=== PATIENT | male | born 1955 | race American Indian/Alaskan Native ===

== ENCOUNTER 2018-03-17 13:58 | Emergency (ER) | payer MEDICARE, MEDICAID, OTHER ==
[2018-03-17 14:15] VITALS: BP 90/52
--- NOTE | 2018-03-17 14:29 | EDM.PDOC ---
ED HPI GENERAL MEDICAL PROBLEM - General Chief Complaint: Genitourinary Problem Stated Complaint: UNK ISSUES Time Seen by Provider: 03/17/18 14:03 - History of Present Illness INITIAL COMMENTS - FREE TEXT/NARRATIVE: HISTORY AND PHYSICAL: History of present illness: The patient is a 62-year-old male with a history of prostate cancer who is followed in the oncology clinic and is scheduled to have a bone scan done at 2: 30 PM today and who checked into the ED after being dropped off at the radiology department by oncology staff and came down and checked into the ED for evaluation of scrotal swelling. The patient knew that he had a bone scan to be done and he has been injected with the radioactive diet but he still came down to the ER and registered. He says his scrotal swelling has been going on for 3 weeks and he is concerned because he feels like it's "going to pop". He's been passing his urine without difficulty and has no fever chills abdominal pain hematuria or flank pain. He has a history of a fracture of his left leg which was thinned at [place] and he has had persistent swelling of the left lower extremity since that time which is not new or different. The patient is having the bone scan because they saw a spot on his spine and was concerned that this is either a new cancer or recurrence of his prostate cancer. The patient tells me he has discomfort at his scrotum and it is not right or left but the whole area. He said that this happened in the past and he was given a medicine "to get the fluid out" and that is what he is seeking. He says that there is tension of the scrotum and discomfort but does not specifically one area of pain. Review of systems: As per history of present illness and below otherwise all systems reviewed and negative. Past medical history: As per history of present illness and as reviewed below otherwise noncontributory. Surgical history: As per history of present illness and as reviewed below otherwise noncontributory. Social history: No reported history of drug or alcohol abuse. Family history: As per history of present illness and as reviewed below otherwise noncontributory. Physical exam: General: Well-developed well-nourished man who is nontoxic and has difficulty moving secondary to his left leg chronic injury. He speaking clearly and easily without distress. HEENT: Atraumatic, normocephalic,, negative for conjunctival pallor or scleral icterus, mucous membranes moist, throat clear, neck supple, nontender, trachea midline. Lungs: Clear to auscultation, breath sounds equal bilaterally, chest nontender. No worker breathing wheezing or stridor Heart: S1S2, regula rate and rhythm no overt murmurs Abdomen: Soft nondistended old well-healed scars are seen and there is no tenderness on palpation no rebound and no guarding. Bowel sounds are hypoactive Pelvis: Stable nontender. Genitourinary: Penis is involuted inside the foreskin and there is no inguinal adenopathy and no suprapubic tenderness. The scrotum is grossly swollen and edematous but is soft and it is symmetrical in appearance. The testicles are difficult to palpate within this edematous scrotum. There are no skin changes erythema or rashes appreciated. Rectal: Deferred. Extremities: Atraumatic with the entire left lower extremity from hip to foot is edematous with firm edema which the patient states is not new or different and he has decreased range of motion at the hip and knee secondary to his subacute trauma. All other extremities have full range of motion without defects or deficits Neurovascular unremarkable. Neuro: Awake, alert, oriented. Cranial nerves II through XII unremarkable. Cerebellum unremarkable. Motor and sensory unremarkable throughout. Exam nonfocal. Diagnostics: [] Therapeutics: [] As the patient needs to be in bone scan momentarily for a scheduled test to evaluate these areas on his spine and he has been injected with radioactive dye for this test, I will discuss the situation with a provider in oncology clinic, Sadaf Foster. At this point I would recommend a scrotal ultrasound and follow- up with Dr. Simeon as the patient has seen him in the distant past. I will discuss with the provider Sadaf ordering that scrotal ultrasound and then following up as an outpatient Impression: Scrotal swelling subacute stable Definitive disposition and diagnosis as appropriate pending reevaluation and review of above. Right Groin Pain Score (Numeric/FACES): 5 - Related Data Allergies Allergy/AdvReac Type Severity Reaction Status Date / Time lisinopril Allergy Cough Verified 06/10/17 10:05 methocarbamol Allergy Muscle Verified 06/10/17 10:05 Weakness Home Meds: Home Meds Albuterol Sulfate 1 unit NEB ASDIRECTED PRN 06/08/17 [History] Ascorbic Acid [Vitamin C] 2 tab PO DAILY 06/08/17 [History] Atenolol 25 mg PO DAILY 06/08/17 [History] Calcium Carbonate [Calcium] 2 tab PO DAILY 06/08/17 [History] Cholecalciferol (Vitamin D3) [Vitamin D3] 5,000 units PO DAILY 06/08/17 [History ] Cyanocobalamin (Vitamin B12) [Vitamin B12] 500 mcg PO BEDTIME 06/08/17 [History] Leuprolide [Lupron Depot 4-Month] 1 injection IM ASDIRECTED 06/08/17 [History] Losartan Potassium 100 mg PO DAILY 06/08/17 [History] Mometasone/Formoterol [Dulera 100-5 MCG] 1 puff INH BID 06/08/17 [History] Naproxen 500 mg PO BID PRN 06/08/17 [History] Omeprazole 20 mg PO DAILY 06/08/17 [History] Potassium Chloride [Klor-Con 8] 8 meq PO DAILY 06/08/17 [History] Venlafaxine [Effexor] 75 mg PO DAILY 06/08/17 [History] amLODIPine [Norvasc] 5 mg PO DAILY 06/08/17 [History] predniSONE [Prednisone] 10 mg PO DAILY 06/08/17 [History] Past Medical History Cardiovascular History: Reports: Hypertension Respiratory History: Reports: Asthma Gastrointestinal History: Reports: GERD Genitourinary History: Reports: Prostate Disorder Other Genitourinary History: prostate cancer Musculoskeletal History: Reports: Arthritis, RA Psychiatric History: Reports: Depression Endocrine/Metabolic History: Reports: None Oncologic (Cancer) History: Reports: Prostate - Past Surgical History Head Surgeries/Procedures: Reports: None Male Surgical History: Reports: Prostatectomy Musculoskeletal Surgical History: Reports: Hip Replacement Social & Family History - Caffeine Use Caffeine Use: Reports: Coffee, Tea ED ROS GENERAL - Review of Systems Review Of Systems: ROS reveals no pertinent complaints other than HPI. ED EXAM, GENERAL - Physical Exam Exam: See Below (See dictation) Course - Vital Signs Last Recorded V/S: Last Vital Signs Temp 36.7 C 03/17/18 14:10 Pulse 101 H 03/17/18 14:10 Resp 18 03/17/18 14:10 BP 90/52 L 03/17/18 14:10 Pulse Ox 96 03/17/18 14:10 Departure - Departure Time of Disposition: 14:38 Disposition: Home, Self-Care 01 Condition: Good Clinical Impression: Scrotal swelling - Discharge Information Referrals: Ricardo Rod MD [Primary Care Provider] - Forms: ED Department Discharge Additional Instructions: The following information is given to patients seen in the emergency department who are being discharged to home. This information is to outline your options for follow-up care. We provide all patients seen in our emergency department with a follow-up referral. The need for follow-up, as well as the timing and circumstances, are variable depending upon the specifics of your emergency department visit. If you don't have a primary care physician on staff, we will provide you with a referral. We always advise you to contact your personal physician following an emergency department visit to inform them of the circumstance of the visit and for follow-up with them and/or the need for any referrals to a consulting specialist. The emergency department will also refer you to a specialist when appropriate. This referral assures that you have the opportunity for followup care with a specialist. All of these measure are taken in an effort to provide you with optimal care, which includes your followup. Under all circumstances we always encourage you to contact your private physician who remains a resource for coordinating your care. When calling for followup care, please make the office aware that this follow-up is from your recent emergency room visit. If for any reason you are refused follow-up, please contact the [facility] emergency department at and ask to speak to the emergency department charge nurse. [facility] [address] [place] [id number] Please go to bone scan immediately to have your tests done. The oncology clinic will organize getting a scrotal ultrasound and follow-up for these tests. Return to ER as needed and as discussed
== END 2018-03-17 14:47 | disposition home or self-care (01) ==
LOC: MW.ED 13:58
DX: N50.89 Other specified disorders of the male genital organs (principal); I10 Essential (primary) hypertension; J45.909 Unspecified asthma, uncomplicated; K21.9 Gastro-esophageal reflux disease without esophagitis; F32.9 Major depressive disorder, single episode, unspecified; Z79.899 Other long term (current) drug therapy; Z88.8 Allergy status to other drugs, medicaments and biological substances
CPT/HCPCS: 99283

== ENCOUNTER 2018-04-28 14:00 | Inpatient (IN) | payer MEDICARE, MEDICAID ==
[2018-04-28] MEDS ORDERED: Ondansetron 4 MG/2 ML SDV IVPUSH PRN (16:10)
[2018-04-28] MEDS ORDERED: Prochlorperazine 10 MG Tab PO PRN (16:23)
--- NOTE | 2018-04-28 16:30 | PCM.HP ---
H&P History of Present Illness - General Date of Service: 04/28/18 Source of Information: Patient, Family History Limitations: Reports: No Limitations - History of Present Illness Initial Comments - Free Text/Narative: Patient is a 62-year-old male with history of prostate cancer that has metastasized to his bones. The patient was discharged from [facility] in [place] yesterday. He had been admitted for pain control. His sister took him home to [place] and was unable to get him out of the car. He slept in the car. She spoke to oncology here in [place] who direct admitted him for pain control, hospice consult, and [facility] placement. He is reporting severe pain in the left hip. He reports previous pin placement/surgery in left femur. He was told that a screw broke off in the distal femur. He has an open wound on the left trochanter that is painful as well. He is unsure how long it has been there. He denies fever or chills. The patient has not been mobile since December. He uses fentanyl patch, oxycodone and Dilaudid by mouth without relief. He reports he is no longer getting treatment for his cancer. - Related Data Allergies/Adverse Reactions: Allergies Allergy/AdvReac Type Severity Reaction Status Date / Time lisinopril Allergy Cough Verified 04/22/18 13:20 methocarbamol Allergy Muscle Verified 04/22/18 13:20 Weakness Home Medications: Home Meds Calcium Carbonate [Oyster Shell Calcium] 1 tab PO DAILY 04/22/18 [History] Docusate Sodium 1 tab PO DAILY 04/22/18 [History] Gabapentin [Neurontin] 1 tab PO TID 04/22/18 [History] HYDROmorphone [Dilaudid] 1 tab PO Q4H PRN 04/22/18 [History] Losartan [Cozaar] 1 tab PO DAILY 04/22/18 [History] Naproxen [Naprosyn] 1 tab PO BID PRN 04/22/18 [History] Omeprazole 1 tab PO DAILY 04/22/18 [History] Ondansetron [Zofran] 1 tab PO ASDIRECTED PRN 04/22/18 [History] IBV740/Iron Fumarate/FA/DSS [ 19 Tablet] 1 tab PO DAILY 04/22/18 [ History] Polyethylene Glycol [Polyox Wsr-301] 1 gm PO DAILY 04/22/18 [History] Potassium Chloride [Klor-Con 8] 1 tab PO BID 04/22/18 [History] Prochlorperazine [Compazine] 1 tab PO Q6H PRN 04/22/18 [History] fentaNYL [Fentanyl] 25 mcg TOP ASDIRECTED 04/22/18 [History] predniSONE [Prednisone] 1 tab PO BID 04/22/18 [History] Albuterol Sulfate [Proair Hfa] 8.5 gm IH QID PRN 04/28/18 [History] Cholecalciferol (Vitamin D3) [Vitamin D3] 3 tab PO DAILY 04/28/18 [History] oxyCODONE 5 mg PO Q4HR PRN 04/28/18 [History] Past Medical History HEENT History: Reports: None Cardiovascular History: Reports: Heart Murmur, Hypertension Respiratory History: Reports: Asthma Gastrointestinal History: Reports: GERD, PUD Genitourinary History: Reports: Prostate Disorder Other Genitourinary History: prostate cancer Musculoskeletal History: Reports: Arthritis, RA Neurological History: Reports: None Psychiatric History: Reports: Depression Endocrine/Metabolic History: Reports: None Hematologic History: Reports: Anemia Immunologic History: Reports: None Oncologic (Cancer) History: Reports: Bone, Prostate Dermatologic History: Reports: Decubitus Ulcer - Infectious Disease History Infectious Disease History: Reports: Mumps - Past Surgical History Head Surgeries/Procedures: Reports: None HEENT Surgical History: Reports: None Cardiovascular Surgical History: Reports: None Respiratory Surgical History: Reports: None GI Surgical History: Reports: None Male Surgical History: Reports: Prostatectomy Endocrine Surgical History: Reports: None Neurological Surgical History: Reports: None Musculoskeletal Surgical History: Reports: Hip Replacement Oncologic Surgical History: Reports: None Dermatological Surgical History: Reports: None Social & Family History - Family History Family Medical History: Noncontributory - Tobacco Use Smoking Status *Q: Former Smoker Years of Tobacco use: 40 Used Tobacco, but Quit: Yes Month/Year Tobacco Last Used: over 1 yr ago Second Hand Smoke Exposure: No - Caffeine Use Caffeine Use: Reports: None H&P Review of Systems - Review of Systems: Review Of Systems: See Below General: Reports: No Symptoms. Denies: Fever, Chills HEENT: Reports: No Symptoms Pulmonary: Reports: Shortness of Breath, Wheezing. Denies: Cough Cardiovascular: Reports: No Symptoms Gastrointestinal: Reports: No Symptoms Genitourinary: Reports: No Symptoms Musculoskeletal: Reports: Other (left hip and leg pain) Skin: Reports: Wound (left greater trochanter open wound with discharge, no sign of necrosis) Psychiatric: Reports: No Symptoms Neurological: Reports: No Symptoms Hematologic/Lymphatic: Reports: No Symptoms Immunologic: Reports: No Symptoms Exam - Exam Exam: See Below - Vital Signs Vital Signs: Last Vital Signs Temp 99.1 F 04/28/18 15:52 Pulse 108 H 04/28/18 15:52 Resp 20 04/28/18 15:52 BP 118/66 04/28/18 15:52 Pulse Ox 96 04/28/18 15:52 Weight: 111.5 kg - Exam General: Alert, Oriented, Cooperative HEENT: Conjunctiva Clear, EOMI, Mucosa Moist & [place], Posterior Pharynx Clear, Pupils Equal, Pupils Reactive Neck: Supple Lungs: Clear to Auscultation, Other (increased work of breathing with movement) Cardiovascular: Regular Rhythm, Tachycardia GI/Abdominal Exam: Normal Bowel Sounds, Soft, Non-Tender, No Organomegaly Extremities: Pedal Edema Skin: Warm, Dry, Wound (open left greater trochanter wound with draginage, no sign of necrosis), Decubitis (stage 1 on sacrum, stage 2 on left buttock) Neuro Extensive - Mental Status: Alert, Oriented x3, Normal Mood/Affect, Normal Cognition Psychiatric: Alert, Normal Affect, Normal Mood Problem List Initiated/Reviewed/Updated: Yes Orders Last 24hrs: Active Orders 24 hr Category Date Time Status Intake and Output [RC] ASDIRECTED Care 04/28/18 16:12 Active Vital Signs [RC] PER UNIT ROUTINE Care 04/28/18 16:12 Active Consult to Hospice [CONS] Routine Cons 04/28/18 16:10 Active Regular Diet [DIET] Diet 04/28/18 Dinner Active CBC WITH AUTO DIFF [HEME] Routine Lab 04/28/18 16:06 Ordered COMPREHENSIVE METABOLIC PN,CMP [CHEM] Routine Lab 04/28/18 16:06 Ordered CREATINE KINASE,CK [CHEM] Routine Lab 04/28/18 16:06 Ordered CULTURE BLOOD [BC] Routine Lab 04/28/18 16:06 Ordered CULTURE URINE [RM] Routine Lab 04/28/18 16:06 Ordered CULTURE WOUND [RM] Routine Lab 04/28/18 16:06 Ordered INR,PT,PROTHROMBIN TIME [COAG] Routine Lab 04/28/18 16:06 Ordered LACTATE WITH REFLEX [BG] Routine Lab 04/28/18 16:06 Ordered SEDIMENTATION RATE AUTO [HEME] Routine Lab 04/28/18 16:06 Ordered UA W/MICROSCOPIC [URIN] Routine Lab 04/28/18 16:06 Ordered VANCOMYCIN TROUGH [CHEM] Routine Lab 04/29/18 15:45 Ordered Albuterol [Proventil HFA] Med 04/28/18 16:23 Ordered 8.5 gm INH QID PRN Calcium Carbonate Med 04/29/18 09:00 Ordered 1 tab PO DAILY Cholecalciferol (Vitamin D3) [Vitamin D3] Med 04/29/18 09:00 Ordered 3 tab PO DAILY Docusate Sodium [Colace] Med 04/29/18 09:00 Ordered 1 tab PO DAILY Enoxaparin [Lovenox] Med 04/28/18 16:30 Active 40 mg SUBCUT Q24H Gabapentin [Neurontin] Med 04/28/18 22:00 Ordered 1 tab PO TID HYDROmorphone [Dilaudid] Med 04/28/18 16:22 Ordered 2 mg IVPUSH Q4H PRN Losartan Med 04/29/18 09:00 Ordered 1 tab PO DAILY Omeprazole Med 04/29/18 09:00 Ordered 1 tab PO DAILY Ondansetron [Zofran] Med 04/28/18 16:10 Active 4 mg IVPUSH Q4H PRN BAL298/Iron Fumarate/FA/DSS [ 19 Tablet] Med 04/29/18 09:00 Ordered 1 tab PO DAILY Polyethylene Glycol [Polyox Wsr-301] Med 04/29/18 09:00 Ordered 1 gm PO DAILY Potassium Chloride [Klor-Con 8] Med 04/28/18 21:00 Ordered 1 tab PO BID Prochlorperazine [Compazine] Med 04/28/18 16:23 Ordered 1 tab PO Q6H PRN Vancomycin 1,250 mg Med 04/28/18 16:45 Active Sodium Chloride 0.9% [Normal Saline] 250 ml IV Q8H Vancomycin Pharmacy to Dose [Pharmacy to Dose - Med 04/28/18 16:15 Active Vancomycin] 1 dose .XX ASDIRECTED fentaNYL [Fentanyl] Med 08/02/18 16:30 Ordered 25 mcg TOP ASDIRECTED predniSONE Med 04/28/18 21:00 Ordered 1 tab PO BID Medication Orders Albuterol (Proventil Hfa) 8.5 gm INH QID PRN PRN Reason: Wheezing Docusate Sodium (Colace) mg PO DAILY SANA Enoxaparin Sodium (Lovenox) 40 mg SUBCUT Q24H SANA Gabapentin (Neurontin) mg PO TID SANA Hydromorphone HCl (Dilaudid) 2 mg IVPUSH Q4H PRN PRN Reason: Pain Vancomycin HCl 1,250 mg/ (Sodium Chloride) 250 mls @ 166.667 mls/hr IV Q8H [facility]NA Non-Formulary Medication (Calcium Carbonate) 1 tab PO DAILY [facility]NA Non-Formulary Medication (Cholecalciferol (Vitamin D3) [Vitamin D3]) 3 tab PO DAILY [facility]NA Non-Formulary Medication (Fentanyl [Fentanyl]) 25 mcg TOP ASDIRECTED [facility] Non-Formulary Medication (Losartan) 1 tab PO DAILY [facility] Non-Formulary Medication (Kun195/Iron Fumarate/Fa/Dss [ 19 Tablet]) 1 tab PO DAILY [facility] Non-Formulary Medication (Polyethylene Glycol [Polyox Wsr-301]) 1 gm PO DAILY [facility]NA Omeprazole (Omeprazole) mg PO DAILY [facility]NA Ondansetron HCl (Zofran) 4 mg IVPUSH Q4H PRN PRN Reason: Nausea/Vomiting Potassium Chloride (Klor-Con 8) meq PO BID SANA Prednisone (Prednisone) mg PO BID [facility]NA Prochlorperazine Maleate (Compazine) mg PO Q6H PRN PRN Reason: Nausea Vancomycin HCl (Pharmacy To Dose - Vancomycin) 1 dose .XX ASDIRECTED [facility] ASSESSMENT/PLAN 1. admit observation 2. Full code 3.Vitals per routine 4. I/Os per routine 5. activity- with assist 6. diet- regular diet 7. DVT prophylaxis- lovenox 40 q 24 hrs 8. Intractable Pain secondary to bone mets Plan- Per patient and family request hospice consult for goals of care and pain control. Case management to help with NH placement. Family does not think they can take care of him anymore at home. Pain control with home fentanyl patch and Dilaudid 2 mg IV q 4 hours 9. Left greater trochanter wound Plan- Intial labs- CBC, CMP, lactate, INR, sed rate, Blood culture, wound culture, UA, UC, and CK. Vancomycin IV dose per pharmacy. No imagaing at this time due to patient's hospice request. May need to adjust plan base on lab results.
[2018-04-28] MEDS: predniSONE 5 MG Tab PO SCH (16:56)
[2018-04-28] MEDS: Enoxaparin 40 MG/0.4 ML Syringe SUBCUT SCH (16:57)
[2018-04-28 17:30] LABS: CHLORIDE,CL 101 mmol/L (98-107); SODIUM,NA 134 mmol/L (136-148)
[2018-04-28] MEDS: Potassium Chloride 8 MEQ Tab.ER PO SCH (21:51)
[2018-04-28] MEDS: HYDROmorphone 2 MG/ML SDV IVPUSH PRN (21:51)
[2018-04-28] MEDS: Gabapentin 300 MG Cap PO SCH (21:51)
[2018-04-29] MEDS: HYDROmorphone 2 MG/ML SDV IVPUSH PRN ×5 (03:26→21:06)
[2018-04-29] MEDS: Gabapentin 300 MG Cap PO SCH ×3 (06:33→21:03)
[2018-04-29] MEDS: Omeprazole 20 MG Cap.CR PO SCH (06:33)
[2018-04-29 07:27] LABS: CHLORIDE,CL 103 mmol/L (98-107); SODIUM,NA 137 mmol/L (136-148)
--- NOTE | 2018-04-29 07:37 | PCM.PN ---
- General Info Date of Service: 04/29/18 Admission Dx/Problem (Free Text): Patient is 62 year old male originally admitted for intractable pain secondary to prostate cancer and metastases to the bone wanting hospice and group home placement. The patient reports his night was ok. His pain, mostly in the left hip and leg, is 4/10 when not moving, but increases to a 8/10 when he has to move. He denies issues with eating, drinking, or going to the bathroom. He denies chest pain, shortness of breath, or abdominal pain. - Review of Systems General: Reports: No Symptoms HEENT: Reports: No Symptoms Pulmonary: Reports: No Symptoms Cardiovascular: Reports: No Symptoms Gastrointestinal: Reports: No Symptoms Genitourinary: Reports: No Symptoms Musculoskeletal: Reports: Leg Pain (left) Skin: Reports: Other Neurological: Reports: No Symptoms Psychiatric: Reports: No Symptoms - Patient Data Vitals - Most Recent: Last Vital Signs Temp 98.8 F 04/29/18 05:00 Pulse 89 04/29/18 05:00 Resp 20 04/29/18 05:00 BP 109/67 04/29/18 05:00 Pulse Ox 92 L 04/29/18 05:00 Weight - Most Recent: 111.5 kg I&O - Last 24 Hours: Intake & Output 04/28/18 04/29/18 04/29/18 22:59 06:59 14:59 Intake Total 250 840 Output Total 250 Balance 250 590 Lab Results Last 24 Hours: Laboratory Results - last 24 hr 04/28/18 04/28/18 04/28/18 Range/Units 16:30 16:30 16:30 WBC 7.46 (4.0-11.0) K/uL RBC 2.77 L (4.50-5.90) M/uL Hgb 7.4 L (13.0-17.0) g/dL Hct 24.0 L (38.0-50.0) % MCV 86.6 (80.0-98.0) fL MCH 26.7 L (27.0-32.0) pg MCHC 30.8 L (31.0-37.0) g/dL RDW Std Deviation 60.1 (28.0-62.0) fl RDW Coeff of [place] 19 H (11.0-15.0) % Plt Count 293 (150-400) K/uL MPV 7.80 (7.40-12.00) fL Neut % (Auto) 74.6 (48.0-80.0) % Lymph % (Auto) 10.3 L (16.0-40.0) % [place] % (Auto) 10.2 (0.0-15.0) % Eos % (Auto) 4.6 (0.0-7.0) % Baso % (Auto) 0.3 (0.0-1.5) % Neut # (Auto) 5.6 (1.4-5.7) K/uL Lymph # (Auto) 0.8 (0.6-2.4) K/uL [place] # (Auto) 0.8 (0.0-0.8) K/uL Eos # (Auto) 0.3 (0.0-0.7) K/uL Baso # (Auto) 0.0 (0.0-0.1) K/uL Add Manual Diff Neutrophils % (Manual) (48.0-80.0) % Band Neutrophils % % Lymphocytes % (Manual) (16.0-40.0) % Monocytes % (Manual) (0.0-15.0) % Eosinophils % (Manual) (0.0-7.0) % Myelocytes % % Nucleated RBC % 0.4 /100WBC Absolute Seg Neuts (1.4-5.7) Band Neutrophils # Lymphocytes # (Manual) (0.6-2.4) Monocytes # (Manual) (0.0-0.8) Eosinophils # (Manual) (0.0-0.7) Absolute Myelocytes Nucleated RBCs # 0 K/uL ESR 82 H (0-19) mm/hr INR 1.17 Lactate 3.3 H (0.20-2.00) mmol/L Sodium (136-148) mmol/L Potassium (3.5-5.1) mmol/L Chloride (98-107) mmol/L Carbon Dioxide (21.0-32.0) mmol/L BUN (7.0-18.0) mg/dL Creatinine (0.8-1.3) mg/dL Est Cr Clr Drug Dosing mL/min Estimated GFR (MDRD) ml/min Glucose (74-106) mg/dL Calcium (8.5-10.1) mg/dL Total Bilirubin (0.2-1.0) mg/dL AST (15-37) IU/L ALT (14-63) IU/L Alkaline Phosphatase (46-116) U/L Creatine Kinase (26-308) U/L Total Protein (6.4-8.2) g/dL Albumin (3.4-5.0) g/dL Globulin (2.0-3.5) g/dL Albumin/Globulin Ratio (1.3-2.8) Urine Color Urine Appearance Urine pH (5.0-8.0) Ur Specific [place] (1.001-1.035) Urine Protein (NEGATIVE) mg/dL Urine Glucose (UA) (NEGATIVE) mg/dL Urine Ketones (NEGATIVE) mg/dL Urine Occult Blood (NEGATIVE) Urine Nitrite (NEGATIVE) Urine Bilirubin (NEGATIVE) Urine Urobilinogen (<2.0) EU/dL Ur Leukocyte Esterase (NEGATIVE) Urine RBC (0-2/HPF) Urine WBC (0-5/HPF) Ur Epithelial Cells (NONE-FEW) Urine Bacteria (NEGATIVE) 04/28/18 04/28/18 04/29/18 Range/Units 16:30 21:01 00:30 WBC (4.0-11.0) K/uL RBC (4.50-5.90) M/uL Hgb (13.0-17.0) g/dL Hct (38.0-50.0) % MCV (80.0-98.0) fL MCH (27.0-32.0) pg MCHC (31.0-37.0) g/dL RDW Std Deviation (28.0-62.0) fl RDW Coeff of [place] (11.0-15.0) % Plt Count (150-400) K/uL MPV (7.40-12.00) fL Neut % (Auto) (48.0-80.0) % Lymph % (Auto) (16.0-40.0) % [place] % (Auto) (0.0-15.0) % Eos % (Auto) (0.0-7.0) % Baso % (Auto) (0.0-1.5) % Neut # (Auto) (1.4-5.7) K/uL Lymph # (Auto) (0.6-2.4) K/uL [place] # (Auto) (0.0-0.8) K/uL Eos # (Auto) (0.0-0.7) K/uL Baso # (Auto) (0.0-0.1) K/uL Add Manual Diff Neutrophils % (Manual) (48.0-80.0) % Band Neutrophils % % Lymphocytes % (Manual) (16.0-40.0) % Monocytes % (Manual) (0.0-15.0) % Eosinophils % (Manual) (0.0-7.0) % Myelocytes % % Nucleated RBC % /100WBC Absolute Seg Neuts (1.4-5.7) Band Neutrophils # Lymphocytes # (Manual) (0.6-2.4) Monocytes # (Manual) (0.0-0.8) Eosinophils # (Manual) (0.0-0.7) Absolute Myelocytes Nucleated RBCs # K/uL ESR (0-19) mm/hr INR Lactate 3.0 H (0.20-2.00) mmol/L Sodium 134 L (136-148) mmol/L Potassium 4.3 (3.5-5.1) mmol/L Chloride 101 (98-107) mmol/L Carbon Dioxide 24.9 (21.0-32.0) mmol/L BUN 18 (7.0-18.0) mg/dL Creatinine 0.8 (0.8-1.3) mg/dL Est Cr Clr Drug Dosing 95.74 mL/min Estimated GFR (MDRD) > 60.0 ml/min Glucose 125 H (74-106) mg/dL Calcium 9.1 (8.5-10.1) mg/dL Total Bilirubin 0.2 (0.2-1.0) mg/dL AST 154 H (15-37) IU/L ALT 11 L (14-63) IU/L Alkaline Phosphatase 457 H (46-116) U/L Creatine Kinase 369 H (26-308) U/L Total Protein 5.8 L (6.4-8.2) g/dL Albumin 2.4 L (3.4-5.0) g/dL Globulin 3.4 (2.0-3.5) g/dL Albumin/Globulin Ratio 0.7 L (1.3-2.8) Urine Color DARK YELLOW Urine Appearance CLEAR Urine pH 5.5 (5.0-8.0) Ur Specific [place] 1.025 (1.001-1.035) Urine Protein 30 (NEGATIVE) mg/dL Urine Glucose (UA) NEGATIVE (NEGATIVE) mg/dL Urine Ketones NEGATIVE (NEGATIVE) mg/dL Urine Occult Blood NEGATIVE (NEGATIVE) Urine Nitrite NEGATIVE (NEGATIVE) Urine Bilirubin NEGATIVE (NEGATIVE) Urine Urobilinogen 1.0 (<2.0) EU/dL Ur Leukocyte Esterase NEGATIVE (NEGATIVE) Urine RBC NONE SEEN (0-2/HPF) Urine WBC 1-3 (0-5/HPF) Ur Epithelial Cells NOT SEEN (NONE-FEW) Urine Bacteria RARE (NEGATIVE) 04/29/18 Range/Units 05:30 WBC 8.04 (4.0-11.0) K/uL RBC 2.68 L (4.50-5.90) M/uL Hgb 7.2 L (13.0-17.0) g/dL Hct 23.3 L (38.0-50.0) % MCV 86.9 (80.0-98.0) fL MCH 26.9 L (27.0-32.0) pg MCHC 30.9 L (31.0-37.0) g/dL RDW Std Deviation 61.2 (28.0-62.0) fl RDW Coeff of [place] 19 H (11.0-15.0) % Plt Count 290 (150-400) K/uL MPV 7.80 (7.40-12.00) fL Neut % (Auto) (48.0-80.0) % Lymph % (Auto) (16.0-40.0) % [place] % (Auto) (0.0-15.0) % Eos % (Auto) (0.0-7.0) % Baso % (Auto) (0.0-1.5) % Neut # (Auto) (1.4-5.7) K/uL Lymph # (Auto) (0.6-2.4) K/uL [place] # (Auto) (0.0-0.8) K/uL Eos # (Auto) (0.0-0.7) K/uL Baso # (Auto) (0.0-0.1) K/uL Add Manual Diff YES Neutrophils % (Manual) 70 (48.0-80.0) % Band Neutrophils % 4 % Lymphocytes % (Manual) 8 L (16.0-40.0) % Monocytes % (Manual) 9 (0.0-15.0) % Eosinophils % (Manual) 7 (0.0-7.0) % Myelocytes % 2 % Nucleated RBC % 0.4 /100WBC Absolute Seg Neuts 5.6 (1.4-5.7) Band Neutrophils # 0.3 Lymphocytes # (Manual) 0.6 (0.6-2.4) Monocytes # (Manual) 0.7 (0.0-0.8) Eosinophils # (Manual) 0.6 (0.0-0.7) Absolute Myelocytes 0.2 Nucleated RBCs # 0 K/uL ESR (0-19) mm/hr INR Lactate (0.20-2.00) mmol/L Sodium (136-148) mmol/L Potassium (3.5-5.1) mmol/L Chloride (98-107) mmol/L Carbon Dioxide (21.0-32.0) mmol/L BUN (7.0-18.0) mg/dL Creatinine (0.8-1.3) mg/dL Est Cr Clr Drug Dosing mL/min Estimated GFR (MDRD) ml/min Glucose (74-106) mg/dL Calcium (8.5-10.1) mg/dL Total Bilirubin (0.2-1.0) mg/dL AST (15-37) IU/L ALT (14-63) IU/L Alkaline Phosphatase (46-116) U/L Creatine Kinase (26-308) U/L Total Protein (6.4-8.2) g/dL Albumin (3.4-5.0) g/dL Globulin (2.0-3.5) g/dL Albumin/Globulin Ratio (1.3-2.8) Urine Color Urine Appearance Urine pH (5.0-8.0) Ur Specific [place] (1.001-1.035) Urine Protein (NEGATIVE) mg/dL Urine Glucose (UA) (NEGATIVE) mg/dL Urine Ketones (NEGATIVE) mg/dL Urine Occult Blood (NEGATIVE) Urine Nitrite (NEGATIVE) Urine Bilirubin (NEGATIVE) Urine Urobilinogen (<2.0) EU/dL Ur Leukocyte Esterase (NEGATIVE) Urine RBC (0-2/HPF) Urine WBC (0-5/HPF) Ur Epithelial Cells (NONE-FEW) Urine Bacteria (NEGATIVE) Med Orders - Current: Current Medications Albuterol (Ventolin Hfa) 8 gm INH Q6HRRT PRN PRN Reason: Wheezing Calcium Carbonate/Glycine (Tums) 1,000 mg PO DAILY [facility] Cholecalciferol (Vitamin D3) 3,000 units PO DAILY [facility] Docusate Sodium (Colace) 100 mg PO DAILY [facility] Enoxaparin Sodium (Lovenox) 40 mg SUBCUT Q24H [facility] Last Admin: 04/28/18 16:57 Dose: 40 mg Fentanyl (Duragesic) 25 mcg TOP Q72H [facility] Gabapentin (Neurontin) 300 mg PO TID [facility] Last Admin: 04/29/18 06:33 Dose: 300 mg Hydromorphone HCl (Dilaudid) 2 mg IVPUSH Q4H PRN PRN Reason: Pain Last Admin: 04/29/18 03:26 Dose: 2 mg Vancomycin HCl 1,250 mg/ (Sodium Chloride) 250 mls @ 166.667 mls/hr IV Q8H [facility] Last Admin: 04/29/18 00:27 Dose: 166.667 mls/hr Losartan Potassium (Cozaar) 100 mg PO DAILY [facility] Omeprazole (Omeprazole) 20 mg PO ACBREAKFAST [facility] Last Admin: 04/29/18 06:33 Dose: 20 mg Ondansetron HCl (Zofran) 4 mg IVPUSH Q4H PRN PRN Reason: Nausea/Vomiting Gol500/Iron Fumarate /Fa/Dss [ 19 Tablet] 1 Tab 1 each PO DAILY [facility] Polyethylene Glycol (Miralax) 17 gm PO DAILY [facility] Potassium Chloride (Klor-Con 8) 8 meq PO BID [facility] Last Admin: 04/28/18 21:51 Dose: 8 meq Prednisone (Prednisone) 5 mg PO BIDMEALS [facility] Last Admin: 04/28/18 16:56 Dose: 5 mg Prochlorperazine Maleate (Compazine) 10 mg PO Q6H PRN PRN Reason: Nausea Vancomycin HCl (Pharmacy To Dose - Vancomycin) 1 dose .XX ASDIRECTED [facility] Discontinued Medications Heparin Sodium (Porcine) (Heparin Lock Flush 100 Units/Ml) 500 units FLUSH ONETIME ONE Stop: 04/28/18 14:28 Last Admin: 04/28/18 15:40 Dose: 500 units - Exam General: Alert, Oriented, Cooperative Lungs: Clear to Auscultation, Normal Respiratory Effort Cardiovascular: Regular Rate, Regular Rhythm GI/Abdominal Exam: Normal Bowel Sounds, Soft, Non-Tender (Male) Exam: Scrotal Swelling Extremities: Pedal Edema (bilateral but L>R) Skin: Warm, Dry, Other (sacral ulcer, left buttock ulcer, left greater trochanter wound that were present on admission) Neurological: No New Focal Deficit Psy/Mental Status: Alert, Normal Affect, Normal Mood - Problem List Review Problem List Initiated/Reviewed/Updated: Yes - My Orders Last 24 Hours: My Active Orders 04/28/18 16:06 CULTURE URINE [RM] Routine 04/28/18 16:10 Consult to Hospice [CONS] Routine Ondansetron [Zofran] 4 mg IVPUSH Q4H PRN 04/28/18 16:12 Intake and Output [RC] Q12H Vital Signs [RC] Q4H 04/28/18 16:15 Vancomycin Pharmacy to Dose [Pharmacy to Dose - Vancomycin] 1 dose .XX ASDIRECTED 04/28/18 16:22 HYDROmorphone [Dilaudid] 2 mg IVPUSH Q4H PRN 04/28/18 16:23 Albuterol [Ventolin HFA] 8 gm INH Q6HRRT PRN Prochlorperazine [Compazine] 10 mg PO Q6H PRN 04/28/18 16:25 CULTURE WOUND [RM] Routine 04/28/18 16:30 CULTURE BLOOD [BC] Routine Enoxaparin [Lovenox] 40 mg SUBCUT Q24H 04/28/18 17:00 predniSONE 5 mg PO BIDMEALS 04/28/18 21:00 Potassium Chloride [Klor-Con 8] 8 meq PO BID 04/28/18 22:00 Gabapentin [Neurontin] 300 mg PO TID 04/29/18 00:30 UA W/MICROSCOPIC [URIN] Routine 04/29/18 05:30 COMPREHENSIVE METABOLIC PN,CMP [CHEM] Routine 04/29/18 07:30 Omeprazole 20 mg PO ACBREAKFAST 04/29/18 09:00 Calcium Carbonate [Tums] 1,000 mg PO DAILY Cholecalciferol (Vitamin D3) [Vitamin D3] 3,000 units PO DAILY Docusate Sodium [Colace] 100 mg PO DAILY Losartan [Cozaar] 100 mg PO DAILY Patient's Own Medication [Ptom] 1 each PO DAILY Polyethylene Glycol 3350 [MiraLAX] 17 gm PO DAILY 05/01/18 09:00 fentaNYL [Duragesic] 25 mcg TOP Q72H - Plan Plan:: 1. Intractable Pain secondary to prostate cancer and mets to the bone- Continue working on pain control with fentanyl patch and Dilaudid. Hospice was consulted to help with pain control and goals of care. Will follow up with them today. Will also follow up with case management about group home placement. 2. Left greater trochanter wound- Patient on IV Vanco to treat infection. Wound culture and blood cultures are pending. 3. Chronic normocytic anemia- Patient is on iron tablets daily. He has no acute bleeding currently. If his hemoglobin drops below 7, we can consider blood transfusion. 4. PMH- asthma, HTN, GERD, RA- continue home medications.
[2018-04-29] MEDS: Cholecalciferol (Vitamin D3) 1,000 Unit Tab PO SCH (08:13)
[2018-04-29] MEDS: Calcium Carbonate 500 MG Tab.Chew PO SCH (08:13)
[2018-04-29] MEDS: predniSONE 5 MG Tab PO SCH ×2 (08:14→16:55)
[2018-04-29] MEDS: Losartan 50 MG Tab PO SCH (08:14)
[2018-04-29] MEDS: Docusate Sodium 100 MG Cap PO SCH (08:14)
[2018-04-29] MEDS: Polyethylene Glycol 3350 Powder 17 GM Packet PO SCH (08:22)
[2018-04-29] MEDS: [UNRECOGNIZED DRUG - OTHER] PO SCH (08:23)
[2018-04-29] MEDS: IRON FUMARATE PO SCH (08:23)
[2018-04-29] MEDS: DSS PO SCH (08:23)
[2018-04-29] MEDS: Potassium Chloride 8 MEQ Tab.ER PO SCH ×2 (08:24→21:02)
[2018-04-29] MEDS: Enoxaparin 40 MG/0.4 ML Syringe SUBCUT SCH (16:55)
[2018-04-29] MEDS: Nystatin Topical Powder 15 GM Bottle TOP SCH (21:03)
[2018-04-30] MEDS: HYDROmorphone 2 MG/ML SDV IVPUSH PRN ×5 (03:08→20:52)
[2018-04-30] MEDS: Gabapentin 300 MG Cap PO SCH ×3 (06:11→21:05)
[2018-04-30] MEDS: Nystatin Topical Powder 15 GM Bottle TOP SCH ×3 (06:11→21:05)
[2018-04-30] MEDS: Omeprazole 20 MG Cap.CR PO SCH (06:34)
[2018-04-30 06:40] LABS: CHLORIDE,CL 103 mmol/L (98-107); SODIUM,NA 136 mmol/L (136-148)
--- NOTE | 2018-04-30 08:09 | PCM.PN ---
- General Info Date of Service: 04/30/18 - Review of Systems General: Reports: Fever Pulmonary: Reports: Shortness of Breath Cardiovascular: Reports: No Symptoms Gastrointestinal: Reports: No Symptoms Genitourinary: Reports: No Symptoms Musculoskeletal: Reports: Leg Pain Skin: Reports: Other (left hip wound, left buttock ulcer) Neurological: Reports: Confusion Psychiatric: Reports: Confusion - Patient Data Vitals - Most Recent: Last Vital Signs Temp 100.4 F 04/30/18 03:12 Pulse 116 H 04/30/18 03:12 Resp 20 04/30/18 03:12 BP 100/52 L 04/30/18 03:12 Pulse Ox 93 L 04/30/18 03:12 Weight - Most Recent: 111.5 kg I&O - Last 24 Hours: Intake & Output 04/29/18 04/30/18 04/30/18 22:59 06:59 14:59 Intake Total 994 450 Balance 994 450 Lab Results Last 24 Hours: Laboratory Results - last 24 hr 04/28/18 04/28/18 04/28/18 Range/Units 16:30 16:30 16:30 WBC 7.46 (4.0-11.0) K/uL RBC 2.77 L (4.50-5.90) M/uL Hgb 7.4 L (13.0-17.0) g/dL Hct 24.0 L (38.0-50.0) % MCV 86.6 (80.0-98.0) fL MCH 26.7 L (27.0-32.0) pg MCHC 30.8 L (31.0-37.0) g/dL RDW Std Deviation 60.1 (28.0-62.0) fl RDW Coeff of [place] 19 H (11.0-15.0) % Plt Count 293 (150-400) K/uL MPV 7.80 (7.40-12.00) fL Neut % (Auto) 74.6 (48.0-80.0) % Lymph % (Auto) 10.3 L (16.0-40.0) % [place] % (Auto) 10.2 (0.0-15.0) % Eos % (Auto) 4.6 (0.0-7.0) % Baso % (Auto) 0.3 (0.0-1.5) % Neut # (Auto) 5.6 (1.4-5.7) K/uL Lymph # (Auto) 0.8 (0.6-2.4) K/uL [place] # (Auto) 0.8 (0.0-0.8) K/uL Eos # (Auto) 0.3 (0.0-0.7) K/uL Baso # (Auto) 0.0 (0.0-0.1) K/uL Add Manual Diff Neutrophils % (Manual) (48.0-80.0) % Band Neutrophils % % Lymphocytes % (Manual) (16.0-40.0) % Monocytes % (Manual) (0.0-15.0) % Eosinophils % (Manual) (0.0-7.0) % Nucleated RBC % 0.4 /100WBC Absolute Seg Neuts (1.4-5.7) Band Neutrophils # Lymphocytes # (Manual) (0.6-2.4) Monocytes # (Manual) (0.0-0.8) Eosinophils # (Manual) (0.0-0.7) Nucleated RBCs # 0 K/uL ESR 82 H (0-19) mm/hr INR 1.17 Lactate 3.3 H (0.20-2.00) mmol/L Sodium (136-148) mmol/L Potassium (3.5-5.1) mmol/L Chloride (98-107) mmol/L Carbon Dioxide (21.0-32.0) mmol/L BUN (7.0-18.0) mg/dL Creatinine (0.8-1.3) mg/dL Est Cr Clr Drug Dosing mL/min Estimated GFR (MDRD) ml/min Glucose (74-106) mg/dL Calcium (8.5-10.1) mg/dL Total Bilirubin (0.2-1.0) mg/dL AST (15-37) IU/L ALT (14-63) IU/L Alkaline Phosphatase (46-116) U/L Creatine Kinase (26-308) U/L Total Protein (6.4-8.2) g/dL Albumin (3.4-5.0) g/dL Globulin (2.0-3.5) g/dL Albumin/Globulin Ratio (1.3-2.8) Vancomycin Trough (5.0-10.0) ug/mL 04/28/18 04/29/18 04/30/18 Range/Units 16:30 15:43 06:00 WBC 10.81 (4.0-11.0) K/uL RBC 2.63 L (4.50-5.90) M/uL Hgb 7.0 L (13.0-17.0) g/dL Hct 22.8 L (38.0-50.0) % MCV 86.7 (80.0-98.0) fL MCH 26.6 L (27.0-32.0) pg MCHC 30.7 L (31.0-37.0) g/dL RDW Std Deviation 61.0 (28.0-62.0) fl RDW Coeff of [place] 19 H (11.0-15.0) % Plt Count 278 (150-400) K/uL MPV 8.00 (7.40-12.00) fL Neut % (Auto) (48.0-80.0) % Lymph % (Auto) (16.0-40.0) % [place] % (Auto) (0.0-15.0) % Eos % (Auto) (0.0-7.0) % Baso % (Auto) (0.0-1.5) % Neut # (Auto) (1.4-5.7) K/uL Lymph # (Auto) (0.6-2.4) K/uL [place] # (Auto) (0.0-0.8) K/uL Eos # (Auto) (0.0-0.7) K/uL Baso # (Auto) (0.0-0.1) K/uL Add Manual Diff YES Neutrophils % (Manual) 74 (48.0-80.0) % Band Neutrophils % 6 % Lymphocytes % (Manual) 15 L (16.0-40.0) % Monocytes % (Manual) 4 (0.0-15.0) % Eosinophils % (Manual) 1 (0.0-7.0) % Nucleated RBC % 0.3 /100WBC Absolute Seg Neuts 8.0 H (1.4-5.7) Band Neutrophils # 0.6 Lymphocytes # (Manual) 1.6 (0.6-2.4) Monocytes # (Manual) 0.4 (0.0-0.8) Eosinophils # (Manual) 0.1 (0.0-0.7) Nucleated RBCs # 0 K/uL ESR (0-19) mm/hr INR Lactate (0.20-2.00) mmol/L Sodium 134 L (136-148) mmol/L Potassium 4.3 (3.5-5.1) mmol/L Chloride 101 (98-107) mmol/L Carbon Dioxide 24.9 (21.0-32.0) mmol/L BUN 18 (7.0-18.0) mg/dL Creatinine 0.8 (0.8-1.3) mg/dL Est Cr Clr Drug Dosing 95.74 mL/min Estimated GFR (MDRD) > 60.0 ml/min Glucose 125 H (74-106) mg/dL Calcium 9.1 (8.5-10.1) mg/dL Total Bilirubin 0.2 (0.2-1.0) mg/dL AST 154 H (15-37) IU/L ALT 11 L (14-63) IU/L Alkaline Phosphatase 457 H (46-116) U/L Creatine Kinase 369 H (26-308) U/L Total Protein 5.8 L (6.4-8.2) g/dL Albumin 2.4 L (3.4-5.0) g/dL Globulin 3.4 (2.0-3.5) g/dL Albumin/Globulin Ratio 0.7 L (1.3-2.8) Vancomycin Trough 13.4 H (5.0-10.0) ug/mL 04/30/18 Range/Units 06:00 WBC (4.0-11.0) K/uL RBC (4.50-5.90) M/uL Hgb (13.0-17.0) g/dL Hct (38.0-50.0) % MCV (80.0-98.0) fL MCH (27.0-32.0) pg MCHC (31.0-37.0) g/dL RDW Std Deviation (28.0-62.0) fl RDW Coeff of [place] (11.0-15.0) % Plt Count (150-400) K/uL MPV (7.40-12.00) fL Neut % (Auto) (48.0-80.0) % Lymph % (Auto) (16.0-40.0) % [place] % (Auto) (0.0-15.0) % Eos % (Auto) (0.0-7.0) % Baso % (Auto) (0.0-1.5) % Neut # (Auto) (1.4-5.7) K/uL Lymph # (Auto) (0.6-2.4) K/uL [place] # (Auto) (0.0-0.8) K/uL Eos # (Auto) (0.0-0.7) K/uL Baso # (Auto) (0.0-0.1) K/uL Add Manual Diff Neutrophils % (Manual) (48.0-80.0) % Band Neutrophils % % Lymphocytes % (Manual) (16.0-40.0) % Monocytes % (Manual) (0.0-15.0) % Eosinophils % (Manual) (0.0-7.0) % Nucleated RBC % /100WBC Absolute Seg Neuts (1.4-5.7) Band Neutrophils # Lymphocytes # (Manual) (0.6-2.4) Monocytes # (Manual) (0.0-0.8) Eosinophils # (Manual) (0.0-0.7) Nucleated RBCs # K/uL ESR (0-19) mm/hr INR Lactate (0.20-2.00) mmol/L Sodium 136 (136-148) mmol/L Potassium 4.9 (3.5-5.1) mmol/L Chloride 103 (98-107) mmol/L Carbon Dioxide 26.1 (21.0-32.0) mmol/L BUN 18 (7.0-18.0) mg/dL Creatinine 0.8 (0.8-1.3) mg/dL Est Cr Clr Drug Dosing 95.74 mL/min Estimated GFR (MDRD) > 60.0 ml/min Glucose 125 H (74-106) mg/dL Calcium 9.0 (8.5-10.1) mg/dL Total Bilirubin 0.5 (0.2-1.0) mg/dL AST 140 H (15-37) IU/L ALT 11 L (14-63) IU/L Alkaline Phosphatase 511 H (46-116) U/L Creatine Kinase (26-308) U/L Total Protein 5.5 L (6.4-8.2) g/dL Albumin 2.2 L (3.4-5.0) g/dL Globulin 3.3 (2.0-3.5) g/dL Albumin/Globulin Ratio 0.7 L (1.3-2.8) Vancomycin Trough (5.0-10.0) ug/mL [place] Results Last 24 Hours: Microbiology 04/28/18 16:30 Aerobic Blood Culture - Preliminary Blood NO GROWTH AFTER 1 DAY Anaerobic Blood Culture - Preliminary NO GROWTH AFTER 1 DAY 04/28/18 16:25 Wound Culture - Preliminary Hip, Left Staphylococcus Aureus 04/28/18 16:40 Aerobic Blood Culture - Preliminary Blood - Venous NO GROWTH AFTER 1 DAY Anaerobic Blood Culture - Preliminary NO GROWTH AFTER 1 DAY Med Orders - Current: Current Medications Albuterol (Ventolin Hfa) 8 gm INH Q6HRRT PRN PRN Reason: Wheezing Calcium Carbonate/Glycine (Tums) 1,000 mg PO DAILY [facility] Last Admin: 04/29/18 08:13 Dose: 1,000 mg Cholecalciferol (Vitamin D3) 3,000 units PO DAILY [facility] Last Admin: 04/29/18 08:13 Dose: 3,000 units Docusate Sodium (Colace) 100 mg PO DAILY [facility] Last Admin: 04/29/18 08:14 Dose: 100 mg Enoxaparin Sodium (Lovenox) 40 mg SUBCUT Q24H [facility] Last Admin: 04/29/18 16:55 Dose: 40 mg Fentanyl (Duragesic) 25 mcg TOP Q72H [facility] Gabapentin (Neurontin) 300 mg PO TID [facility] Last Admin: 04/30/18 06:11 Dose: 300 mg Hydromorphone HCl (Dilaudid) 2 mg IVPUSH Q4H PRN PRN Reason: Pain Last Admin: 04/30/18 03:08 Dose: 2 mg Vancomycin HCl 1,250 mg/ (Sodium Chloride) 250 mls @ 166.667 mls/hr IV Q8H [facility] Last Infusion: 04/30/18 02:00 Dose: Infused Losartan Potassium (Cozaar) 100 mg PO DAILY [facility] Last Admin: 04/29/18 08:14 Dose: 100 mg Nystatin (Nystop) 0 gm TOP TID [facility] Last Admin: 04/30/18 06:11 Dose: 1 applic Omeprazole (Omeprazole) 20 mg PO ACBREAKFAST [facility] Last Admin: 04/30/18 06:34 Dose: 20 mg Ondansetron HCl (Zofran) 4 mg IVPUSH Q4H PRN PRN Reason: Nausea/Vomiting [id number]/Iron Fumarate /Fa/Dss [ 19 Tablet] 1 Tab 1 each PO DAILY [facility] Last Admin: 04/29/18 08:23 Dose: Not Given Polyethylene Glycol (Miralax) 17 gm PO DAILY [facility] Last Admin: 04/29/18 08:22 Dose: Not Given Potassium Chloride (Klor-Con 8) 8 meq PO BID [facility] Last Admin: 04/29/18 21:02 Dose: 8 meq Prednisone (Prednisone) 5 mg PO BIDMEALS [facility] Last Admin: 04/29/18 16:55 Dose: 5 mg Prochlorperazine Maleate (Compazine) 10 mg PO Q6H PRN PRN Reason: Nausea Vancomycin HCl (Pharmacy To Dose - Vancomycin) 1 dose .XX ASDIRECTED [facility] Discontinued Medications Heparin Sodium (Porcine) (Heparin Lock Flush 100 Units/Ml) 500 units FLUSH ONETIME ONE Stop: 04/28/18 14:28 Last Admin: 04/28/18 15:40 Dose: 500 units - Exam General: Alert. No: Oriented Lungs: Clear to Auscultation, Normal Respiratory Effort Cardiovascular: Regular Rhythm, Tachycardia GI/Abdominal Exam: Normal Bowel Sounds, Soft, Non-Tender Extremities: Pedal Edema (L>R) Skin: Warm, Dry Wound/Incisions: Drainage Psy/Mental Status: Other (Very confused, not oriented) - Problem List Review Problem List Initiated/Reviewed/Updated: Yes - My Orders Last 24 Hours: My Active Orders 04/29/18 07:30 Omeprazole 20 mg PO ACBREAKFAST 04/29/18 09:00 Calcium Carbonate [Tums] 1,000 mg PO DAILY Cholecalciferol (Vitamin D3) [Vitamin D3] 3,000 units PO DAILY Docusate Sodium [Colace] 100 mg PO DAILY Losartan [Cozaar] 100 mg PO DAILY Patient's Own Medication [Ptom] 1 each PO DAILY Polyethylene Glycol 3350 [MiraLAX] 17 gm PO DAILY 04/29/18 09:16 Resuscitation Status Routine 04/29/18 22:00 Nystatin [Nystop] See Dose Instructions TOP TID 05/01/18 09:00 fentaNYL [Duragesic] 25 mcg TOP Q72H - Plan Plan:: 1. Intractable Pain secondary to prostate cancer and mets to the bone- Continue working on pain control with fentanyl patch and Dilaudid. Hospice was consulted to help with pain control and goals of care. Case management is working on placement. He is currently applying for [place] medicaid. [facility] needs this medicaid before he would be accepted there. There is a meeting scheduled on Wednesday to address this. 2. Left greater trochanter wound growing S. Aurues, sensitive to Vancomycin- Patient on IV Vanco to treat infection. It seems that his infection is getting worse, his white count went up, he developed a fever, and he is tachycardic. His condition was discussed with his sister. It was explained that he may need surgery on his leg. The patient and family were offered transfer to [place] or [place]. They don't want to go, instead they would like to continue on antibiotics and see how he does. 3. Chronic normocytic anemia-the patient's hemoglobin dropped down to 7, We will transfuse him 2 units of RBCs, consent was obtained from the sister. 4. PMH- asthma, HTN, GERD, RA- continue home medications. Code status was discussed with patient and family. Currently the patient is full code. The sister stated she would talk to patient about code status today. We are still waiting on hospice consult to help facilitate this conversion and goals of care with patient. We will follow up on code status later today to see if they have any questions or if there are any changes to his status.
[2018-04-30] MEDS: predniSONE 5 MG Tab PO SCH ×2 (08:22→16:50)
[2018-04-30] MEDS: Calcium Carbonate 500 MG Tab.Chew PO SCH (08:22)
[2018-04-30] MEDS: Polyethylene Glycol 3350 Powder 17 GM Packet PO SCH (08:22)
[2018-04-30] MEDS: Docusate Sodium 100 MG Cap PO SCH (08:22)
[2018-04-30] MEDS: Cholecalciferol (Vitamin D3) 1,000 Unit Tab PO SCH (08:22)
[2018-04-30] MEDS: DSS PO SCH (08:25)
[2018-04-30] MEDS: IRON FUMARATE PO SCH (08:25)
[2018-04-30] MEDS: [UNRECOGNIZED DRUG - OTHER] PO SCH (08:25)
[2018-04-30] MEDS: Losartan 50 MG Tab PO SCH (08:26)
[2018-04-30] MEDS: Potassium Chloride 8 MEQ Tab.ER PO SCH ×2 (08:37→21:05)
[2018-04-30] MEDS ORDERED: Clindamycin Phosphate in D5W 600 MG in Premix Bag 50 BAG IV SCH ×2 (13:30)
[2018-04-30] MEDS ORDERED: Levofloxacin 250 MG Tab PO SCH (14:00)
[2018-04-30] MEDS: Enoxaparin 40 MG/0.4 ML Syringe SUBCUT SCH (16:49)
[2018-04-30] MEDS: Clindamycin Phosphate in D5W 600 MG in Premix Bag 50 BAG IV SCH ×2 (18:47)
[2018-05-01] MEDS: Clindamycin Phosphate in D5W 600 MG in Premix Bag 50 BAG IV SCH ×4 (00:57→07:05)
[2018-05-01] MEDS: HYDROmorphone 2 MG/ML SDV IVPUSH PRN ×5 (01:04→20:57)
[2018-05-01] MEDS: Gabapentin 300 MG Cap PO SCH ×3 (06:43→21:16)
[2018-05-01] MEDS: Omeprazole 20 MG Cap.CR PO SCH (06:43)
[2018-05-01] MEDS: Nystatin Topical Powder 15 GM Bottle TOP SCH ×3 (06:43→21:15)
[2018-05-01 06:44] LABS: CHLORIDE,CL 102 mmol/L (98-107); SODIUM,NA 135 mmol/L (136-148)
[2018-05-01] MEDS: predniSONE 5 MG Tab PO SCH ×2 (08:14→16:11)
[2018-05-01] MEDS: Docusate Sodium 100 MG Cap PO SCH (08:22)
[2018-05-01] MEDS: Cholecalciferol (Vitamin D3) 1,000 Unit Tab PO SCH (08:22)
[2018-05-01] MEDS: Calcium Carbonate 500 MG Tab.Chew PO SCH (08:23)
[2018-05-01] MEDS: Polyethylene Glycol 3350 Powder 17 GM Packet PO SCH (08:24)
[2018-05-01] MEDS: Losartan 50 MG Tab PO SCH (08:26)
--- NOTE | 2018-05-01 08:59 | PCM.PN ---
- General Info Date of Service: 05/01/18 Subjective Update: Thang appears to be doing well, he was hypotensive but he is not showing any clinical signs of sepsis, he has no elevated temperature, he is in no acute distress aside from when he moves secondary to pain in his left hip. When asking him how he is doing he stated that he was doing fine. We are still awaiting on family's decision in terms of CODE STATUS and determination of whether or not we will be moving towards hospice care. Functional Status: Reports: Pain Controlled - Patient Data Vitals - Most Recent: Last Vital Signs Temp 36.9 C 05/01/18 08:00 Pulse 127 H 05/01/18 08:00 Resp 22 H 05/01/18 08:00 BP 89/60 L 05/01/18 08:26 Pulse Ox 92 L 05/01/18 08:00 Weight - Most Recent: 111.5 kg I&O - Last 24 Hours: Intake & Output 04/30/18 05/01/18 05/01/18 22:59 06:59 14:59 Intake Total 1460 250 50 Output Total 0 Balance 1460 250 50 Lab Results Last 24 Hours: Laboratory Results - last 24 hr 04/30/18 04/30/18 05/01/18 Range/Units 09:57 21:05 05:57 WBC 11.93 H (4.0-11.0) K/uL RBC 3.16 L (4.50-5.90) M/uL Hgb 8.3 L 8.5 L (13.0-17.0) g/dL Hct 26.4 L 27.3 L (38.0-50.0) % MCV 86.4 (80.0-98.0) fL MCH 26.9 L (27.0-32.0) pg MCHC 31.1 (31.0-37.0) g/dL RDW Std Deviation 56.8 (28.0-62.0) fl RDW Coeff of [place] 18 H (11.0-15.0) % Plt Count 373 (150-400) K/uL MPV 8.90 (7.40-12.00) fL Neut % (Auto) 81.0 H (48.0-80.0) % Lymph % (Auto) 3.7 L (16.0-40.0) % [place] % (Auto) 14.8 (0.0-15.0) % Eos % (Auto) 0.2 (0.0-7.0) % Baso % (Auto) 0.3 (0.0-1.5) % Neut # (Auto) 9.7 H (1.4-5.7) K/uL Lymph # (Auto) 0.4 L (0.6-2.4) K/uL [place] # (Auto) 1.8 H (0.0-0.8) K/uL Eos # (Auto) 0.0 (0.0-0.7) K/uL Baso # (Auto) 0.0 (0.0-0.1) K/uL Nucleated RBC % 0.9 /100WBC Nucleated RBCs # 0 K/uL Sodium (136-148) mmol/L Potassium (3.5-5.1) mmol/L Chloride (98-107) mmol/L Carbon Dioxide (21.0-32.0) mmol/L BUN (7.0-18.0) mg/dL Creatinine (0.8-1.3) mg/dL Est Cr Clr Drug Dosing mL/min Estimated GFR (MDRD) ml/min Glucose (74-106) mg/dL Calcium (8.5-10.1) mg/dL Total Bilirubin (0.2-1.0) mg/dL AST (15-37) IU/L ALT (14-63) IU/L Alkaline Phosphatase (46-116) U/L Total Protein (6.4-8.2) g/dL Albumin (3.4-5.0) g/dL Globulin (2.0-3.5) g/dL Albumin/Globulin Ratio (1.3-2.8) Blood Type A POSITIVE Antibody Screen NEGATIVE Crossmatch See Detail 05/01/18 Range/Units 05:57 WBC (4.0-11.0) K/uL RBC (4.50-5.90) M/uL Hgb (13.0-17.0) g/dL Hct (38.0-50.0) % MCV (80.0-98.0) fL MCH (27.0-32.0) pg MCHC (31.0-37.0) g/dL RDW Std Deviation (28.0-62.0) fl RDW Coeff of [place] (11.0-15.0) % Plt Count (150-400) K/uL MPV (7.40-12.00) fL Neut % (Auto) (48.0-80.0) % Lymph % (Auto) (16.0-40.0) % [place] % (Auto) (0.0-15.0) % Eos % (Auto) (0.0-7.0) % Baso % (Auto) (0.0-1.5) % Neut # (Auto) (1.4-5.7) K/uL Lymph # (Auto) (0.6-2.4) K/uL [place] # (Auto) (0.0-0.8) K/uL Eos # (Auto) (0.0-0.7) K/uL Baso # (Auto) (0.0-0.1) K/uL Nucleated RBC % /100WBC Nucleated RBCs # K/uL Sodium 135 L (136-148) mmol/L Potassium 5.4 H (3.5-5.1) mmol/L Chloride 102 (98-107) mmol/L Carbon Dioxide 27.3 (21.0-32.0) mmol/L BUN 27 H (7.0-18.0) mg/dL Creatinine 0.9 (0.8-1.3) mg/dL Est Cr Clr Drug Dosing 85.10 mL/min Estimated GFR (MDRD) > 60.0 ml/min Glucose 126 H (74-106) mg/dL Calcium 9.1 (8.5-10.1) mg/dL Total Bilirubin 1.1 H (0.2-1.0) mg/dL AST 121 H (15-37) IU/L ALT 13 L (14-63) IU/L Alkaline Phosphatase 440 H (46-116) U/L Total Protein 6.0 L (6.4-8.2) g/dL Albumin 2.2 L (3.4-5.0) g/dL Globulin 3.8 H (2.0-3.5) g/dL Albumin/Globulin Ratio 0.6 L (1.3-2.8) Blood Type Antibody Screen Crossmatch [place] Results Last 24 Hours: Microbiology 04/29/18 00:30 Urine Culture - Final Urine, Clean Catch No Growth 04/28/18 16:25 Wound Culture - Final Hip, Left Pseudomonas Aeruginosa Staphylococcus Aureus 04/28/18 16:40 Aerobic Blood Culture - Preliminary Blood - Venous NO GROWTH AFTER 2 DAYS Anaerobic Blood Culture - Preliminary NO GROWTH AFTER 2 DAYS 04/28/18 16:30 Aerobic Blood Culture - Preliminary Blood NO GROWTH AFTER 2 DAYS Anaerobic Blood Culture - Preliminary NO GROWTH AFTER 2 DAYS Med Orders - Current: Current Medications Albuterol (Ventolin Hfa) 8 gm INH Q6HRRT PRN PRN Reason: Wheezing Calcium Carbonate/Glycine (Tums) 1,000 mg PO DAILY [facility] Last Admin: 05/01/18 08:23 Dose: 1,000 mg Cholecalciferol (Vitamin D3) 3,000 units PO DAILY [facility] Last Admin: 05/01/18 08:22 Dose: 3,000 units Docusate Sodium (Colace) 100 mg PO DAILY [facility] Last Admin: 05/01/18 08:22 Dose: 100 mg Enoxaparin Sodium (Lovenox) 40 mg SUBCUT Q24H [facility] Last Admin: 04/30/18 16:49 Dose: 40 mg Fentanyl (Duragesic) 25 mcg TOP Q72H [facility] Last Admin: 05/01/18 08:16 Dose: 25 mcg Gabapentin (Neurontin) 300 mg PO TID [facility] Last Admin: 05/01/18 06:43 Dose: 300 mg Hydromorphone HCl (Dilaudid) 2 mg IVPUSH Q4H PRN PRN Reason: Pain Last Admin: 05/01/18 06:27 Dose: 2 mg Levofloxacin/Dextrose 750 mg/ (Premix) 150 mls @ 100 mls/hr IV Q24H [facility] Losartan Potassium (Cozaar) 100 mg PO DAILY [facility] Last Admin: 05/01/18 08:26 Dose: Not Given Nystatin (Nystop) 0 gm TOP TID [facility] Last Admin: 05/01/18 06:43 Dose: 1 applic Omeprazole (Omeprazole) 20 mg PO ACBREAKFAST [facility] Last Admin: 05/01/18 06:43 Dose: 20 mg Ondansetron HCl (Zofran) 4 mg IVPUSH Q4H PRN PRN Reason: Nausea/Vomiting Last Admin: 05/01/18 06:32 Dose: 4 mg [id number]/Iron Fumarate /Fa/Dss [ 19 Tablet] 1 Tab 1 each PO DAILY [facility] Last Admin: 04/30/18 08:25 Dose: Not Given Polyethylene Glycol (Miralax) 17 gm PO DAILY [facility] Last Admin: 05/01/18 08:24 Dose: 17 gm Potassium Chloride (Klor-Con 8) 8 meq PO BID [facility] Last Admin: 04/30/18 21:05 Dose: 8 meq Prednisone (Prednisone) 5 mg PO BIDMEALS [facility] Last Admin: 05/01/18 08:14 Dose: 5 mg Prochlorperazine Maleate (Compazine) 10 mg PO Q6H PRN PRN Reason: Nausea Discontinued Medications Heparin Sodium (Porcine) (Heparin Lock Flush 100 Units/Ml) 500 units FLUSH ONETIME ONE Stop: 04/28/18 14:28 Last Admin: 04/28/18 15:40 Dose: 500 units Vancomycin HCl 1,250 mg/ (Sodium Chloride) 250 mls @ 166.667 mls/hr IV Q8H [facility] Last Admin: 04/30/18 08:37 Dose: 166 mls/hr Clindamycin Phosphate 600 mg/ (Premix) 50 mls @ 100 mls/hr IV Q6H [facility] Last Admin: 04/30/18 13:56 Dose: Not Given Clindamycin Phosphate 600 mg/ (Premix) 50 mls @ 100 mls/hr IV Q6H [facility] Last Admin: 05/01/18 07:05 Dose: 100 mls/hr Vancomycin HCl (Pharmacy To Dose - Vancomycin) 1 dose .XX ASDIRECTED [facility] - Exam Quality Assessment: Supplemental Oxygen General: Alert, Oriented, Mild Distress HEENT: Pupils Equal, Pupils Reactive, EOMI, Mucous Membr. Moist/[place] Neck: Supple Lungs: Clear to Auscultation, Normal Respiratory Effort Cardiovascular: Regular Rate, Regular Rhythm GI/Abdominal Exam: Normal Bowel Sounds, Soft, Non-Tender, No Organomegaly Extremities: Leg Pain, Limited Range of Motion (Left femur wound continues to have some exudative drainage, the open wound does not appear to be enlarging it is significantly painful. ) Skin: Warm, Dry, Intact Wound/Incisions: Dressing Dry and Intact, Drainage, Erythema Improving, Decubitis Neurological: No New Focal Deficit Psy/Mental Status: Alert, Normal Affect, Normal Mood - Problem List Review Problem List Initiated/Reviewed/Updated: Yes - My Orders Last 24 Hours: My Active Orders 05/01/18 09:00 Levofloxacin/Dextrose 5%-Water [Levaquin in D5W 750 MG/150 ML] 750 mg Premix Bag 1 bag IV Q24H - Plan Plan:: 1. Intractable Pain secondary to prostate cancer and mets to the bone- Continue working on pain control with fentanyl patch and Dilaudid. Hospice was consulted to help with pain control and goals of care. Case management is working on placement. He is currently applying for [place] medicaid. [facility] this med[facility] before he would be accepted there. There is a meeting scheduled on Wednesday to address this. Edema. Patient required quite a lot of Dilaudid up to 6 doses we will continue to monitor to see how his pain control is today 2. Left greater trochanter wound growing S. Aurues as well as Pseudomonas, sensitive to levofloxacin- Patient was switched over to clindamycin yesterday however his temperature now is also growing Pseudomonas and Levaquin is a better option as it is sensitive for both organisms that have grown from the wound site. Continue to watch the leukocytosis, it has elevated from yesterday to today but that is likely due to the fact that his Pseudomonas was not being treated by the clindamycin. We shall reassess in the a.m. and see how he responds to the Levaquin. Also place an order for a CT of the left leg and we shall see what the infectious process appears to be doing as there may be the possibility that the family will want him transferred to a higher level of care. 3. Chronic normocytic anemia-patient's hemoglobin improved secondary to the 2 units of RBC 4. PMH- asthma, HTN, GERD, RA- continue home medications. Code status was discussed with patient and family. Currently the patient is full code. Family has it to make a decision on the CODE STATUS. And as far as transfer to a higher level of care family wants to wait to see what the response is to the antibiotics. We shall reassess in the a.m. and discussed with family at that time.
[2018-05-01] MEDS ORDERED: fentaNYL 25 MCG/HR Transdermal Patch TOP SCH (09:00)
[2018-05-01] MEDS: Potassium Chloride 8 MEQ Tab.ER PO SCH (09:45)
[2018-05-01] MEDS: Levofloxacin/Dextrose 5%-Water 750 MG in Premix Bag 1 BAG IV SCH (09:46)
[2018-05-01] MEDS: DSS PO SCH (10:10)
[2018-05-01] MEDS: IRON FUMARATE PO SCH (10:10)
[2018-05-01] MEDS: [UNRECOGNIZED DRUG - OTHER] PO SCH (10:10)
[2018-05-01] MEDS: Enoxaparin 40 MG/0.4 ML Syringe SUBCUT SCH (16:11)
[2018-05-02] MEDS: HYDROmorphone 2 MG/ML SDV IVPUSH PRN ×4 (06:52→23:13)
[2018-05-02] MEDS: Omeprazole 20 MG Cap.CR PO SCH (06:52)
[2018-05-02] MEDS: Nystatin Topical Powder 15 GM Bottle TOP SCH ×3 (06:52→22:52)
[2018-05-02] MEDS: Gabapentin 300 MG Cap PO SCH ×3 (06:52→22:52)
[2018-05-02 07:56] LABS: CHLORIDE,CL 101 mmol/L (98-107); SODIUM,NA 134 mmol/L (136-148)
--- NOTE | 2018-05-02 08:54 | CT ---
EXAMINATION: CT left femur without contrast HISTORY: Assess for tumor versus infection COMPARISON: Radiographs dated 04/22/2018 TECHNIQUE: Axial CT images obtained through the left femur without contrast. Coronal and sagittal rec onstructions obtained. FINDINGS: There is an intramedullary juany with interlocking femoral neck component traversing a mid le ft femur fracture. The osseous structures of the left femur demonstrates an extensive permeative appe arance. There is also a vertical fracture involving the medial femoral condyle extending from the int ercondylar notch to the metaphysis along the medial cortex. There is also a fracture of the inferior left pubic ramus. There is extensive soft tissue extension into the quadriceps musculature measuring at least 11 cm. Popliteal lymphadenopathy is also noted. Moderate generalized soft tissue swelling. T he large left gluteal mass is again noted. There is left iliac lymphadenopathy. IMPRESSION: 1. Extensive osseous metastatic disease with several pathologic fractures at the distal femur, mid fe mur, left inferior pubic ramus. 2. There is soft tissue extension of the metastatic process involving a good portion of the quadricep s muscles in the left gluteal region. 3. Left popliteal, inguinal, and iliac lymphadenopathy.
--- NOTE | 2018-05-02 08:54 | PCM.PN ---
- General Info Date of Service: 05/02/18 Subjective Update: Patient is a 62-year-old male who was admitted for intractable pain due to prostate cancer and bone mets. The patient's pain has been his left hip and leg. He is consistently requiring 5-6 doses of Dilaudid a day on top of his fentanyl patch. Patient and family did decide to switch code status to DNR/ DNI. There is still a possibility to go on hospice but the patient/family want to know if there is anything else that can be done for the leg, surgery serna. The patient has been eating and drinking without difficulty. He denies any chest pain, or shortness of breath. - Review of Systems General: Reports: No Symptoms HEENT: Reports: No Symptoms Pulmonary: Reports: No Symptoms Cardiovascular: Reports: No Symptoms Gastrointestinal: Reports: No Symptoms Skin: Reports: Other (wound left hip, left buttock) Neurological: Reports: No Symptoms Psychiatric: Reports: No Symptoms - Patient Data Vitals - Most Recent: Last Vital Signs Temp 97.7 F 05/02/18 03:00 Pulse 104 H 05/02/18 03:00 Resp 18 05/02/18 03:00 BP 88/56 L 05/02/18 03:00 Pulse Ox 97 05/02/18 03:00 Weight - Most Recent: 111.5 kg I&O - Last 24 Hours: Intake & Output 05/01/18 05/02/18 05/02/18 22:59 06:59 14:59 Intake Total 940 340 Output Total 341 0 Balance 599 340 Lab Results Last 24 Hours: Laboratory Results - last 24 hr 05/02/18 05/02/18 Range/Units 07:20 07:20 WBC 11.56 H (4.0-11.0) K/uL RBC 2.85 L (4.50-5.90) M/uL Hgb 7.9 L (13.0-17.0) g/dL Hct 25.0 L (38.0-50.0) % MCV 87.7 (80.0-98.0) fL MCH 27.7 (27.0-32.0) pg MCHC 31.6 (31.0-37.0) g/dL RDW Std Deviation 59.4 (28.0-62.0) fl RDW Coeff of [place] 19 H (11.0-15.0) % Plt Count 320 (150-400) K/uL MPV 8.60 (7.40-12.00) fL Add Manual Diff YES Neutrophils % (Manual) 80 (48.0-80.0) % Band Neutrophils % 6 % Lymphocytes % (Manual) 7 L (16.0-40.0) % Monocytes % (Manual) 7 (0.0-15.0) % Nucleated RBC % 0.5 /100WBC Absolute Seg Neuts 9.2 H (1.4-5.7) Band Neutrophils # 0.7 Lymphocytes # (Manual) 0.8 (0.6-2.4) Monocytes # (Manual) 0.8 (0.0-0.8) Nucleated RBCs # 0 K/uL Sodium 134 L (136-148) mmol/L Potassium 5.6 H (3.5-5.1) mmol/L Chloride 101 (98-107) mmol/L Carbon Dioxide 26.5 (21.0-32.0) mmol/L BUN 39 H (7.0-18.0) mg/dL Creatinine 1.0 (0.8-1.3) mg/dL Est Cr Clr Drug Dosing 76.59 mL/min Estimated GFR (MDRD) > 60.0 ml/min Glucose 124 H (74-106) mg/dL Calcium 9.1 (8.5-10.1) mg/dL Total Bilirubin 0.7 (0.2-1.0) mg/dL AST 152 H (15-37) IU/L ALT 28 (14-63) IU/L Alkaline Phosphatase 344 H (46-116) U/L Total Protein 5.8 L (6.4-8.2) g/dL Albumin 2.0 L (3.4-5.0) g/dL Globulin 3.8 H (2.0-3.5) g/dL Albumin/Globulin Ratio 0.5 L (1.3-2.8) [place] Results Last 24 Hours: Microbiology 04/28/18 16:40 Aerobic Blood Culture - Preliminary Blood - Venous NO GROWTH AFTER 3 DAYS Anaerobic Blood Culture - Preliminary NO GROWTH AFTER 3 DAYS 04/28/18 16:30 Aerobic Blood Culture - Preliminary Blood NO GROWTH AFTER 3 DAYS Anaerobic Blood Culture - Preliminary NO GROWTH AFTER 3 DAYS 04/29/18 00:30 Urine Culture - Final Urine, Clean Catch No Growth 04/28/18 16:25 Wound Culture - Final Hip, Left Pseudomonas Aeruginosa Staphylococcus Aureus Med Orders - Current: Current Medications Albuterol (Ventolin Hfa) 8 gm INH Q6HRRT PRN PRN Reason: Wheezing Calcium Carbonate/Glycine (Tums) 1,000 mg PO DAILY [facility] Last Admin: 05/01/18 08:23 Dose: 1,000 mg Cholecalciferol (Vitamin D3) 3,000 units PO DAILY [facility] Last Admin: 05/01/18 08:22 Dose: 3,000 units Docusate Sodium (Colace) 100 mg PO DAILY [facility] Last Admin: 05/01/18 08:22 Dose: 100 mg Enoxaparin Sodium (Lovenox) 40 mg SUBCUT Q24H [facility] Last Admin: 05/01/18 16:11 Dose: 40 mg Fentanyl (Duragesic) 25 mcg TOP Q72H [facility] Last Admin: 05/01/18 08:16 Dose: 25 mcg Gabapentin (Neurontin) 300 mg PO TID [facility] Last Admin: 05/02/18 06:52 Dose: 300 mg Hydromorphone HCl (Dilaudid) 2 mg IVPUSH Q4H PRN PRN Reason: Pain Last Admin: 05/02/18 06:52 Dose: 2 mg Levofloxacin/Dextrose 750 mg/ (Premix) 150 mls @ 100 mls/hr IV Q24H [facility] Last Admin: 05/01/18 09:46 Dose: 100 mls/hr Losartan Potassium (Cozaar) 100 mg PO DAILY [facility] Last Admin: 05/01/18 08:26 Dose: Not Given Nystatin (Nystop) 0 gm TOP TID [facility] Last Admin: 05/02/18 06:52 Dose: 1 applic Omeprazole (Omeprazole) 20 mg PO ACBREAKFAST [facility] Last Admin: 05/02/18 06:52 Dose: 20 mg Ondansetron HCl (Zofran) 4 mg IVPUSH Q4H PRN PRN Reason: Nausea/Vomiting Last Admin: 05/01/18 06:32 Dose: 4 mg Aap841/Iron Fumarate /Fa/Dss [ 19 Tablet] 1 Tab 1 each PO DAILY [facility] Last Admin: 05/01/18 10:10 Dose: Not Given Polyethylene Glycol (Miralax) 17 gm PO DAILY [facility] Last Admin: 05/01/18 08:24 Dose: 17 gm Prednisone (Prednisone) 5 mg PO BIDMEALS [facility] Last Admin: 05/01/18 16:11 Dose: 5 mg Prochlorperazine Maleate (Compazine) 10 mg PO Q6H PRN PRN Reason: Nausea Discontinued Medications Heparin Sodium (Porcine) (Heparin Lock Flush 100 Units/Ml) 500 units FLUSH ONETIME ONE Stop: 04/28/18 14:28 Last Admin: 04/28/18 15:40 Dose: 500 units Vancomycin HCl 1,250 mg/ (Sodium Chloride) 250 mls @ 166.667 mls/hr IV Q8H [facility] Last Admin: 04/30/18 08:37 Dose: 166 mls/hr Clindamycin Phosphate 600 mg/ (Premix) 50 mls @ 100 mls/hr IV Q6H [facility] Last Admin: 04/30/18 13:56 Dose: Not Given Clindamycin Phosphate 600 mg/ (Premix) 50 mls @ 100 mls/hr IV Q6H [facility] Last Admin: 05/01/18 07:05 Dose: 100 mls/hr Potassium Chloride (Klor-Con 8) 8 meq PO BID [facility] Last Admin: 05/01/18 09:45 Dose: 8 meq Vancomycin HCl (Pharmacy To Dose - Vancomycin) 1 dose .XX ASDIRECTED [facility] - Exam General: Alert, Oriented, Cooperative Lungs: Clear to Auscultation, Normal Respiratory Effort Cardiovascular: Regular Rhythm, Tachycardia GI/Abdominal Exam: Normal Bowel Sounds, Soft, Non-Tender Extremities: Pedal Edema (L>R), Leg Pain Wound/Incisions: Drainage (left hip wound) Psy/Mental Status: Alert, Normal Mood - Problem List Review Problem List Initiated/Reviewed/Updated: Yes - My Orders Last 24 Hours: My Active Orders 05/01/18 09:00 fentaNYL [Duragesic] 25 mcg TOP Q72H - Plan Plan:: 1. Intractable Pain secondary to prostate cancer and mets to the bone- Continue working on pain control with fentanyl patch and Dilaudid. Because he is requiring so many doses of Diluadid, we will increases his fentanyl patch from 25 to 50 mcg topical every 72 hours. Hospice was consulted to help with pain control and goals of care. Case management is working on placement. He is currently applying for [place] medicaid. [facility] needs this medicaid before he would be accepted there. Patient did switch his code status to DNR/DNI. CT of the left hip and leg was completed and showed mets and pathologic fractures. Ortho consult was placed, Dr. Iglesias will see him sometime today regarding any surgical options for the left hip and leg. 2. Left greater trochanter wound growing S. Aurues as well as Pseudomonas, sensitive to levofloxacin- Patient was switched over to Levaquin yesterday to cover both organisms growing. White count did not increase today and no sign of fever. CT of the leg was originally ordered with contrast to evaluate the infection but radiology was unable to give contrast because of his port. 3. Chronic normocytic anemia s/p transfusion- continue to monitor H/H 4. PMH- asthma, HTN, GERD, RA- continue home medications. Spoke to patient and family today about status. He did change his code from full code to DNR/DNI, they want to continue with antibiotics and get an ortho consult to see if there is anything to do for his left leg and hip. If no reasonable surgical options most likely they will go with hospice ideally with placement in custodial.
[2018-05-02] MEDS: Docusate Sodium 100 MG Cap PO SCH (09:14)
[2018-05-02] MEDS: Cholecalciferol (Vitamin D3) 1,000 Unit Tab PO SCH (09:14)
[2018-05-02] MEDS: Losartan 50 MG Tab PO SCH (09:15)
[2018-05-02] MEDS: predniSONE 5 MG Tab PO SCH ×2 (09:15→15:59)
[2018-05-02] MEDS: Levofloxacin/Dextrose 5%-Water 750 MG in Premix Bag 1 BAG IV SCH (09:19)
[2018-05-02] MEDS: Calcium Carbonate 500 MG Tab.Chew PO SCH (09:19)
[2018-05-02] MEDS: Polyethylene Glycol 3350 Powder 17 GM Packet PO SCH (09:23)
[2018-05-02] MEDS: IRON FUMARATE PO SCH (10:00)
[2018-05-02] MEDS: [UNRECOGNIZED DRUG - OTHER] PO SCH (10:00)
[2018-05-02] MEDS: DSS PO SCH (10:00)
[2018-05-02] MEDS: fentaNYL 50 MCG/HR Transdermal Patch TOP SCH ×2 (11:19→20:11)
--- NOTE | 2018-05-02 12:53 | PCM.CONS ---
<Jerod Rockwell - Last Filed: 05/02/18 13:35> H&P History of Present Illness - General Date of Service: 05/02/18 Admit Problem/Dx: Chief complaint/Reason for consult: Left hip pain in the setting of prostate cancer with bone mets. Source of Information: Patient, EMS Notes Reviewed, Old Records, RN History Limitations: Reports: Physical Impairment - History of Present Illness Initial Comments - Free Text/Narative: Patient is 62 year old male originally admitted 04/28 for intractable pain secondary to prostate carcinoma w/ bone metastases. His pain is located most severely in the left hip and femur. It limits his mobility and he has not been ambulatory for several months. The patient reports that he had an intramedullary juany placed into the left femur for a pathologic fracture about 1.5 years ago. More recently, Mr Champagne has been receiving palliative radiation therapy to the left gluteal and hip region, where there is CT evidence of some tissue metastasis and extensive osteolytic bony involvement. Family and patient recently made the decision to be DNR/DNI, and discussions regarding transitioning to hospice are in process with the primary team. Ortho has been consulted today to determine if surgical intervention on the left lower extremity is indicated. Onset of Symptoms: Reports: Gradual Location: Reports: Lower Extremity, Left Worsens with: Reports: Movement L hip/ L leg Pain Score (Numeric/FACES): 7 - Related Data Allergies/Adverse Reactions: Allergies Allergy/AdvReac Type Severity Reaction Status Date / Time lisinopril Allergy Cough Verified 04/22/18 13:20 methocarbamol Allergy Muscle Verified 04/22/18 13:20 Weakness Home Medications: Home Meds Calcium Carbonate [Oyster Shell Calcium] 1,250 mg PO DAILY 04/22/18 [History] Docusate Sodium 100 mg PO DAILY 04/22/18 [History] HYDROmorphone [Dilaudid] 4 mg PO Q4H PRN 04/22/18 [History] Losartan [Cozaar] 100 mg PO DAILY 04/22/18 [History] Naproxen [Naprosyn] 500 mg PO BID PRN 04/22/18 [History] Omeprazole 20 mg PO ACBREAKFAST 04/22/18 [History] Ondansetron [Zofran] 8 mg PO TID PRN 04/22/18 [History] [id number]/Iron Fumarate/FA/DSS [ 19 Tablet] 1 tab PO DAILY 04/22/18 [ History] Potassium Chloride [Klor-Con 8] 8 meq PO BID 04/22/18 [History] Prochlorperazine [Compazine] 10 mg PO Q6H PRN 04/22/18 [History] predniSONE [Prednisone] 5 mg PO BID 04/22/18 [History] Ascorbic Acid [Vitamin C] 1,000 mg PO DAILY 04/28/18 [History] Aspirin 325 mg PO DAILY 04/28/18 [History] Cholecalciferol (Vitamin D3) [Vitamin D3] 15,000 unit PO DAILY 04/28/18 [History ] Polyethylene Glycol 3350 [MiraLAX] 17 gm PO DAILY PRN 04/28/18 [History] Spironolactone [Aldactone] 25 mg PO DAILY 04/28/18 [History] fentaNYL [Duragesic] 12 mcg TD Q72H 04/28/18 [History] oxyCODONE 5 mg PO Q4HR PRN 04/28/18 [History] Past Medical History HEENT History: Reports: None Cardiovascular History: Reports: Heart Murmur, Hypertension Respiratory History: Reports: Asthma Gastrointestinal History: Reports: GERD, PUD Genitourinary History: Reports: Prostate Disorder Other Genitourinary History: prostate cancer Musculoskeletal History: Reports: Arthritis, RA Neurological History: Reports: None Psychiatric History: Reports: Depression Endocrine/Metabolic History: Reports: None Hematologic History: Reports: Anemia Immunologic History: Reports: None Oncologic (Cancer) History: Reports: Bone, Prostate Dermatologic History: Reports: Decubitus Ulcer - Infectious Disease History Infectious Disease History: Reports: Mumps - Past Surgical History Head Surgeries/Procedures: Reports: None HEENT Surgical History: Reports: None Cardiovascular Surgical History: Reports: None Respiratory Surgical History: Reports: None GI Surgical History: Reports: None Male Surgical History: Reports: Prostatectomy Endocrine Surgical History: Reports: None Neurological Surgical History: Reports: None Musculoskeletal Surgical History: Reports: Hip Replacement Oncologic Surgical History: Reports: None Dermatological Surgical History: Reports: None Social & Family History - Family History Family Medical History: Noncontributory - Tobacco Use Smoking Status *Q: Former Smoker Years of Tobacco use: 40 Used Tobacco, but Quit: Yes Month/Year Tobacco Last Used: over 1 yr ago Second Hand Smoke Exposure: No - Caffeine Use Caffeine Use: Reports: None - Recreational Drug Use Recreational Drug Use: No H&P Review of Systems - Review of Systems: Review Of Systems: See Below Free Text/Narrative: . General: Reports: No Symptoms HEENT: Reports: No Symptoms Pulmonary: Reports: Shortness of Breath Cardiovascular: Reports: No Symptoms Gastrointestinal: Reports: No Symptoms Genitourinary: Reports: No Symptoms Musculoskeletal: Reports: Leg Pain Skin: Reports: No Symptoms, Wound (left trochanter) Psychiatric: Reports: No Symptoms Neurological: Reports: Confusion Hematologic/Lymphatic: Reports: Anemia Immunologic: Reports: No Symptoms Review of Systems Comment:: . Exam - Exam Exam: See Below - Vital Signs Vital Signs: Last Vital Signs Temp 98.0 F 05/02/18 12:00 Pulse 107 H 05/02/18 12:00 Resp 20 05/02/18 12:00 BP 101/63 05/02/18 12:00 Pulse Ox 95 05/02/18 12:00 Weight: 111.5 kg - Exam General: Alert, Oriented HEENT: Mucosa Moist & [place] Neck: Supple Lungs: Normal Respiratory Effort Cardiovascular: Regular Rate, Regular Rhythm GI/Abdominal Exam: Soft Extremities: Normal Inspection, Pedal Edema, Other (rotation of the left hip is limited by pain. He has intact distal motor and sensory function. Significant pedal edema of the left foot. Non-palpable pedal pulses of the left foot, but the skin is warm. At the skin overlying the left greater trochanter there is a chronically-appearing wound that actually protrudes somewhat from the skin. It is not malodorous. The RLE is normal, with palpable DP pulse. ) Peripheral Pulses: 0: Posterior Tibial (L), Dorsalis Pedis (L), 1+: Posterior Tibial (R), 2+: Dorsalis Pedis (R) Skin: Warm, Dry, Intact Neuro Extensive - Mental Status: Alert, Oriented x3, Normal Mood/Affect Psychiatric: Alert, Normal Affect, Normal Mood - Patient Data Lab Results Last 24 hrs: Laboratory Results - last 24 hr 05/02/18 05/02/18 Range/Units 07:20 07:20 WBC 11.56 H (4.0-11.0) K/uL RBC 2.85 L (4.50-5.90) M/uL Hgb 7.9 L (13.0-17.0) g/dL Hct 25.0 L (38.0-50.0) % MCV 87.7 (80.0-98.0) fL MCH 27.7 (27.0-32.0) pg MCHC 31.6 (31.0-37.0) g/dL RDW Std Deviation 59.4 (28.0-62.0) fl RDW Coeff of [place] 19 H (11.0-15.0) % Plt Count 320 (150-400) K/uL MPV 8.60 (7.40-12.00) fL Add Manual Diff YES Neutrophils % (Manual) 80 (48.0-80.0) % Band Neutrophils % 6 % Lymphocytes % (Manual) 7 L (16.0-40.0) % Monocytes % (Manual) 7 (0.0-15.0) % Nucleated RBC % 0.5 /100WBC Absolute Seg Neuts 9.2 H (1.4-5.7) Band Neutrophils # 0.7 Lymphocytes # (Manual) 0.8 (0.6-2.4) Monocytes # (Manual) 0.8 (0.0-0.8) Nucleated RBCs # 0 K/uL Sodium 134 L (136-148) mmol/L Potassium 5.6 H (3.5-5.1) mmol/L Chloride 101 (98-107) mmol/L Carbon Dioxide 26.5 (21.0-32.0) mmol/L BUN 39 H (7.0-18.0) mg/dL Creatinine 1.0 (0.8-1.3) mg/dL Est Cr Clr Drug Dosing 76.59 mL/min Estimated GFR (MDRD) > 60.0 ml/min Glucose 124 H (74-106) mg/dL Calcium 9.1 (8.5-10.1) mg/dL Total Bilirubin 0.7 (0.2-1.0) mg/dL AST 152 H (15-37) IU/L ALT 28 (14-63) IU/L Alkaline Phosphatase 344 H (46-116) U/L Total Protein 5.8 L (6.4-8.2) g/dL Albumin 2.0 L (3.4-5.0) g/dL Globulin 3.8 H (2.0-3.5) g/dL Albumin/Globulin Ratio 0.5 L (1.3-2.8) Result Diagrams: 05/02/18 07:20 05/02/18 07:20 Nahun Results Last 24 hrs: Microbiology 04/28/18 16:40 Aerobic Blood Culture - Preliminary Blood - Venous NO GROWTH AFTER 3 DAYS Anaerobic Blood Culture - Preliminary NO GROWTH AFTER 3 DAYS 04/28/18 16:30 Aerobic Blood Culture - Preliminary Blood NO GROWTH AFTER 3 DAYS Anaerobic Blood Culture - Preliminary NO GROWTH AFTER 3 DAYS Imaging Impressions Last 24 hrs: Non-contrast CT of the left lower extremity was reviewed. Evidence of significant lytic lesions throughout the left pelvis and left femur. Pathologic fractures of the distal and mid left femur and pathologic fracture of the left inferior ramus. Growing soft tissue mass in the left gluteus has the appearance of metastatic disease. Consult PN Assessment/Plan Procedures: Procedures 3-D RADIOTHERAPY PLAN (01/26/18) APPLICATON ON-BODY INJECTOR (03/09/18) ASSAY OF AMMONIA (04/22/18) ASSAY OF FREE TESTOSTERONE (05/20/16) ASSAY OF MAGNESIUM (11/18/16) ASSAY OF NATRIURETIC PEPTIDE (04/22/18) ASSAY OF PSA TOTAL (03/09/18) ASSAY OF TOTAL TESTOSTERONE (05/20/16) ASSAY OF TROPONIN QUANT (04/22/18) BLOOD CULTURE FOR BACTERIA (04/22/18) BLOOD GASES ANY COMBINATION (04/22/18) BONE IMAGING WHOLE BODY (03/17/18) CHEMO HORMON ANTINEOPL SQ/IM (01/26/18) CHEMO IV INFUSION 1 HR (03/09/18) CHEST X-RAY 1 VIEW FRONTAL (06/10/17) COMPLETE CBC W/AUTO DIFF WBC (04/22/18) COMPREHEN METABOLIC PANEL (04/22/18) CT ABD & PELV W/CONTRAST (03/17/18) CT THORAX W/DYE (03/17/18) DRAW BLOOD OFF VENOUS DEVICE (03/28/18) ELECTROCARDIOGRAM TRACING (04/22/18) EMERGENCY DEPT VISIT (04/22/18) EMERGENCY DEPT VISIT (03/17/18) EXTREMITY STUDY (04/22/18) FLUOROSCOPY <1 HR PHYS/QHP (06/10/17) GUIDANCE FOR RADIAJ TX DLVR (01/26/18) HYDRATION IV INFUSION INIT (04/22/18) INSERT TUNNELED CV CATH (06/10/17) MRI CHEST SPINE W/O & W/DYE (02/05/16) MRI LUMBAR SPINE W/O & W/DYE (02/14/16) MRI NECK SPINE W/O & W/DYE (02/05/16) OFFICE/OUTPATIENT VISIT EST (01/26/18) OFFICE/OUTPATIENT VISIT NEW (02/14/16) OFFICE/OUTPATIENT VISIT NEW (11/05/15) PROTHROMBIN TIME (04/22/18) RADIATION PHYSICS CONSULT (01/26/18) RADIATION THERAPY DOSE PLAN (01/26/18) RADIATION TREATMENT AID(S) (01/26/18) RADIATION TREATMENT DELIVERY (01/26/18) RADIOLOGY PORT IMAGES(S) (01/26/18) ROUTINE VENIPUNCTURE (04/22/18) SET RADIATION THERAPY FIELD (01/26/18) SPECIAL RADIATION DOSIMETRY (02/14/16) SPECIAL RADIATION TREATMENT (01/26/18) THER/PROPH/DIAG INJ SC/IM (01/26/18) TX/PRO/DX INJ NEW DRUG ADDON (03/09/18) TX/PROPH/DG ADDL SEQ IV INF (03/09/18) URINALYSIS AUTO W/SCOPE (04/22/18) URINE CULTURE/COLONY COUNT (04/22/18) VITAMIN D 25 HYDROXY (05/17/17) WITHDRAWAL OF ARTERIAL BLOOD (04/22/18) X-RAY EXAM CHEST 1 VIEW (04/22/18) X-RAY EXAM OF FEMUR 2/> (04/22/18) X-RAY EXAM OF HUMERUS (02/05/16) X-RAY EXAM OF KNEE 1 OR 2 (04/22/18) X-RAY EXAM OF LOWER LEG (02/05/16) X-RAY EXAM OF PELVIS (04/22/18) (1) Prostate cancer metastatic to bone SNOMED Code(s): 14769928 Code(s): C61 - MALIGNANT NEOPLASM OF PROSTATE; C79.51 - SECONDARY MALIGNANT NEOPLASM OF BONE Problem List Initiated/Reviewed/Updated: Yes Plan: ASSESSMENT Mr Fahad López is a 62 y/o male with prostate adenocarcinoma. He has metastatic disease in the left femur, pelvis, and soft tissues of the gluteal region. The lytic lesions and pathologic fractures are causing significant pain that is limiting his mobility and quality of life. Unfortunately the extent of his disease is beyond anything curable and he will not benefit from additional surgical treatment. RECOMMENDATIONS No surgical intervention is indicated. Recommend continuing cares with the goal of pain control and symptom relief. Transition to comfort cares when the patient and family are ready <Melissa Iglesias - Last Filed: 05/02/18 14:44> H&P History of Present Illness - General Admit Problem/Dx: Admission Diagnosis/Problem Admission Diagnosis/Problem Pain Past Medical History - Past Surgical History Musculoskeletal Surgical History: Reports: Hip Replacement (R hip hemiarthroplasty) Oncologic Surgical History: Reports: Biopsy of Breast Exam - Vital Signs Vital Signs: Last Vital Signs Temp 98.0 F 05/02/18 12:00 Pulse 107 H 05/02/18 12:00 Resp 20 05/02/18 12:00 BP 101/63 05/02/18 12:00 Pulse Ox 95 05/02/18 12:00 - Exam Extremities: Other - Patient Data Lab Results Last 24 hrs: Laboratory Results - last 24 hr 05/02/18 05/02/18 Range/Units 07:20 07:20 WBC 11.56 H (4.0-11.0) K/uL RBC 2.85 L (4.50-5.90) M/uL Hgb 7.9 L (13.0-17.0) g/dL Hct 25.0 L (38.0-50.0) % MCV 87.7 (80.0-98.0) fL MCH 27.7 (27.0-32.0) pg MCHC 31.6 (31.0-37.0) g/dL RDW Std Deviation 59.4 (28.0-62.0) fl RDW Coeff of [place] 19 H (11.0-15.0) % Plt Count 320 (150-400) K/uL MPV 8.60 (7.40-12.00) fL Add Manual Diff YES Neutrophils % (Manual) 80 (48.0-80.0) % Band Neutrophils % 6 % Lymphocytes % (Manual) 7 L (16.0-40.0) % Monocytes % (Manual) 7 (0.0-15.0) % Nucleated RBC % 0.5 /100WBC Absolute Seg Neuts 9.2 H (1.4-5.7) Band Neutrophils # 0.7 Lymphocytes # (Manual) 0.8 (0.6-2.4) Monocytes # (Manual) 0.8 (0.0-0.8) Nucleated RBCs # 0 K/uL Sodium 134 L (136-148) mmol/L Potassium 5.6 H (3.5-5.1) mmol/L Chloride 101 (98-107) mmol/L Carbon Dioxide 26.5 (21.0-32.0) mmol/L BUN 39 H (7.0-18.0) mg/dL Creatinine 1.0 (0.8-1.3) mg/dL Est Cr Clr Drug Dosing 76.59 mL/min Estimated GFR (MDRD) > 60.0 ml/min Glucose 124 H (74-106) mg/dL Calcium 9.1 (8.5-10.1) mg/dL Total Bilirubin 0.7 (0.2-1.0) mg/dL AST 152 H (15-37) IU/L ALT 28 (14-63) IU/L Alkaline Phosphatase 344 H (46-116) U/L Total Protein 5.8 L (6.4-8.2) g/dL Albumin 2.0 L (3.4-5.0) g/dL Globulin 3.8 H (2.0-3.5) g/dL Albumin/Globulin Ratio 0.5 L (1.3-2.8) Result Diagrams: 05/02/18 07:20 05/02/18 07:20 Nahun Results Last 24 hrs: Microbiology 04/28/18 16:40 Aerobic Blood Culture - Preliminary Blood - Venous NO GROWTH AFTER 3 DAYS Anaerobic Blood Culture - Preliminary NO GROWTH AFTER 3 DAYS 04/28/18 16:30 Aerobic Blood Culture - Preliminary Blood NO GROWTH AFTER 3 DAYS Anaerobic Blood Culture - Preliminary NO GROWTH AFTER 3 DAYS Imaging Impressions Last 24 hrs: Bone scan from March 17, 2018 was also reviewed. This does show extensive uptake within the spine, ribs, clavicles, humeri, cranium, pelvis, and lower extremities. This appears to have mildly increased in comparison to the previous exam. Faint uptake is noted within the kidneys. Consult PN Assessment/Plan Procedures: Procedures 3-D RADIOTHERAPY PLAN (01/26/18) APPLICATON ON-BODY INJECTOR (03/09/18) ASSAY OF AMMONIA (04/22/18) ASSAY OF FREE TESTOSTERONE (05/20/16) ASSAY OF MAGNESIUM (11/18/16) ASSAY OF NATRIURETIC PEPTIDE (04/22/18) ASSAY OF PSA TOTAL (03/09/18) ASSAY OF TOTAL TESTOSTERONE (05/20/16) ASSAY OF TROPONIN QUANT (04/22/18) BLOOD CULTURE FOR BACTERIA (04/22/18) BLOOD GASES ANY COMBINATION (04/22/18) BONE IMAGING WHOLE BODY (03/17/18) CHEMO HORMON ANTINEOPL SQ/IM (01/26/18) CHEMO IV INFUSION 1 HR (03/09/18) CHEST X-RAY 1 VIEW FRONTAL (06/10/17) COMPLETE CBC W/AUTO DIFF WBC (04/22/18) COMPREHEN METABOLIC PANEL (04/22/18) CT ABD & PELV W/CONTRAST (03/17/18) CT THORAX W/DYE (03/17/18) DRAW BLOOD OFF VENOUS DEVICE (03/28/18) ELECTROCARDIOGRAM TRACING (04/22/18) EMERGENCY DEPT VISIT (04/22/18) EMERGENCY DEPT VISIT (03/17/18) EXTREMITY STUDY (04/22/18) FLUOROSCOPY <1 HR PHYS/QHP (06/10/17) GUIDANCE FOR RADIAJ TX DLVR (01/26/18) HYDRATION IV INFUSION INIT (04/22/18) INSERT TUNNELED CV CATH (06/10/17) MRI CHEST SPINE W/O & W/DYE (02/05/16) MRI LUMBAR SPINE W/O & W/DYE (02/14/16) MRI NECK SPINE W/O & W/DYE (02/05/16) OFFICE/OUTPATIENT VISIT EST (01/26/18) OFFICE/OUTPATIENT VISIT NEW (02/14/16) OFFICE/OUTPATIENT VISIT NEW (11/05/15) PROTHROMBIN TIME (04/22/18) RADIATION PHYSICS CONSULT (01/26/18) RADIATION THERAPY DOSE PLAN (01/26/18) RADIATION TREATMENT AID(S) (01/26/18) RADIATION TREATMENT DELIVERY (01/26/18) RADIOLOGY PORT IMAGES(S) (01/26/18) ROUTINE VENIPUNCTURE (04/22/18) SET RADIATION THERAPY FIELD (01/26/18) SPECIAL RADIATION DOSIMETRY (02/14/16) SPECIAL RADIATION TREATMENT (01/26/18) THER/PROPH/DIAG INJ SC/IM (01/26/18) TX/PRO/DX INJ NEW DRUG ADDON (03/09/18) TX/PROPH/DG ADDL SEQ IV INF (03/09/18) URINALYSIS AUTO W/SCOPE (04/22/18) URINE CULTURE/COLONY COUNT (04/22/18) VITAMIN D 25 HYDROXY (05/17/17) WITHDRAWAL OF ARTERIAL BLOOD (04/22/18) X-RAY EXAM CHEST 1 VIEW (04/22/18) X-RAY EXAM OF FEMUR 2/> (04/22/18) X-RAY EXAM OF HUMERUS (02/05/16) X-RAY EXAM OF KNEE 1 OR 2 (04/22/18) X-RAY EXAM OF LOWER LEG (02/05/16) X-RAY EXAM OF PELVIS (04/22/18) Plan: 1430 Agree with the above note. Patient was seen and examined. Review of his past medical history along with recent CT scan shows extensive bony involvement from the metastatic prostate carcinoma, along with a substantial soft tissue component involving the quadriceps muscles in the gluteal region. There is evidence of a prior intramedullary juany in the left hip however there are multiple lucent lesions and pathologic fractures within the femur. There appears to be a fracture of the medial femoral condyle of the distal femur which is in acceptable alignment. I did discuss with the patient that at this point I would not recommend any further surgical intervention. The long-term goal would be adequate pain control and mobilization as tolerated. I feel that the soft tissue mass is from the tumor and would not recommend antibiotics for the lesion. Dressing changes prn. Further discussion of hospice can be discussed by the primary team. At this point no further orthopedic intervention is required. Please reconsult us if there are further questions or concerns. georgie
[2018-05-02] MEDS: Enoxaparin 40 MG/0.4 ML Syringe SUBCUT SCH (15:53)
[2018-05-02 17:23] LABS: CHLORIDE,CL 100 mmol/L (98-107); SODIUM,NA 132 mmol/L (136-148)
[2018-05-03] MEDS: HYDROmorphone 2 MG/ML SDV IVPUSH PRN ×6 (04:26→21:30)
[2018-05-03] MEDS: Nystatin Topical Powder 15 GM Bottle TOP SCH ×3 (06:13→22:00)
[2018-05-03] MEDS: Omeprazole 20 MG Cap.CR PO SCH ×2 (06:14→08:13)
[2018-05-03] MEDS: Gabapentin 300 MG Cap PO SCH ×3 (06:14→21:30)
[2018-05-03 06:36] LABS: CHLORIDE,CL 102 mmol/L (98-107); SODIUM,NA 134 mmol/L (136-148)
--- NOTE | 2018-05-03 07:51 | PCM.PN ---
- General Info Date of Service: 05/03/18 Subjective Update: The patient reports he is doing okay. He is still having pain in the leg. Slightly improved from yesterday. Yesterday, his fentanyl patch dose was increased. He required slightly less Dilaudid over the course of the day. Yesterday, Dr. Hogan, of ortho, evaluated him and did not think there were any surgical options for the patient's leg pain and condition. She recommended comfort care measures. Hospice spoke to the patient and his sister today and gave them some information to discuss. I went in later and the patient and family decided that he wants to remain DNR/DNI and go on hospice. Case management working on placement. - Review of Systems General: Reports: No Symptoms HEENT: Reports: No Symptoms Pulmonary: Reports: No Symptoms Cardiovascular: Reports: No Symptoms Gastrointestinal: Reports: No Symptoms Genitourinary: Reports: No Symptoms Musculoskeletal: Reports: Leg Pain Neurological: Reports: No Symptoms Psychiatric: Reports: No Symptoms - Patient Data Vitals - Most Recent: Last Vital Signs Temp 98.7 F 05/03/18 03:41 Pulse 104 H 05/03/18 03:41 Resp 18 05/03/18 03:41 BP 98/64 05/03/18 03:41 Pulse Ox 94 L 05/03/18 03:41 Weight - Most Recent: 111.5 kg I&O - Last 24 Hours: Intake & Output 05/02/18 05/03/18 05/03/18 22:59 06:59 14:59 Intake Total 700 500 Output Total 0 175 Balance 700 325 Lab Results Last 24 Hours: Laboratory Results - last 24 hr 04/30/18 05/02/18 05/02/18 Range/Units 09:57 07:20 07:20 WBC 11.56 H (4.0-11.0) K/uL RBC 2.85 L (4.50-5.90) M/uL Hgb 7.9 L (13.0-17.0) g/dL Hct 25.0 L (38.0-50.0) % MCV 87.7 (80.0-98.0) fL MCH 27.7 (27.0-32.0) pg MCHC 31.6 (31.0-37.0) g/dL RDW Std Deviation 59.4 (28.0-62.0) fl RDW Coeff of [place] 19 H (11.0-15.0) % Plt Count 320 (150-400) K/uL MPV 8.60 (7.40-12.00) fL Neut % (Auto) (48.0-80.0) % Lymph % (Auto) (16.0-40.0) % Carter % (Auto) (0.0-15.0) % Eos % (Auto) (0.0-7.0) % Baso % (Auto) (0.0-1.5) % Neut # (Auto) (1.4-5.7) K/uL Lymph # (Auto) (0.6-2.4) K/uL Carter # (Auto) (0.0-0.8) K/uL Eos # (Auto) (0.0-0.7) K/uL Baso # (Auto) (0.0-0.1) K/uL Add Manual Diff YES Neutrophils % (Manual) 80 (48.0-80.0) % Band Neutrophils % 6 % Lymphocytes % (Manual) 7 L (16.0-40.0) % Monocytes % (Manual) 7 (0.0-15.0) % Nucleated RBC % 0.5 /100WBC Absolute Seg Neuts 9.2 H (1.4-5.7) Band Neutrophils # 0.7 Lymphocytes # (Manual) 0.8 (0.6-2.4) Monocytes # (Manual) 0.8 (0.0-0.8) Nucleated RBCs # 0 K/uL Sodium 134 L (136-148) mmol/L Potassium 5.6 H (3.5-5.1) mmol/L Chloride 101 (98-107) mmol/L Carbon Dioxide 26.5 (21.0-32.0) mmol/L BUN 39 H (7.0-18.0) mg/dL Creatinine 1.0 (0.8-1.3) mg/dL Est Cr Clr Drug Dosing 76.59 mL/min Estimated GFR (MDRD) > 60.0 ml/min Glucose 124 H (74-106) mg/dL Calcium 9.1 (8.5-10.1) mg/dL Total Bilirubin 0.7 (0.2-1.0) mg/dL AST 152 H (15-37) IU/L ALT 28 (14-63) IU/L Alkaline Phosphatase 344 H (46-116) U/L Total Protein 5.8 L (6.4-8.2) g/dL Albumin 2.0 L (3.4-5.0) g/dL Globulin 3.8 H (2.0-3.5) g/dL Albumin/Globulin Ratio 0.5 L (1.3-2.8) Crossmatch See Detail 05/02/18 05/03/18 05/03/18 Range/Units 16:56 05:50 05:50 WBC 10.44 (4.0-11.0) K/uL RBC 2.78 L (4.50-5.90) M/uL Hgb 7.6 L (13.0-17.0) g/dL Hct 24.1 L (38.0-50.0) % MCV 86.7 (80.0-98.0) fL MCH 27.3 (27.0-32.0) pg MCHC 31.5 (31.0-37.0) g/dL RDW Std Deviation 59.1 (28.0-62.0) fl RDW Coeff of [place] 19 H (11.0-15.0) % Plt Count 361 (150-400) K/uL MPV 8.60 (7.40-12.00) fL Neut % (Auto) 85.1 H (48.0-80.0) % Lymph % (Auto) 3.3 L (16.0-40.0) % Carter % (Auto) 10.3 (0.0-15.0) % Eos % (Auto) 1.1 (0.0-7.0) % Baso % (Auto) 0.2 (0.0-1.5) % Neut # (Auto) 8.9 H (1.4-5.7) K/uL Lymph # (Auto) 0.3 L (0.6-2.4) K/uL Carter # (Auto) 1.1 H (0.0-0.8) K/uL Eos # (Auto) 0.1 (0.0-0.7) K/uL Baso # (Auto) 0.0 (0.0-0.1) K/uL Add Manual Diff Neutrophils % (Manual) (48.0-80.0) % Band Neutrophils % % Lymphocytes % (Manual) (16.0-40.0) % Monocytes % (Manual) (0.0-15.0) % Nucleated RBC % 0.6 /100WBC Absolute Seg Neuts (1.4-5.7) Band Neutrophils # Lymphocytes # (Manual) (0.6-2.4) Monocytes # (Manual) (0.0-0.8) Nucleated RBCs # 0 K/uL Sodium 132 L 134 L (136-148) mmol/L Potassium 5.2 H 5.0 (3.5-5.1) mmol/L Chloride 100 102 (98-107) mmol/L Carbon Dioxide 25.9 27.7 (21.0-32.0) mmol/L BUN 37 H 31 H (7.0-18.0) mg/dL Creatinine 0.9 0.8 (0.8-1.3) mg/dL Est Cr Clr Drug Dosing 85.10 95.74 mL/min Estimated GFR (MDRD) > 60.0 > 60.0 ml/min Glucose 128 H 101 (74-106) mg/dL Calcium 9.2 9.3 (8.5-10.1) mg/dL Total Bilirubin 0.7 (0.2-1.0) mg/dL AST 338 H (15-37) IU/L ALT 91 H (14-63) IU/L Alkaline Phosphatase 336 H (46-116) U/L Total Protein 5.5 L (6.4-8.2) g/dL Albumin 1.8 L (3.4-5.0) g/dL Globulin 3.7 H (2.0-3.5) g/dL Albumin/Globulin Ratio 0.5 L (1.3-2.8) Crossmatch [place] Results Last 24 Hours: Microbiology 04/28/18 16:40 Aerobic Blood Culture - Preliminary Blood - Venous NO GROWTH AFTER 4 DAYS Anaerobic Blood Culture - Preliminary NO GROWTH AFTER 4 DAYS 04/28/18 16:30 Aerobic Blood Culture - Preliminary Blood NO GROWTH AFTER 4 DAYS Anaerobic Blood Culture - Preliminary NO GROWTH AFTER 4 DAYS Med Orders - Current: Current Medications Albuterol (Ventolin Hfa) 8 gm INH Q6HRRT PRN PRN Reason: Wheezing Calcium Carbonate/Glycine (Tums) 1,000 mg PO DAILY [facility] Last Admin: 05/02/18 09:19 Dose: 1,000 mg Cholecalciferol (Vitamin D3) 3,000 units PO DAILY [facility] Last Admin: 05/02/18 09:14 Dose: 3,000 units Docusate Sodium (Colace) 100 mg PO DAILY [facility] Last Admin: 05/02/18 09:14 Dose: 100 mg Enoxaparin Sodium (Lovenox) 40 mg SUBCUT Q24H [facility] Last Admin: 05/02/18 15:53 Dose: 40 mg Fentanyl (Duragesic) 50 mcg TOP Q72H [facility] Last Admin: 05/02/18 20:11 Dose: 50 mcg Gabapentin (Neurontin) 300 mg PO TID [facility] Last Admin: 05/03/18 06:14 Dose: 300 mg Hydromorphone HCl (Dilaudid) 2 mg IVPUSH Q4H PRN PRN Reason: Pain Last Admin: 05/03/18 04:26 Dose: 2 mg Levofloxacin/Dextrose 750 mg/ (Premix) 150 mls @ 100 mls/hr IV Q24H [facility] Last Admin: 05/02/18 09:19 Dose: 100 mls/hr Losartan Potassium (Cozaar) 100 mg PO DAILY [facility] Last Admin: 05/02/18 09:15 Dose: Not Given Nystatin (Nystop) 0 gm TOP TID [facility] Last Admin: 05/03/18 06:13 Dose: 1 applic Omeprazole (Omeprazole) 20 mg PO ACBREAKFAST [facility] Last Admin: 05/03/18 06:14 Dose: 20 mg Ondansetron HCl (Zofran) 4 mg IVPUSH Q4H PRN PRN Reason: Nausea/Vomiting Last Admin: 05/01/18 06:32 Dose: 4 mg [id number]/Iron Fumarate /Fa/Dss [ 19 Tablet] 1 Tab 1 each PO DAILY [facility] Last Admin: 05/02/18 10:00 Dose: Not Given Polyethylene Glycol (Miralax) 17 gm PO DAILY [facility] Last Admin: 05/02/18 09:23 Dose: 17 gm Prednisone (Prednisone) 5 mg PO BIDMEALS [facility] Last Admin: 05/02/18 15:59 Dose: 5 mg Prochlorperazine Maleate (Compazine) 10 mg PO Q6H PRN PRN Reason: Nausea Discontinued Medications Fentanyl (Duragesic) 25 mcg TOP Q72H [facility] Last Admin: 05/01/18 08:16 Dose: 25 mcg Heparin Sodium (Porcine) (Heparin Lock Flush 100 Units/Ml) 500 units FLUSH ONETIME ONE Stop: 04/28/18 14:28 Last Admin: 04/28/18 15:40 Dose: 500 units Vancomycin HCl 1,250 mg/ (Sodium Chloride) 250 mls @ 166.667 mls/hr IV Q8H [facility] Last Admin: 04/30/18 08:37 Dose: 166 mls/hr Clindamycin Phosphate 600 mg/ (Premix) 50 mls @ 100 mls/hr IV Q6H [facility] Last Admin: 04/30/18 13:56 Dose: Not Given Clindamycin Phosphate 600 mg/ (Premix) 50 mls @ 100 mls/hr IV Q6H [facility] Last Admin: 05/01/18 07:05 Dose: 100 mls/hr Potassium Chloride (Klor-Con 8) 8 meq PO BID [facility] Last Admin: 05/01/18 09:45 Dose: 8 meq Vancomycin HCl (Pharmacy To Dose - Vancomycin) 1 dose .XX ASDIRECTED [facility] - Exam General: Alert, Oriented, Cooperative Lungs: Clear to Auscultation, Normal Respiratory Effort Cardiovascular: Regular Rate, Regular Rhythm GI/Abdominal Exam: Normal Bowel Sounds, Soft, Non-Tender, No Organomegaly Extremities: Pedal Edema (L>R) Skin: Warm, Dry Wound/Incisions: Drainage Neurological: No New Focal Deficit Psy/Mental Status: Alert, Normal Affect, Normal Mood - Problem List Review Problem List Initiated/Reviewed/Updated: Yes - My Orders Last 24 Hours: My Active Orders 05/02/18 10:59 Consult to Physician [CONS] Routine 05/02/18 11:00 Notify Provider Consults [RC] ASDIRECTED - Plan Plan:: 1. Intractable Pain secondary to prostate cancer and mets to the bone- Continue working on pain control with fentanyl patch and Dilaudid. Fentanyl does increased yesterday, required slightly less prn diluadid. Hospice was consulted to help with pain control and goals of care. Case management is working on placement. He is currently applying for [place] medicaid. [facility] needs this medicaid before he would be accepted there. Patient did switch his code status to DNR/DNI. Dr. Iglesias of ortho evaluated him yesterday and does not think there is anything to do surgically and that his best option would be comfort care. Hospice spoke to the family and provided additional information. When I followed up with patient and family, they decided that they want hospice. We will continue on current management until hospice does their intake. 2. Left greater trochanter wound growing S. Aurues as well as Pseudomonas, sensitive to levofloxacin- Patient continued on Levaquin, white count trending down, no fever. 3. Chronic normocytic anemia s/p transfusion- continue to monitor H/H 4. PMH- asthma, HTN, GERD, RA- continue home medications.
[2018-05-03] MEDS: Calcium Carbonate 500 MG Tab.Chew PO SCH (08:14)
[2018-05-03] MEDS: Docusate Sodium 100 MG Cap PO SCH (08:16)
[2018-05-03] MEDS: Cholecalciferol (Vitamin D3) 1,000 Unit Tab PO SCH (08:16)
[2018-05-03] MEDS: Losartan 50 MG Tab PO SCH (08:17)
[2018-05-03] MEDS: predniSONE 5 MG Tab PO SCH ×2 (08:18→16:47)
[2018-05-03] MEDS: Polyethylene Glycol 3350 Powder 17 GM Packet PO SCH (08:18)
[2018-05-03] MEDS: Levofloxacin/Dextrose 5%-Water 750 MG in Premix Bag 1 BAG IV SCH (08:23)
[2018-05-03] MEDS: DSS PO SCH (09:55)
[2018-05-03] MEDS: [UNRECOGNIZED DRUG - OTHER] PO SCH (09:55)
[2018-05-03] MEDS: IRON FUMARATE PO SCH (09:55)
[2018-05-03] MEDS: Enoxaparin 40 MG/0.4 ML Syringe SUBCUT SCH (16:48)
[2018-05-03] MEDS: Albuterol 8 GM Inhaler INH PRN (17:15)
[2018-05-04] MEDS: HYDROmorphone 2 MG/ML SDV IVPUSH PRN ×8 (02:33→23:33)
[2018-05-04] MEDS: Gabapentin 300 MG Cap PO SCH ×3 (06:20→21:35)
[2018-05-04] MEDS: Nystatin Topical Powder 15 GM Bottle TOP SCH ×3 (06:24→21:35)
[2018-05-04] MEDS: Omeprazole 20 MG Cap.CR PO SCH (06:32)
--- NOTE | 2018-05-04 07:08 | PCM.PN ---
- General Info Date of Service: 05/04/18 Subjective Update: The patient reports he is doing fine. He reports his pain is better controlled since we changed his dialudid from every 4 hours to every 2 hours. He is still eating and drinking without difficulty. He denies chest pain, shortness of breath, or abdomen pain. All his pain is coming from his left hip and leg. Case management is working on [facility] placement. Yesterday the patient decided to go with hospice care. - Review of Systems General: Reports: No Symptoms HEENT: Reports: No Symptoms Pulmonary: Reports: No Symptoms Cardiovascular: Reports: No Symptoms Gastrointestinal: Reports: No Symptoms Genitourinary: Reports: Incontinence Musculoskeletal: Reports: Leg Pain Skin: Reports: No Symptoms Neurological: Reports: No Symptoms Psychiatric: Reports: No Symptoms - Patient Data Vitals - Most Recent: Last Vital Signs Temp 97.9 F 05/04/18 04:00 Pulse 57 L 05/04/18 04:00 Resp 20 05/04/18 04:00 BP 105/58 L 05/04/18 04:00 Pulse Ox 93 L 05/04/18 04:00 Weight - Most Recent: 111.5 kg I&O - Last 24 Hours: Intake & Output 05/03/18 05/04/18 05/04/18 22:59 06:59 14:59 Intake Total 750 450 Output Total 800 0 Balance -50 450 [place] Results Last 24 Hours: Microbiology 04/28/18 16:40 Aerobic Blood Culture - Final Blood - Venous NO GROWTH AFTER 5 DAYS Anaerobic Blood Culture - Final NO GROWTH AFTER 5 DAYS 04/28/18 16:30 Aerobic Blood Culture - Final Blood NO GROWTH AFTER 5 DAYS Anaerobic Blood Culture - Final NO GROWTH AFTER 5 DAYS Med Orders - Current: Current Medications Albuterol (Ventolin Hfa) 8 gm INH Q6HRRT PRN PRN Reason: Wheezing Last Admin: 05/03/18 17:15 Dose: 2 dose Calcium Carbonate/Glycine (Tums) 1,000 mg PO DAILY [facility] Last Admin: 05/03/18 08:14 Dose: 1,000 mg Cholecalciferol (Vitamin D3) 3,000 units PO DAILY [facility] Last Admin: 05/03/18 08:16 Dose: 3,000 units Docusate Sodium (Colace) 100 mg PO DAILY [facility] Last Admin: 05/03/18 08:16 Dose: 100 mg Enoxaparin Sodium (Lovenox) 40 mg SUBCUT Q24H [facility] Last Admin: 05/03/18 16:48 Dose: 40 mg Fentanyl (Duragesic) 50 mcg TOP Q72H [facility] Last Admin: 05/02/18 20:11 Dose: 50 mcg Gabapentin (Neurontin) 300 mg PO TID [facility] Last Admin: 05/04/18 06:20 Dose: 300 mg Hydromorphone HCl (Dilaudid) 2 mg IVPUSH Q2H PRN PRN Reason: Pain Last Admin: 05/04/18 04:53 Dose: 2 mg Levofloxacin/Dextrose 750 mg/ (Premix) 150 mls @ 100 mls/hr IV Q24H [facility] Last Admin: 05/03/18 08:23 Dose: 100 mls/hr Losartan Potassium (Cozaar) 100 mg PO DAILY [facility] Last Admin: 05/03/18 08:17 Dose: 100 mg Nystatin (Nystop) 0 gm TOP TID [facility] Last Admin: 05/04/18 06:24 Dose: 1 applic Omeprazole (Omeprazole) 20 mg PO ACBREAKFAST [facility] Last Admin: 05/04/18 06:32 Dose: 20 mg Ondansetron HCl (Zofran) 4 mg IVPUSH Q4H PRN PRN Reason: Nausea/Vomiting Last Admin: 05/01/18 06:32 Dose: 4 mg [id number]/Iron Fumarate /Fa/Dss [ 19 Tablet] 1 Tab 1 each PO DAILY [facility] Last Admin: 05/03/18 09:55 Dose: Not Given Polyethylene Glycol (Miralax) 17 gm PO DAILY [facility] Last Admin: 05/03/18 08:18 Dose: Not Given Prednisone (Prednisone) 5 mg PO BIDMEALS [facility] Last Admin: 05/03/18 16:47 Dose: 5 mg Prochlorperazine Maleate (Compazine) 10 mg PO Q6H PRN PRN Reason: Nausea Discontinued Medications Fentanyl (Duragesic) 25 mcg TOP Q72H [facility] Last Admin: 05/01/18 08:16 Dose: 25 mcg Heparin Sodium (Porcine) (Heparin Lock Flush 100 Units/Ml) 500 units FLUSH ONETIME ONE Stop: 04/28/18 14:28 Last Admin: 04/28/18 15:40 Dose: 500 units Hydromorphone HCl (Dilaudid) 2 mg IVPUSH Q4H PRN PRN Reason: Pain Last Admin: 05/03/18 17:27 Dose: 2 mg Vancomycin HCl 1,250 mg/ (Sodium Chloride) 250 mls @ 166.667 mls/hr IV Q8H [facility] Last Admin: 04/30/18 08:37 Dose: 166 mls/hr Clindamycin Phosphate 600 mg/ (Premix) 50 mls @ 100 mls/hr IV Q6H [facility] Last Admin: 04/30/18 13:56 Dose: Not Given Clindamycin Phosphate 600 mg/ (Premix) 50 mls @ 100 mls/hr IV Q6H [facility] Last Admin: 05/01/18 07:05 Dose: 100 mls/hr Potassium Chloride (Klor-Con 8) 8 meq PO BID [facility] Last Admin: 05/01/18 09:45 Dose: 8 meq Vancomycin HCl (Pharmacy To Dose - Vancomycin) 1 dose .XX ASDIRECTED [facility] - Exam General: Alert, Oriented, Cooperative Lungs: Clear to Auscultation, Normal Respiratory Effort Cardiovascular: Regular Rate, Regular Rhythm GI/Abdominal Exam: Normal Bowel Sounds, Soft, Non-Tender Extremities: Pedal Edema (L>R) Skin: Warm, Dry Wound/Incisions: Dressing Dry and Intact Neurological: No New Focal Deficit Psy/Mental Status: Alert, Normal Affect, Normal Mood - Problem List Review Problem List Initiated/Reviewed/Updated: Yes - Plan Plan:: 1. Intractable Pain secondary to prostate cancer and mets to the bone- Continue working on pain control with fentanyl patch and Dilaudid. Dilaudid dose interval changed from every 4 hours to every 2 hours. This change is better controlling his pain. Hospice will see him once he gets [facility] in a [facility]. Case management is working on placement. He is currently applying for [place] medicaid. [facility] needs [facility] before he would be accepted there. Patient did switch his code status to DNR/DNI and decided to go with hospice care. We will continue on current management until hospice does their intake in the [facility]. 2. Left greater trochanter wound growing S. Aurues as well as Pseudomonas, sensitive to levofloxacin- Patient continued on Levaquin 3. Chronic normocytic anemia s/p transfusion- no longer monitoring labs due to hospice status. 4. PMH- asthma, HTN, GERD, RA- continue home medications.
[2018-05-04] MEDS: Losartan 50 MG Tab PO SCH (08:21)
[2018-05-04] MEDS: predniSONE 5 MG Tab PO SCH ×2 (08:21→16:34)
[2018-05-04] MEDS: Cholecalciferol (Vitamin D3) 1,000 Unit Tab PO SCH (08:21)
[2018-05-04] MEDS: Calcium Carbonate 500 MG Tab.Chew PO SCH (08:21)
[2018-05-04] MEDS: Docusate Sodium 100 MG Cap PO SCH (08:21)
[2018-05-04] MEDS: Polyethylene Glycol 3350 Powder 17 GM Packet PO SCH (08:22)
[2018-05-04] MEDS: Levofloxacin/Dextrose 5%-Water 750 MG in Premix Bag 1 BAG IV SCH (08:22)
[2018-05-04] MEDS: [UNRECOGNIZED DRUG - OTHER] PO SCH (08:41)
[2018-05-04] MEDS: IRON FUMARATE PO SCH (08:41)
[2018-05-04] MEDS: DSS PO SCH (08:41)
[2018-05-04] MEDS: Enoxaparin 40 MG/0.4 ML Syringe SUBCUT SCH (16:34)
[2018-05-05] MEDS: HYDROmorphone 2 MG/ML SDV IVPUSH PRN ×7 (04:22→21:57)
[2018-05-05] MEDS: Albuterol 8 GM Inhaler INH PRN (04:30)
[2018-05-05] MEDS: Gabapentin 300 MG Cap PO SCH ×3 (06:26→21:54)
[2018-05-05] MEDS: Nystatin Topical Powder 15 GM Bottle TOP SCH ×3 (06:26→21:59)
[2018-05-05] MEDS: Omeprazole 20 MG Cap.CR PO SCH (06:30)
--- NOTE | 2018-05-05 08:00 | PCM.PN ---
- General Info Date of Service: 05/05/18 Subjective Update: Patient doing well, he denies chest pain, shortness of breath, or abdominal pain. He has been eating and drinking without difficulty. He still reports left hip and leg pain. Yesterday he required 8 doses of Dilaudid. The sister has given case management the financial information for medicaid. - Review of Systems General: Reports: No Symptoms HEENT: Reports: No Symptoms Pulmonary: Reports: No Symptoms Cardiovascular: Reports: No Symptoms Gastrointestinal: Reports: No Symptoms Genitourinary: Reports: No Symptoms Musculoskeletal: Reports: Leg Pain Neurological: Reports: No Symptoms Psychiatric: Reports: No Symptoms - Patient Data Vitals - Most Recent: Last Vital Signs Temp 98.4 F 05/05/18 04:00 Pulse 100 05/05/18 04:00 Resp 22 H 05/05/18 04:00 BP 124/68 05/05/18 04:00 Pulse Ox 95 05/05/18 04:00 Weight - Most Recent: 111.5 kg I&O - Last 24 Hours: Intake & Output 05/04/18 05/05/18 05/05/18 22:59 06:59 14:59 Intake Total 490 470 Output Total 791 Balance -301 470 Med Orders - Current: Current Medications Albuterol (Ventolin Hfa) 8 gm INH Q6HRRT PRN PRN Reason: Wheezing Last Admin: 05/05/18 04:30 Dose: 1 dose Calcium Carbonate/Glycine (Tums) 1,000 mg PO DAILY [facility] Last Admin: 05/04/18 08:21 Dose: 1,000 mg Cholecalciferol (Vitamin D3) 3,000 units PO DAILY [facility] Last Admin: 05/04/18 08:21 Dose: 3,000 units Docusate Sodium (Colace) 100 mg PO DAILY [facility] Last Admin: 05/04/18 08:21 Dose: 100 mg Enoxaparin Sodium (Lovenox) 40 mg SUBCUT Q24H [facility] Last Admin: 05/04/18 16:34 Dose: 40 mg Fentanyl (Duragesic) 50 mcg TOP Q72H [facility] Last Admin: 05/02/18 20:11 Dose: 50 mcg Gabapentin (Neurontin) 300 mg PO TID [facility] Last Admin: 05/05/18 06:26 Dose: 300 mg Hydromorphone HCl (Dilaudid) 2 mg IVPUSH Q2H PRN PRN Reason: Pain Last Admin: 05/05/18 07:52 Dose: 2 mg Levofloxacin/Dextrose 750 mg/ (Premix) 150 mls @ 100 mls/hr IV Q24H [facility] Last Admin: 05/04/18 08:22 Dose: 100 mls/hr Losartan Potassium (Cozaar) 100 mg PO DAILY [facility] Last Admin: 05/04/18 08:21 Dose: 100 mg Nystatin (Nystop) 0 gm TOP TID [facility] Last Admin: 05/05/18 06:26 Dose: 1 applic Omeprazole (Omeprazole) 20 mg PO ACBREAKFAST [facility] Last Admin: 05/05/18 06:30 Dose: 20 mg Ondansetron HCl (Zofran) 4 mg IVPUSH Q4H PRN PRN Reason: Nausea/Vomiting Last Admin: 05/01/18 06:32 Dose: 4 mg Ckh327/Iron Fumarate /Fa/Dss [ 19 Tablet] 1 Tab 1 each PO DAILY [facility] Last Admin: 05/04/18 08:41 Dose: Not Given Polyethylene Glycol (Miralax) 17 gm PO DAILY [facility] Last Admin: 05/04/18 08:22 Dose: 17 gm Prednisone (Prednisone) 5 mg PO BIDMEALS [facility] Last Admin: 05/04/18 16:34 Dose: 5 mg Prochlorperazine Maleate (Compazine) 10 mg PO Q6H PRN PRN Reason: Nausea Discontinued Medications Fentanyl (Duragesic) 25 mcg TOP Q72H [facility] Last Admin: 05/01/18 08:16 Dose: 25 mcg Heparin Sodium (Porcine) (Heparin Lock Flush 100 Units/Ml) 500 units FLUSH ONETIME ONE Stop: 04/28/18 14:28 Last Admin: 04/28/18 15:40 Dose: 500 units Hydromorphone HCl (Dilaudid) 2 mg IVPUSH Q4H PRN PRN Reason: Pain Last Admin: 05/03/18 17:27 Dose: 2 mg Vancomycin HCl 1,250 mg/ (Sodium Chloride) 250 mls @ 166.667 mls/hr IV Q8H [facility] Last Admin: 04/30/18 08:37 Dose: 166 mls/hr Clindamycin Phosphate 600 mg/ (Premix) 50 mls @ 100 mls/hr IV Q6H [facility] Last Admin: 04/30/18 13:56 Dose: Not Given Clindamycin Phosphate 600 mg/ (Premix) 50 mls @ 100 mls/hr IV Q6H [facility] Last Admin: 05/01/18 07:05 Dose: 100 mls/hr Potassium Chloride (Klor-Con 8) 8 meq PO BID [facility] Last Admin: 05/01/18 09:45 Dose: 8 meq Vancomycin HCl (Pharmacy To Dose - Vancomycin) 1 dose .XX ASDIRECTED [facility] - Exam General: Alert, Oriented Lungs: Clear to Auscultation, Normal Respiratory Effort Cardiovascular: Regular Rate, Regular Rhythm GI/Abdominal Exam: Normal Bowel Sounds, Soft, Non-Tender Extremities: Pedal Edema (L>R) Skin: Warm, Dry Psy/Mental Status: Alert, Normal Affect, Normal Mood - Problem List Review Problem List Initiated/Reviewed/Updated: Yes - Plan Plan:: 1. Intractable Pain secondary to prostate cancer and mets to the bone- Continue working on pain control with fentanyl patch and Dilaudid. He is requring more diluadid so we will add a PO oxycodone. Hospice will see him once he gets established in a [facility]. Case managament received the [employer]/ medicaid information and are working on placement. Patient did switch his code status to DNR/DNI and decided to go with hospice care. We will continue on current management until hospice does their intake in the [facility]. 2. Left greater trochanter wound growing S. Aurues as well as Pseudomonas, sensitive to levofloxacin- Patient continued on Levaquin 3. Chronic normocytic anemia s/p transfusion- no longer monitoring labs due to hospice status. 4. PMH- asthma, HTN, GERD, RA- continue home medications.
[2018-05-05] MEDS: Calcium Carbonate 500 MG Tab.Chew PO SCH (08:54)
[2018-05-05] MEDS: predniSONE 5 MG Tab PO SCH ×2 (08:54→16:46)
[2018-05-05] MEDS: Losartan 50 MG Tab PO SCH (08:55)
[2018-05-05] MEDS: Cholecalciferol (Vitamin D3) 1,000 Unit Tab PO SCH (08:55)
[2018-05-05] MEDS: Docusate Sodium 100 MG Cap PO SCH (08:55)
[2018-05-05] MEDS: Levofloxacin/Dextrose 5%-Water 750 MG in Premix Bag 1 BAG IV SCH (08:56)
[2018-05-05] MEDS: Polyethylene Glycol 3350 Powder 17 GM Packet PO SCH (08:56)
[2018-05-05] MEDS: fentaNYL 50 MCG/HR Transdermal Patch TOP SCH (09:21)
[2018-05-05] MEDS: DSS PO SCH (11:26)
[2018-05-05] MEDS: IRON FUMARATE PO SCH (11:26)
[2018-05-05] MEDS: [UNRECOGNIZED DRUG - OTHER] PO SCH (11:26)
[2018-05-05] MEDS: Enoxaparin 40 MG/0.4 ML Syringe SUBCUT SCH (16:45)
[2018-05-06] MEDS: HYDROmorphone 2 MG/ML SDV IVPUSH PRN ×8 (02:12→22:11)
[2018-05-06] MEDS: Nystatin Topical Powder 15 GM Bottle TOP SCH ×4 (06:26→21:09)
[2018-05-06] MEDS: Gabapentin 300 MG Cap PO SCH ×3 (06:27→21:08)
[2018-05-06] MEDS: Omeprazole 20 MG Cap.CR PO SCH (06:32)
--- NOTE | 2018-05-06 07:29 | PCM.PN ---
- General Info Date of Service: 05/06/18 Subjective Update: The patient reports he is doing ok. He reports he is still in pain. After talking with him yesterday, we added oxycodone for pain because he said that has helped in the past. He did not receive any yesterday because he refused it with nursing. He told nursing that in the past oxycodone hasn't worked to control his pain. The patient does not have any other complaints, he denies chest pain, shortness of breath, abdominal pain, nausea or vomiting. - Review of Systems General: Reports: No Symptoms HEENT: Reports: No Symptoms Pulmonary: Reports: No Symptoms Cardiovascular: Reports: No Symptoms Gastrointestinal: Reports: No Symptoms Musculoskeletal: Reports: No Symptoms, Leg Pain (left) Skin: Reports: No Symptoms Neurological: Reports: No Symptoms Psychiatric: Reports: No Symptoms - Patient Data Vitals - Most Recent: Last Vital Signs Temp 97.2 F 05/06/18 04:00 Pulse 100 05/06/18 04:00 Resp 20 05/06/18 04:00 BP 104/64 05/06/18 04:00 Pulse Ox 93 L 05/06/18 04:00 Weight - Most Recent: 111.5 kg I&O - Last 24 Hours: Intake & Output 05/05/18 05/06/18 05/06/18 22:59 06:59 14:59 Intake Total 600 828 Output Total 0 Balance 600 828 Med Orders - Current: Current Medications Albuterol (Ventolin Hfa) 8 gm INH Q6HRRT PRN PRN Reason: Wheezing Last Admin: 05/05/18 04:30 Dose: 1 dose Calcium Carbonate/Glycine (Tums) 1,000 mg PO DAILY [facility] Last Admin: 05/05/18 08:54 Dose: 1,000 mg Cholecalciferol (Vitamin D3) 3,000 units PO DAILY [facility] Last Admin: 05/05/18 08:55 Dose: 3,000 units Docusate Sodium (Colace) 100 mg PO DAILY [facility] Last Admin: 05/05/18 08:55 Dose: 100 mg Enoxaparin Sodium (Lovenox) 40 mg SUBCUT Q24H [facility] Last Admin: 05/05/18 16:45 Dose: 40 mg Fentanyl (Duragesic) 50 mcg TOP Q72H [facility] Last Admin: 05/05/18 09:21 Dose: 50 mcg Gabapentin (Neurontin) 300 mg PO TID [facility] Last Admin: 05/06/18 06:27 Dose: 300 mg Hydromorphone HCl (Dilaudid) 2 mg IVPUSH Q2H PRN PRN Reason: Pain Last Admin: 05/06/18 06:22 Dose: 2 mg Levofloxacin/Dextrose 750 mg/ (Premix) 150 mls @ 100 mls/hr IV Q24H [facility] Last Admin: 05/05/18 08:56 Dose: 100 mls/hr Losartan Potassium (Cozaar) 100 mg PO DAILY [facility] Last Admin: 05/05/18 08:55 Dose: Not Given Nystatin (Nystop) 0 gm TOP TID [facility] Last Admin: 05/06/18 06:26 Dose: 1 applic Omeprazole (Omeprazole) 20 mg PO ACBREAKFAST [facility] Last Admin: 05/06/18 06:32 Dose: 20 mg Ondansetron HCl (Zofran) 4 mg IVPUSH Q4H PRN PRN Reason: Nausea/Vomiting Last Admin: 05/01/18 06:32 Dose: 4 mg Oxycodone HCl (Oxycodone) 5 mg PO Q4H PRN PRN Reason: Pain [id number]/Iron Fumarate /Fa/Dss [ 19 Tablet] 1 Tab 1 each PO DAILY [facility] Last Admin: 05/05/18 11:26 Dose: Not Given Polyethylene Glycol (Miralax) 17 gm PO DAILY [facility] Last Admin: 05/05/18 08:56 Dose: 17 gm Prednisone (Prednisone) 5 mg PO BIDMEALS [facility] Last Admin: 05/05/18 16:46 Dose: 5 mg Prochlorperazine Maleate (Compazine) 10 mg PO Q6H PRN PRN Reason: Nausea Discontinued Medications Fentanyl (Duragesic) 25 mcg TOP Q72H [facility] Last Admin: 05/01/18 08:16 Dose: 25 mcg Heparin Sodium (Porcine) (Heparin Lock Flush 100 Units/Ml) 500 units FLUSH ONETIME ONE Stop: 04/28/18 14:28 Last Admin: 04/28/18 15:40 Dose: 500 units Hydromorphone HCl (Dilaudid) 2 mg IVPUSH Q4H PRN PRN Reason: Pain Last Admin: 05/03/18 17:27 Dose: 2 mg Vancomycin HCl 1,250 mg/ (Sodium Chloride) 250 mls @ 166.667 mls/hr IV Q8H [facility] Last Admin: 04/30/18 08:37 Dose: 166 mls/hr Clindamycin Phosphate 600 mg/ (Premix) 50 mls @ 100 mls/hr IV Q6H [facility] Last Admin: 04/30/18 13:56 Dose: Not Given Clindamycin Phosphate 600 mg/ (Premix) 50 mls @ 100 mls/hr IV Q6H [facility] Last Admin: 05/01/18 07:05 Dose: 100 mls/hr Potassium Chloride (Klor-Con 8) 8 meq PO BID [facility] Last Admin: 05/01/18 09:45 Dose: 8 meq Vancomycin HCl (Pharmacy To Dose - Vancomycin) 1 dose .XX ASDIRECTED [facility] - Exam General: Alert, Oriented, Cooperative Lungs: Clear to Auscultation, Normal Respiratory Effort Cardiovascular: Regular Rhythm, Tachycardia GI/Abdominal Exam: Normal Bowel Sounds, Soft, Non-Tender Extremities: Pedal Edema (L>R) Skin: Warm, Dry Wound/Incisions: Healing Well, Dressing Dry and Intact Neurological: No New Focal Deficit Psy/Mental Status: Alert, Normal Affect, Normal Mood - Problem List Review Problem List Initiated/Reviewed/Updated: Yes - My Orders Last 24 Hours: My Active Orders 05/05/18 10:39 oxyCODONE 5 mg PO Q4H PRN - Plan Plan:: 1. Intractable Pain secondary to prostate cancer and mets to the bone- Continue working on pain control with fentanyl patch and Dilaudid. We added oxycodone yesterday because the patient reported that it had helped with pain in the past. Although, yesterday he refused the medication with nursing staff because he didn't think it would help. Hosp[facility] will see him [facility]. Case management received the financial/medicaid information and are working on placement. Patient did switch his code status to DNR/DNI and decided to go with hospice care. We will continue on current management until hosp[facility] their intake [facility] the [facility]. 2. Left greater trochanter wound growing S. Aurues as well as Pseudomonas, sensitive to levofloxacin- Patient continued on Levaquin 3. Chronic normocytic anemia s/p transfusion- no longer monitoring labs due to hospice status. 4. PMH- asthma, HTN, GERD, RA- continue home medications.
[2018-05-06] MEDS: Cholecalciferol (Vitamin D3) 1,000 Unit Tab PO SCH (08:33)
[2018-05-06] MEDS: Losartan 50 MG Tab PO SCH (08:34)
[2018-05-06] MEDS: predniSONE 5 MG Tab PO SCH ×2 (08:34→17:30)
[2018-05-06] MEDS: Calcium Carbonate 500 MG Tab.Chew PO SCH (08:35)
[2018-05-06] MEDS: Docusate Sodium 100 MG Cap PO SCH (08:35)
[2018-05-06] MEDS: Levofloxacin/Dextrose 5%-Water 750 MG in Premix Bag 1 BAG IV SCH (08:37)
[2018-05-06] MEDS: IRON FUMARATE PO SCH (10:47)
[2018-05-06] MEDS: DSS PO SCH (10:47)
[2018-05-06] MEDS: [UNRECOGNIZED DRUG - OTHER] PO SCH (10:47)
[2018-05-06] MEDS: Polyethylene Glycol 3350 Powder 17 GM Packet PO SCH ×2 (11:11→21:06)
[2018-05-06] MEDS: Enoxaparin 40 MG/0.4 ML Syringe SUBCUT SCH (17:30)
[2018-05-06] MEDS: oxyCODONE 5 MG Tab PO PRN (20:13)
[2018-05-07] MEDS: HYDROmorphone 2 MG/ML SDV IVPUSH PRN ×6 (01:47→21:15)
[2018-05-07] MEDS: oxyCODONE 5 MG Tab PO PRN ×4 (04:35→20:32)
[2018-05-07] MEDS: Gabapentin 300 MG Cap PO SCH ×3 (05:00→21:17)
[2018-05-07] MEDS: Nystatin Topical Powder 15 GM Bottle TOP SCH ×3 (05:01→21:21)
[2018-05-07] MEDS: Omeprazole 20 MG Cap.CR PO SCH (06:31)
--- NOTE | 2018-05-07 07:58 | PCM.PN ---
- General Info Date of Service: 05/07/18 Subjective Update: The patient is a 62-year-old male who was admitted for intractable pain secondary to prostate cancer and metastases to the bone. We've been working pain control with Fentanyl, Dilaudid and oxycodone. He was able to take some oxycodone yesterday, but he is unsure if that helped or not. [facility]. [facility] he'll be on hospice care. When speaking with Fahad today, he reports he is eating, drinking without difficulty. Denies any chest pain, shortness breath, abdominal pain. He still endorses the left leg and hip pain. - Patient Data Vitals - Most Recent: Last Vital Signs Temp 97.5 F 05/07/18 03:59 Pulse 109 H 05/07/18 03:59 Resp 20 05/07/18 03:59 BP 104/67 05/07/18 03:59 Pulse Ox 94 L 05/07/18 03:59 Weight - Most Recent: 111.5 kg I&O - Last 24 Hours: Intake & Output 05/06/18 05/07/18 05/07/18 22:59 06:59 14:59 Intake Total 1042 600 Output Total 0 Balance 1042 600 Med Orders - Current: Current Medications Albuterol (Ventolin Hfa) 8 gm INH Q6HRRT PRN PRN Reason: Wheezing Last Admin: 05/05/18 04:30 Dose: 1 dose Calcium Carbonate/Glycine (Tums) 1,000 mg PO DAILY [facility] Last Admin: 05/06/18 08:35 Dose: 1,000 mg Cholecalciferol (Vitamin D3) 3,000 units PO DAILY [facility] Last Admin: 05/06/18 08:33 Dose: 3,000 units Docusate Sodium (Colace) 100 mg PO DAILY [facility] Last Admin: 05/06/18 08:35 Dose: 100 mg Enoxaparin Sodium (Lovenox) 40 mg SUBCUT Q24H [facility] Last Admin: 05/06/18 17:30 Dose: 40 mg Fentanyl (Duragesic) 50 mcg TOP Q72H [facility] Last Admin: 05/05/18 09:21 Dose: 50 mcg Gabapentin (Neurontin) 300 mg PO TID [facility] Last Admin: 05/07/18 05:00 Dose: 300 mg Hydromorphone HCl (Dilaudid) 2 mg IVPUSH Q2H PRN PRN Reason: Pain Last Admin: 05/07/18 06:25 Dose: 2 mg Levofloxacin/Dextrose 750 mg/ (Premix) 150 mls @ 100 mls/hr IV Q24H [facility] Last Admin: 05/06/18 08:37 Dose: 100 mls/hr Losartan Potassium (Cozaar) 100 mg PO DAILY [facility] Last Admin: 05/06/18 08:34 Dose: 100 mg Nystatin (Nystop) 0 gm TOP TID [facility] Last Admin: 05/07/18 05:01 Dose: 1 applic Omeprazole (Omeprazole) 20 mg PO ACBREAKFAST [facility] Last Admin: 05/07/18 06:31 Dose: 20 mg Ondansetron HCl (Zofran) 4 mg IVPUSH Q4H PRN PRN Reason: Nausea/Vomiting Last Admin: 05/01/18 06:32 Dose: 4 mg Oxycodone HCl (Oxycodone) 5 mg PO Q4H PRN PRN Reason: Pain Last Admin: 05/07/18 04:35 Dose: 5 mg Rit637/Iron Fumarate /Fa/Dss [ 19 Tablet] 1 Tab 1 each PO DAILY [facility] Last Admin: 05/06/18 10:47 Dose: Not Given Polyethylene Glycol (Miralax) 17 gm PO DAILY [facility] Last Admin: 05/06/18 21:06 Dose: 17 gm Prednisone (Prednisone) 5 mg PO BIDMEALS [facility] Last Admin: 05/06/18 17:30 Dose: 5 mg Prochlorperazine Maleate (Compazine) 10 mg PO Q6H PRN PRN Reason: Nausea Discontinued Medications Fentanyl (Duragesic) 25 mcg TOP Q72H [facility] Last Admin: 05/01/18 08:16 Dose: 25 mcg Heparin Sodium (Porcine) (Heparin Lock Flush 100 Units/Ml) 500 units FLUSH ONETIME ONE Stop: 04/28/18 14:28 Last Admin: 04/28/18 15:40 Dose: 500 units Hydromorphone HCl (Dilaudid) 2 mg IVPUSH Q4H PRN PRN Reason: Pain Last Admin: 05/03/18 17:27 Dose: 2 mg Vancomycin HCl 1,250 mg/ (Sodium Chloride) 250 mls @ 166.667 mls/hr IV Q8H [facility] Last Admin: 04/30/18 08:37 Dose: 166 mls/hr Clindamycin Phosphate 600 mg/ (Premix) 50 mls @ 100 mls/hr IV Q6H [facility] Last Admin: 04/30/18 13:56 Dose: Not Given Clindamycin Phosphate 600 mg/ (Premix) 50 mls @ 100 mls/hr IV Q6H [facility] Last Admin: 05/01/18 07:05 Dose: 100 mls/hr Potassium Chloride (Klor-Con 8) 8 meq PO BID [facility] Last Admin: 05/01/18 09:45 Dose: 8 meq Vancomycin HCl (Pharmacy To Dose - Vancomycin) 1 dose .XX ASDIRECTED [facility] - Exam General: Alert, Cooperative, No Acute Distress Lungs: Clear to Auscultation, Normal Respiratory Effort Cardiovascular: Regular Rate, Regular Rhythm GI/Abdominal Exam: Normal Bowel Sounds, Soft, Non-Tender Extremities: Pedal Edema (L>R) Skin: Warm, Dry Wound/Incisions: Healing Well Psy/Mental Status: Alert, Normal Affect, Normal Mood - Problem List Review Problem List Initiated/Reviewed/Updated: Yes - Plan Plan:: 1. Intractable Pain secondary to prostate cancer and mets to the bone- Continue working on pain control with fentanyl patch and Dilaudid. We had added oxycodone and Fahad has tried it but is unsure if it is helping his pain. Hospice will see him once [facility] in a [facility]. Case management received the financial/medicaid information and are working on placement. Patient did switch his code status to DNR/DNI and decided to go with hospice care. We will continue on current management until [facility] their intake in the [facility]. 2. Left greater trochanter wound growing S. Aurues as well as Pseudomonas, sensitive to levofloxacin- Patient continued on Levaquin 3. Chronic normocytic anemia s/p transfusion- no longer monitoring labs due to hospice status. 4. PMH- asthma, HTN, GERD, RA- continue home medications.
[2018-05-07] MEDS: Polyethylene Glycol 3350 Powder 17 GM Packet PO SCH (08:27)
[2018-05-07] MEDS: Cholecalciferol (Vitamin D3) 1,000 Unit Tab PO SCH (08:28)
[2018-05-07] MEDS: Calcium Carbonate 500 MG Tab.Chew PO SCH (08:28)
[2018-05-07] MEDS: Docusate Sodium 100 MG Cap PO SCH (08:28)
[2018-05-07] MEDS: predniSONE 5 MG Tab PO SCH ×2 (08:29→16:05)
[2018-05-07] MEDS: Losartan 50 MG Tab PO SCH (08:29)
[2018-05-07] MEDS: Levofloxacin/Dextrose 5%-Water 750 MG in Premix Bag 1 BAG IV SCH (08:30)
[2018-05-07] MEDS: [UNRECOGNIZED DRUG - OTHER] PO SCH (09:45)
[2018-05-07] MEDS: DSS PO SCH (09:45)
[2018-05-07] MEDS: IRON FUMARATE PO SCH (09:45)
[2018-05-07] MEDS: Enoxaparin 40 MG/0.4 ML Syringe SUBCUT SCH (16:06)
[2018-05-08] MEDS: oxyCODONE 5 MG Tab PO PRN ×5 (01:22→23:10)
[2018-05-08] MEDS: HYDROmorphone 2 MG/ML SDV IVPUSH PRN ×5 (02:29→20:33)
[2018-05-08] MEDS: Gabapentin 300 MG Cap PO SCH ×3 (05:04→23:10)
[2018-05-08] MEDS: Nystatin Topical Powder 15 GM Bottle TOP SCH ×3 (06:26→23:10)
[2018-05-08] MEDS: Omeprazole 20 MG Cap.CR PO SCH (06:29)
[2018-05-08] MEDS: Calcium Carbonate 500 MG Tab.Chew PO SCH (09:13)
[2018-05-08] MEDS: predniSONE 5 MG Tab PO SCH ×2 (09:13→16:15)
[2018-05-08] MEDS: Polyethylene Glycol 3350 Powder 17 GM Packet PO SCH (09:13)
[2018-05-08] MEDS: Cholecalciferol (Vitamin D3) 1,000 Unit Tab PO SCH (09:13)
[2018-05-08] MEDS: Docusate Sodium 100 MG Cap PO SCH (09:13)
[2018-05-08] MEDS: Levofloxacin/Dextrose 5%-Water 750 MG in Premix Bag 1 BAG IV SCH (09:14)
[2018-05-08] MEDS: DSS PO SCH (09:15)
[2018-05-08] MEDS: [UNRECOGNIZED DRUG - OTHER] PO SCH (09:15)
[2018-05-08] MEDS: IRON FUMARATE PO SCH (09:15)
[2018-05-08] MEDS: Losartan 50 MG Tab PO SCH (09:16)
[2018-05-08] MEDS: fentaNYL 50 MCG/HR Transdermal Patch TOP SCH (12:03)
--- NOTE | 2018-05-08 12:41 | PCM.PN ---
- General Info Date of Service: 05/08/18 Subjective Update: The patient is a 62-year-old male who was admitted for intractable pain secondary to prostate cancer and metastases to the bone. We've been working pain control with Fentanyl, Dilaudid and oxycodone. He was able to take some oxycodone yesterday, but he is unsure if that helped or not. We'll currently waiting on placement to group home. Once he goes to the group home. he'll be on hospice care. patient has been stable, no difficulty with eating or drinking,pain is under decent control at the moment.. Denies any chest pain, shortness breath, abdominal pain. He still endorses the left leg and hip pain. - Patient Data Vitals - Most Recent: Last Vital Signs Temp 37.1 C 05/08/18 11:59 Pulse 113 H 05/08/18 11:59 Resp 20 05/08/18 11:59 BP 104/54 L 05/08/18 11:59 Pulse Ox 93 L 05/08/18 11:59 Weight - Most Recent: 111.5 kg I&O - Last 24 Hours: Intake & Output 05/07/18 05/08/18 05/08/18 22:59 06:59 14:59 Intake Total 600 650 Output Total 107 Balance 600 543 Med Orders - Current: Current Medications Albuterol (Ventolin Hfa) 8 gm INH Q6HRRT PRN PRN Reason: Wheezing Last Admin: 05/05/18 04:30 Dose: 1 dose Calcium Carbonate/Glycine (Tums) 1,000 mg PO DAILY [facility] Last Admin: 05/08/18 09:13 Dose: 1,000 mg Cholecalciferol (Vitamin D3) 3,000 units PO DAILY [facility] Last Admin: 05/08/18 09:13 Dose: 3,000 units Docusate Sodium (Colace) 100 mg PO DAILY [facility] Last Admin: 05/08/18 09:13 Dose: 100 mg Enoxaparin Sodium (Lovenox) 40 mg SUBCUT Q24H [facility] Last Admin: 05/07/18 16:06 Dose: 40 mg Fentanyl (Duragesic) 50 mcg TOP Q72H [facility] Last Admin: 05/08/18 12:03 Dose: 50 mcg Gabapentin (Neurontin) 300 mg PO TID [facility] Last Admin: 05/08/18 05:04 Dose: 300 mg Hydromorphone HCl (Dilaudid) 2 mg IVPUSH Q2H PRN PRN Reason: Pain Last Admin: 05/08/18 10:16 Dose: 2 mg Levofloxacin/Dextrose 750 mg/ (Premix) 150 mls @ 100 mls/hr IV Q24H [facility] Last Admin: 05/08/18 09:14 Dose: 100 mls/hr Losartan Potassium (Cozaar) 100 mg PO DAILY [facility] Last Admin: 05/08/18 09:16 Dose: Not Given Nystatin (Nystop) 0 gm TOP TID [facility] Last Admin: 05/08/18 06:26 Dose: 1 applic Omeprazole (Omeprazole) 20 mg PO ACBREAKFAST [facility] Last Admin: 05/08/18 06:29 Dose: 20 mg Ondansetron HCl (Zofran) 4 mg IVPUSH Q4H PRN PRN Reason: Nausea/Vomiting Last Admin: 05/01/18 06:32 Dose: 4 mg Oxycodone HCl (Oxycodone) 5 mg PO Q4H PRN PRN Reason: Pain Last Admin: 05/08/18 11:10 Dose: 5 mg Zpl874/Iron Fumarate /Fa/Dss [ 19 Tablet] 1 Tab 1 each PO DAILY [facility] Last Admin: 05/08/18 09:15 Dose: Not Given Polyethylene Glycol (Miralax) 17 gm PO DAILY [facility] Last Admin: 05/08/18 09:13 Dose: 17 gm Prednisone (Prednisone) 5 mg PO BIDMEALS [facility] Last Admin: 05/08/18 09:13 Dose: 5 mg Prochlorperazine Maleate (Compazine) 10 mg PO Q6H PRN PRN Reason: Nausea Discontinued Medications Fentanyl (Duragesic) 25 mcg TOP Q72H [facility] Last Admin: 05/01/18 08:16 Dose: 25 mcg Heparin Sodium (Porcine) (Heparin Lock Flush 100 Units/Ml) 500 units FLUSH ONETIME ONE Stop: 04/28/18 14:28 Last Admin: 04/28/18 15:40 Dose: 500 units Hydromorphone HCl (Dilaudid) 2 mg IVPUSH Q4H PRN PRN Reason: Pain Last Admin: 05/03/18 17:27 Dose: 2 mg Vancomycin HCl 1,250 mg/ (Sodium Chloride) 250 mls @ 166.667 mls/hr IV Q8H [facility] Last Admin: 04/30/18 08:37 Dose: 166 mls/hr Clindamycin Phosphate 600 mg/ (Premix) 50 mls @ 100 mls/hr IV Q6H [facility] Last Admin: 04/30/18 13:56 Dose: Not Given Clindamycin Phosphate 600 mg/ (Premix) 50 mls @ 100 mls/hr IV Q6H [facility] Last Admin: 05/01/18 07:05 Dose: 100 mls/hr Potassium Chloride (Klor-Con 8) 8 meq PO BID [facility] Last Admin: 05/01/18 09:45 Dose: 8 meq Vancomycin HCl (Pharmacy To Dose - Vancomycin) 1 dose .XX ASDIRECTED [facility] - Exam General: Alert, Oriented, Cooperative Lungs: Clear to Auscultation, Normal Respiratory Effort Cardiovascular: Regular Rate, Regular Rhythm Extremities: Limited Range of Motion - Problem List Review Problem List Initiated/Reviewed/Updated: Yes - Plan Plan:: 1. Intractable Pain secondary to prostate cancer and mets to the bone- Continue working on pain control with fentanyl patch and Dilaudid and oxycodone. Hospice will see him once he gets established in a group home. Case management received the financial/medicaid information and are working on placement. Patient did switch his code status to DNR/DNI and decided to go with hospice care. We will continue on current management until hospice does their intake in the group home. 2. Left greater trochanter wound growing S. Aurues as well as Pseudomonas, sensitive to levofloxacin- Patient continued on Levaquin 3. Chronic normocytic anemia s/p transfusion- no longer monitoring labs due to hospice status. 4. PMH- asthma, HTN, GERD, RA- continue home medications.
[2018-05-08] MEDS: Enoxaparin 40 MG/0.4 ML Syringe SUBCUT SCH (16:14)
[2018-05-09] MEDS: HYDROmorphone 2 MG/ML SDV IVPUSH PRN ×8 (00:59→23:00)
[2018-05-09] MEDS: Nystatin Topical Powder 15 GM Bottle TOP SCH ×3 (06:25→21:04)
[2018-05-09] MEDS: Gabapentin 300 MG Cap PO SCH ×3 (06:25→21:04)
[2018-05-09] MEDS: Omeprazole 20 MG Cap.CR PO SCH (06:29)
[2018-05-09] MEDS: Docusate Sodium 100 MG Cap PO SCH (09:22)
[2018-05-09] MEDS: Cholecalciferol (Vitamin D3) 1,000 Unit Tab PO SCH (09:23)
[2018-05-09] MEDS: predniSONE 5 MG Tab PO SCH ×2 (09:23→17:19)
[2018-05-09] MEDS: Polyethylene Glycol 3350 Powder 17 GM Packet PO SCH (09:23)
[2018-05-09] MEDS: Levofloxacin/Dextrose 5%-Water 750 MG in Premix Bag 1 BAG IV SCH (09:24)
[2018-05-09] MEDS: Calcium Carbonate 500 MG Tab.Chew PO SCH (09:25)
[2018-05-09] MEDS: Losartan 50 MG Tab PO SCH (09:26)
[2018-05-09] MEDS: [UNRECOGNIZED DRUG - OTHER] PO SCH (10:33)
[2018-05-09] MEDS: IRON FUMARATE PO SCH (10:33)
[2018-05-09] MEDS: DSS PO SCH (10:33)
--- NOTE | 2018-05-09 13:33 | PCM.PN ---
- General Info Date of Service: 05/09/18 - Review of Systems Systems Review Comment:: does have blood and pus coming from left hip wound - Patient Data Vitals - Most Recent: Last Vital Signs Temp 37.5 C 05/09/18 12:00 Pulse 102 H 05/09/18 12:00 Resp 20 05/09/18 12:00 BP 99/58 L 05/09/18 12:00 Pulse Ox 96 05/09/18 12:00 Weight - Most Recent: 111.5 kg I&O - Last 24 Hours: Intake & Output 05/08/18 05/09/18 05/09/18 22:59 06:59 14:59 Intake Total 640 540 Balance 640 540 Med Orders - Current: Current Medications Albuterol (Ventolin Hfa) 8 gm INH Q6HRRT PRN PRN Reason: Wheezing Last Admin: 05/05/18 04:30 Dose: 1 dose Calcium Carbonate/Glycine (Tums) 1,000 mg PO DAILY [facility] Last Admin: 05/09/18 09:25 Dose: 1,000 mg Cholecalciferol (Vitamin D3) 3,000 units PO DAILY [facility] Last Admin: 05/09/18 09:23 Dose: 3,000 units Docusate Sodium (Colace) 100 mg PO DAILY [facility] Last Admin: 05/09/18 09:22 Dose: 100 mg Fentanyl (Duragesic) 50 mcg TOP Q72H [facility] Last Admin: 05/08/18 12:03 Dose: 50 mcg Gabapentin (Neurontin) 300 mg PO TID [facility] Last Admin: 05/09/18 06:25 Dose: 300 mg Hydromorphone HCl (Dilaudid) 2 mg IVPUSH Q2H PRN PRN Reason: Pain Last Admin: 05/09/18 12:13 Dose: 2 mg Levofloxacin/Dextrose 750 mg/ (Premix) 150 mls @ 100 mls/hr IV Q24H [facility] Last Admin: 05/09/18 09:24 Dose: 100 mls/hr Losartan Potassium (Cozaar) 100 mg PO DAILY [facility] Last Admin: 05/09/18 09:26 Dose: Not Given Nystatin (Nystop) 0 gm TOP TID [facility] Last Admin: 05/09/18 06:25 Dose: 1 applic Omeprazole (Omeprazole) 20 mg PO ACBREAKFAST [facility] Last Admin: 05/09/18 06:29 Dose: 20 mg Ondansetron HCl (Zofran) 4 mg IVPUSH Q4H PRN PRN Reason: Nausea/Vomiting Last Admin: 05/01/18 06:32 Dose: 4 mg Oxycodone HCl (Oxycodone) 5 mg PO Q4H PRN PRN Reason: Pain Last Admin: 05/08/18 23:10 Dose: 5 mg [id number]/Iron Fumarate /Fa/Dss [ 19 Tablet] 1 Tab 1 each PO DAILY [facility] Last Admin: 05/09/18 10:33 Dose: Not Given Polyethylene Glycol (Miralax) 17 gm PO DAILY [facility] Last Admin: 05/09/18 09:23 Dose: 17 gm Prednisone (Prednisone) 5 mg PO BIDMEALS [facility] Last Admin: 05/09/18 09:23 Dose: 5 mg Prochlorperazine Maleate (Compazine) 10 mg PO Q6H PRN PRN Reason: Nausea Discontinued Medications Enoxaparin Sodium (Lovenox) 40 mg SUBCUT Q24H [facility] Last Admin: 05/08/18 16:14 Dose: 40 mg Fentanyl (Duragesic) 25 mcg TOP Q72H [facility] Last Admin: 05/01/18 08:16 Dose: 25 mcg Heparin Sodium (Porcine) (Heparin Lock Flush 100 Units/Ml) 500 units FLUSH ONETIME ONE Stop: 04/28/18 14:28 Last Admin: 04/28/18 15:40 Dose: 500 units Hydromorphone HCl (Dilaudid) 2 mg IVPUSH Q4H PRN PRN Reason: Pain Last Admin: 05/03/18 17:27 Dose: 2 mg Vancomycin HCl 1,250 mg/ (Sodium Chloride) 250 mls @ 166.667 mls/hr IV Q8H [facility] Last Admin: 04/30/18 08:37 Dose: 166 mls/hr Clindamycin Phosphate 600 mg/ (Premix) 50 mls @ 100 mls/hr IV Q6H [facility] Last Admin: 04/30/18 13:56 Dose: Not Given Clindamycin Phosphate 600 mg/ (Premix) 50 mls @ 100 mls/hr IV Q6H [facility] Last Admin: 05/01/18 07:05 Dose: 100 mls/hr Potassium Chloride (Klor-Con 8) 8 meq PO BID [facility] Last Admin: 05/01/18 09:45 Dose: 8 meq Vancomycin HCl (Pharmacy To Dose - Vancomycin) 1 dose .XX ASDIRECTED [facility] - Exam General: Alert, Cooperative Neck: Supple Lungs: Clear to Auscultation, Normal Respiratory Effort Cardiovascular: Regular Rate, Regular Rhythm Extremities: No Pedal Edema - Problem List Review Problem List Initiated/Reviewed/Updated: Yes - Plan Plan:: 62 yo male admitted for pain managment of extensive metastatic prostate cancer. We will continue fentanyl, dilaudid and oxycodone. Plan is to discharge to [facility] on hospice when bed is available.
[2018-05-09] MEDS: oxyCODONE 5 MG Tab PO PRN (21:04)
[2018-05-10] MEDS: HYDROmorphone 2 MG/ML SDV IVPUSH PRN ×8 (05:53→22:21)
[2018-05-10] MEDS: Gabapentin 300 MG Cap PO SCH ×3 (05:53→21:51)
[2018-05-10] MEDS: Nystatin Topical Powder 15 GM Bottle TOP SCH ×3 (06:46→22:06)
[2018-05-10] MEDS: Omeprazole 20 MG Cap.CR PO SCH (06:46)
[2018-05-10] MEDS: Polyethylene Glycol 3350 Powder 17 GM Packet PO SCH (08:29)
[2018-05-10] MEDS: Docusate Sodium 100 MG Cap PO SCH (08:32)
[2018-05-10] MEDS: Levofloxacin/Dextrose 5%-Water 750 MG in Premix Bag 1 BAG IV SCH (08:32)
[2018-05-10] MEDS: Cholecalciferol (Vitamin D3) 1,000 Unit Tab PO SCH (08:32)
[2018-05-10] MEDS: Calcium Carbonate 500 MG Tab.Chew PO SCH (08:32)
[2018-05-10] MEDS: oxyCODONE 5 MG Tab PO PRN ×3 (08:33→20:26)
[2018-05-10] MEDS: predniSONE 5 MG Tab PO SCH ×2 (08:33→17:16)
[2018-05-10] MEDS: [UNRECOGNIZED DRUG - OTHER] PO SCH (08:45)
[2018-05-10] MEDS: DSS PO SCH (08:45)
[2018-05-10] MEDS: IRON FUMARATE PO SCH (08:45)
[2018-05-10] MEDS: Losartan 50 MG Tab PO SCH (08:46)
--- NOTE | 2018-05-10 10:29 | PCM.PN ---
- General Info Date of Service: 05/10/18 - Review of Systems Systems Review Comment:: reports leg pain - Patient Data Vitals - Most Recent: Last Vital Signs Temp 36.6 C 05/10/18 08:00 Pulse 106 H 05/10/18 08:00 Resp 18 05/10/18 04:00 BP 95/54 L 05/10/18 08:46 Pulse Ox 93 L 05/10/18 08:00 Weight - Most Recent: 111.5 kg I&O - Last 24 Hours: Intake & Output 05/09/18 05/10/18 05/10/18 22:59 06:59 14:59 Intake Total 630 420 Balance 630 420 Med Orders - Current: Current Medications Albuterol (Ventolin Hfa) 8 gm INH Q6HRRT PRN PRN Reason: Wheezing Last Admin: 05/05/18 04:30 Dose: 1 dose Calcium Carbonate/Glycine (Tums) 1,000 mg PO DAILY [facility] Last Admin: 05/10/18 08:32 Dose: 1,000 mg Cholecalciferol (Vitamin D3) 3,000 units PO DAILY [facility] Last Admin: 05/10/18 08:32 Dose: 3,000 units Docusate Sodium (Colace) 100 mg PO DAILY [facility] Last Admin: 05/10/18 08:32 Dose: 100 mg Fentanyl (Duragesic) 50 mcg TOP Q72H [facility] Last Admin: 05/08/18 12:03 Dose: 50 mcg Gabapentin (Neurontin) 300 mg PO TID [facility] Last Admin: 05/10/18 05:53 Dose: 300 mg Hydromorphone HCl (Dilaudid) 2 mg IVPUSH Q1H PRN PRN Reason: Pain Levofloxacin/Dextrose 750 mg/ (Premix) 150 mls @ 100 mls/hr IV Q24H [facility] Last Admin: 05/10/18 08:32 Dose: 100 mls/hr Losartan Potassium (Cozaar) 100 mg PO DAILY [facility] Last Admin: 05/10/18 08:46 Dose: Not Given Nystatin (Nystop) 0 gm TOP TID [facility] Last Admin: 05/10/18 06:46 Dose: 1 applic Omeprazole (Omeprazole) 20 mg PO ACBREAKFAST [facility] Last Admin: 05/10/18 06:46 Dose: 20 mg Ondansetron HCl (Zofran) 4 mg IVPUSH Q4H PRN PRN Reason: Nausea/Vomiting Last Admin: 05/01/18 06:32 Dose: 4 mg Oxycodone HCl (Oxycodone) 10 mg PO Q4H PRN PRN Reason: Pain [id number]/Iron Fumarate /Fa/Dss [ 19 Tablet] 1 Tab 1 each PO DAILY [facility] Last Admin: 05/10/18 08:45 Dose: Not Given Polyethylene Glycol (Miralax) 17 gm PO DAILY [facility] Last Admin: 05/10/18 08:29 Dose: 17 gm Prednisone (Prednisone) 5 mg PO BIDMEALS [facility] Last Admin: 05/10/18 08:33 Dose: 5 mg Prochlorperazine Maleate (Compazine) 10 mg PO Q6H PRN PRN Reason: Nausea Discontinued Medications Enoxaparin Sodium (Lovenox) 40 mg SUBCUT Q24H [facility] Last Admin: 05/08/18 16:14 Dose: 40 mg Fentanyl (Duragesic) 25 mcg TOP Q72H [facility] Last Admin: 05/01/18 08:16 Dose: 25 mcg Heparin Sodium (Porcine) (Heparin Lock Flush 100 Units/Ml) 500 units FLUSH ONETIME ONE Stop: 04/28/18 14:28 Last Admin: 04/28/18 15:40 Dose: 500 units Hydromorphone HCl (Dilaudid) 2 mg IVPUSH Q4H PRN PRN Reason: Pain Last Admin: 05/03/18 17:27 Dose: 2 mg Hydromorphone HCl (Dilaudid) 2 mg IVPUSH Q2H PRN PRN Reason: Pain Last Admin: 05/10/18 08:54 Dose: 2 mg Vancomycin HCl 1,250 mg/ (Sodium Chloride) 250 mls @ 166.667 mls/hr IV Q8H [facility] Last Admin: 04/30/18 08:37 Dose: 166 mls/hr Clindamycin Phosphate 600 mg/ (Premix) 50 mls @ 100 mls/hr IV Q6H [facility] Last Admin: 04/30/18 13:56 Dose: Not Given Clindamycin Phosphate 600 mg/ (Premix) 50 mls @ 100 mls/hr IV Q6H [facility] Last Admin: 05/01/18 07:05 Dose: 100 mls/hr Oxycodone HCl (Oxycodone) 5 mg PO Q4H PRN PRN Reason: Pain Last Admin: 05/10/18 08:33 Dose: 5 mg Potassium Chloride (Klor-Con 8) 8 meq PO BID [facility] Last Admin: 05/01/18 09:45 Dose: 8 meq Vancomycin HCl (Pharmacy To Dose - Vancomycin) 1 dose .XX ASDIRECTED [facility] - Exam General: Alert, Severe Distress Neck: Supple Lungs: Clear to Auscultation, Normal Respiratory Effort Cardiovascular: Regular Rate, Regular Rhythm GI/Abdominal Exam: Normal Bowel Sounds, Soft, Non-Tender Extremities: Non-Tender, No Pedal Edema - Problem List Review Problem List Initiated/Reviewed/Updated: Yes - My Orders Last 24 Hours: My Active Orders 05/10/18 10:03 HYDROmorphone [Dilaudid] 2 mg IVPUSH Q1H PRN oxyCODONE 10 mg PO Q4H PRN - Plan Plan:: 62 yo male admitted for pain managment of extensive metastatic prostate cancer. We will continue fentanyl, dilaudid and oxycodone. Will increase frequency of dilaudid and dosing of oxycodone to get better pain controll. Plan is to discharge to SNF on hospice when bed is available.
[2018-05-10] MEDS: Albuterol 8 GM Inhaler INH PRN (10:45)
[2018-05-11] MEDS: oxyCODONE 5 MG Tab PO PRN ×3 (03:20→13:12)
[2018-05-11] MEDS: HYDROmorphone 2 MG/ML SDV IVPUSH PRN ×6 (04:48→21:09)
[2018-05-11] MEDS: Gabapentin 300 MG Cap PO SCH ×2 (06:28→13:25)
[2018-05-11] MEDS: Nystatin Topical Powder 15 GM Bottle TOP SCH ×2 (06:29→13:25)
[2018-05-11] MEDS: Omeprazole 20 MG Cap.CR PO SCH (06:30)
[2018-05-11] MEDS: Cholecalciferol (Vitamin D3) 1,000 Unit Tab PO SCH (08:13)
[2018-05-11] MEDS: Docusate Sodium 100 MG Cap PO SCH (08:15)
[2018-05-11] MEDS: Losartan 50 MG Tab PO SCH (08:15)
[2018-05-11] MEDS: Levofloxacin/Dextrose 5%-Water 750 MG in Premix Bag 1 BAG IV SCH (08:15)
[2018-05-11] MEDS: Polyethylene Glycol 3350 Powder 17 GM Packet PO SCH (08:15)
[2018-05-11] MEDS: predniSONE 5 MG Tab PO SCH ×2 (08:15→16:52)
[2018-05-11] MEDS: IRON FUMARATE PO SCH (08:16)
[2018-05-11] MEDS: Calcium Carbonate 500 MG Tab.Chew PO SCH (08:16)
[2018-05-11] MEDS: [UNRECOGNIZED DRUG - OTHER] PO SCH (08:16)
[2018-05-11] MEDS: DSS PO SCH (08:16)
[2018-05-11] MEDS: fentaNYL 50 MCG/HR Transdermal Patch TOP SCH (09:58)
--- NOTE | 2018-05-11 10:39 | PCM.PN ---
- General Info Date of Service: 05/11/18 - Review of Systems Systems Review Comment:: reports pain in the leg - Patient Data Vitals - Most Recent: Last Vital Signs Temp 37.9 C 05/11/18 08:11 Pulse 113 H 05/11/18 08:11 Resp 16 05/11/18 08:11 BP 111/60 05/11/18 08:15 Pulse Ox 95 05/11/18 08:11 Weight - Most Recent: 111.5 kg I&O - Last 24 Hours: Intake & Output 05/10/18 05/11/18 05/11/18 22:59 06:59 14:59 Intake Total 450 400 150 Balance 450 400 150 Med Orders - Current: Current Medications Albuterol (Ventolin Hfa) 8 gm INH Q6HRRT PRN PRN Reason: Wheezing Last Admin: 05/10/18 10:45 Dose: 1 dose Calcium Carbonate/Glycine (Tums) 1,000 mg PO DAILY [facility] Last Admin: 05/11/18 08:16 Dose: 1,000 mg Cholecalciferol (Vitamin D3) 3,000 units PO DAILY [facility] Last Admin: 05/11/18 08:13 Dose: 3,000 units Docusate Sodium (Colace) 100 mg PO DAILY [facility] Last Admin: 05/11/18 08:15 Dose: 100 mg Fentanyl (Duragesic) 50 mcg TOP Q72H [facility] Last Admin: 05/11/18 09:58 Dose: 50 mcg Gabapentin (Neurontin) 300 mg PO TID [facility] Last Admin: 05/11/18 06:28 Dose: 300 mg Hydromorphone HCl (Dilaudid) 2 mg IVPUSH Q1H PRN PRN Reason: Pain Last Admin: 05/11/18 10:00 Dose: 2 mg Levofloxacin/Dextrose 750 mg/ (Premix) 150 mls @ 100 mls/hr IV Q24H [facility] Last Admin: 05/11/18 08:15 Dose: 100 mls/hr Losartan Potassium (Cozaar) 100 mg PO DAILY [facility] Last Admin: 05/11/18 08:15 Dose: 100 mg Nystatin (Nystop) 0 gm TOP TID [facility] Last Admin: 05/11/18 06:29 Dose: 1 applic Omeprazole (Omeprazole) 20 mg PO ACBREAKFAST [facility] Last Admin: 05/11/18 06:30 Dose: 20 mg Ondansetron HCl (Zofran) 4 mg IVPUSH Q4H PRN PRN Reason: Nausea/Vomiting Last Admin: 05/01/18 06:32 Dose: 4 mg Oxycodone HCl (Oxycodone) 10 mg PO Q4H PRN PRN Reason: Pain Last Admin: 05/11/18 08:14 Dose: 10 mg [id number]/Iron Fumarate /Fa/Dss [ 19 Tablet] 1 Tab 1 each PO DAILY [facility] Last Admin: 05/11/18 08:16 Dose: Not Given Polyethylene Glycol (Miralax) 17 gm PO DAILY [facility] Last Admin: 05/11/18 08:15 Dose: 17 gm Prednisone (Prednisone) 5 mg PO BIDMEALS [facility] Last Admin: 05/11/18 08:15 Dose: 5 mg Prochlorperazine Maleate (Compazine) 10 mg PO Q6H PRN PRN Reason: Nausea Discontinued Medications Enoxaparin Sodium (Lovenox) 40 mg SUBCUT Q24H [facility] Last Admin: 05/08/18 16:14 Dose: 40 mg Fentanyl (Duragesic) 25 mcg TOP Q72H [facility] Last Admin: 05/01/18 08:16 Dose: 25 mcg Heparin Sodium (Porcine) (Heparin Lock Flush 100 Units/Ml) 500 units FLUSH ONETIME ONE Stop: 04/28/18 14:28 Last Admin: 04/28/18 15:40 Dose: 500 units Hydromorphone HCl (Dilaudid) 2 mg IVPUSH Q4H PRN PRN Reason: Pain Last Admin: 05/03/18 17:27 Dose: 2 mg Hydromorphone HCl (Dilaudid) 2 mg IVPUSH Q2H PRN PRN Reason: Pain Last Admin: 05/10/18 08:54 Dose: 2 mg Vancomycin HCl 1,250 mg/ (Sodium Chloride) 250 mls @ 166.667 mls/hr IV Q8H [facility] Last Admin: 04/30/18 08:37 Dose: 166 mls/hr Clindamycin Phosphate 600 mg/ (Premix) 50 mls @ 100 mls/hr IV Q6H [facility] Last Admin: 04/30/18 13:56 Dose: Not Given Clindamycin Phosphate 600 mg/ (Premix) 50 mls @ 100 mls/hr IV Q6H [facility] Last Admin: 05/01/18 07:05 Dose: 100 mls/hr Oxycodone HCl (Oxycodone) 5 mg PO Q4H PRN PRN Reason: Pain Last Admin: 05/10/18 08:33 Dose: 5 mg Potassium Chloride (Klor-Con 8) 8 meq PO BID [facility] Last Admin: 05/01/18 09:45 Dose: 8 meq Vancomycin HCl (Pharmacy To Dose - Vancomycin) 1 dose .XX ASDIRECTED [facility] - Exam General: Alert, Oriented Neck: Supple Lungs: Clear to Auscultation, Normal Respiratory Effort Cardiovascular: Regular Rate, Regular Rhythm GI/Abdominal Exam: Normal Bowel Sounds, Soft, Non-Tender Neurological: No New Focal Deficit - Problem List Review Problem List Initiated/Reviewed/Updated: Yes - My Orders Last 24 Hours: My Active Orders 05/10/18 10:03 HYDROmorphone [Dilaudid] 2 mg IVPUSH Q1H PRN oxyCODONE 10 mg PO Q4H PRN 05/10/18 12:03 Vital Signs [RC] 09,21 - Plan Plan:: 62 yo male admitted for pain managment of extensive metastatic prostate cancer. We will continue fentanyl, dilaudid and oxycodone. Continue palliative care orders. Plan is to discharge to SNF on hospice when bed is available.
[2018-05-12] MEDS: oxyCODONE 5 MG Tab PO PRN ×2 (01:17→17:58)
[2018-05-12] MEDS: Gabapentin 300 MG Cap PO SCH ×4 (01:17→22:06)
[2018-05-12] MEDS: HYDROmorphone 2 MG/ML SDV IVPUSH PRN ×5 (01:18→22:06)
[2018-05-12] MEDS: Nystatin Topical Powder 15 GM Bottle TOP SCH ×3 (02:48→14:52)
[2018-05-12] MEDS: Omeprazole 20 MG Cap.CR PO SCH ×2 (06:13→06:30)
[2018-05-12] MEDS: Docusate Sodium 100 MG Cap PO SCH (09:26)
[2018-05-12] MEDS: Polyethylene Glycol 3350 Powder 17 GM Packet PO SCH (09:26)
[2018-05-12] MEDS: predniSONE 5 MG Tab PO SCH ×2 (09:34→16:33)
[2018-05-12] MEDS: Levofloxacin/Dextrose 5%-Water 750 MG in Premix Bag 1 BAG IV SCH (09:35)
[2018-05-12] MEDS: Losartan 50 MG Tab PO SCH (09:35)
[2018-05-12] MEDS: Calcium Carbonate 500 MG Tab.Chew PO SCH (09:35)
[2018-05-12] MEDS: IRON FUMARATE PO SCH (09:37)
[2018-05-12] MEDS: DSS PO SCH (09:37)
[2018-05-12] MEDS: [UNRECOGNIZED DRUG - OTHER] PO SCH (09:37)
[2018-05-12] MEDS: Cholecalciferol (Vitamin D3) 1,000 Unit Tab PO SCH (09:37)
[2018-05-12] MEDS ORDERED: fentaNYL 50 MCG/HR Transdermal Patch TOP SCH (15:20)
--- NOTE | 2018-05-12 18:00 | PCM.PN ---
- General Info Date of Service: 05/12/18 Admission Dx/Problem (Free Text): Patient in bed , says his pain at rest is 2-3 , when he attempts to move his leg , pain gets 7-9 intensity. Awaiting hospice consult tomorrow Pain Score: 7 - Review of Systems General: Reports: Weakness HEENT: Reports: No Symptoms Pulmonary: Reports: No Symptoms Cardiovascular: Reports: No Symptoms Gastrointestinal: Reports: No Symptoms Genitourinary: Reports: No Symptoms Musculoskeletal: Reports: Leg Pain Skin: Reports: No Symptoms Neurological: Reports: No Symptoms Psychiatric: Reports: No Symptoms - Patient Data Vitals - Most Recent: Last Vital Signs Temp 97.9 F 05/12/18 09:00 Pulse 102 H 05/12/18 09:00 Resp 22 H 05/12/18 09:00 BP 87/52 L 05/12/18 09:35 Pulse Ox 96 05/12/18 09:00 Weight - Most Recent: 245 lb 13.047 oz I&O - Last 24 Hours: Intake & Output 05/12/18 05/12/18 05/12/18 06:59 14:59 22:59 Intake Total 480 500 Balance 480 500 Med Orders - Current: Current Medications Albuterol (Ventolin Hfa) 8 gm INH Q6HRRT PRN PRN Reason: Wheezing Last Admin: 05/10/18 10:45 Dose: 1 dose Aspirin (Aspirin) 325 mg PO DAILY [facility] Calcium Carbonate/Glycine (Tums) 1,000 mg PO DAILY [facility] Last Admin: 05/12/18 09:35 Dose: 1,000 mg Cholecalciferol (Vitamin D3) 3,000 units PO DAILY [facility] Last Admin: 05/12/18 09:37 Dose: 3,000 units Docusate Sodium (Colace) 100 mg PO DAILY [facility] Last Admin: 05/12/18 09:26 Dose: 100 mg Fentanyl (Duragesic) 75 mcg TOP Q72H [facility] Last Admin: 05/12/18 16:54 Dose: 75 mcg Gabapentin (Neurontin) 300 mg PO TID [facility] Last Admin: 05/12/18 14:48 Dose: 300 mg Hydromorphone HCl (Dilaudid) 2 mg IVPUSH Q1H PRN PRN Reason: Pain Last Admin: 05/12/18 14:48 Dose: 2 mg Levofloxacin/Dextrose 750 mg/ (Premix) 150 mls @ 100 mls/hr IV Q24H [facility] Last Admin: 05/12/18 09:35 Dose: 100 mls/hr Losartan Potassium (Cozaar) 100 mg PO DAILY [facility] Last Admin: 05/12/18 09:35 Dose: Not Given Nystatin (Nystop) 0 gm TOP TID [facility] Last Admin: 05/12/18 14:52 Dose: Not Given Omeprazole (Omeprazole) 20 mg PO ACBREAKFAST [facility] Last Admin: 05/12/18 06:30 Dose: 20 mg Ondansetron HCl (Zofran) 4 mg IVPUSH Q4H PRN PRN Reason: Nausea/Vomiting Last Admin: 05/01/18 06:32 Dose: 4 mg Oxycodone HCl (Oxycodone) 10 mg PO Q4H PRN PRN Reason: Pain Last Admin: 05/12/18 17:58 Dose: 10 mg [id number]/Iron Fumarate /Fa/Dss [ 19 Tablet] 1 Tab 1 each PO DAILY [facility] Last Admin: 05/12/18 09:37 Dose: Not Given Polyethylene Glycol (Miralax) 17 gm PO DAILY [facility] Last Admin: 05/12/18 09:26 Dose: 17 gm Prednisone (Prednisone) 5 mg PO BIDMEALS [facility] Last Admin: 05/12/18 16:33 Dose: 5 mg Prochlorperazine Maleate (Compazine) 10 mg PO Q6H PRN PRN Reason: Nausea Discontinued Medications Enoxaparin Sodium (Lovenox) 40 mg SUBCUT Q24H [facility] Last Admin: 05/08/18 16:14 Dose: 40 mg Fentanyl (Duragesic) 25 mcg TOP Q72H [facility] Last Admin: 05/01/18 08:16 Dose: 25 mcg Fentanyl (Duragesic) 50 mcg TOP Q72H [facility] Last Admin: 05/11/18 09:58 Dose: 50 mcg Heparin Sodium (Porcine) (Heparin Lock Flush 100 Units/Ml) 500 units FLUSH ONETIME ONE Stop: 04/28/18 14:28 Last Admin: 04/28/18 15:40 Dose: 500 units Hydromorphone HCl (Dilaudid) 2 mg IVPUSH Q4H PRN PRN Reason: Pain Last Admin: 05/03/18 17:27 Dose: 2 mg Hydromorphone HCl (Dilaudid) 2 mg IVPUSH Q2H PRN PRN Reason: Pain Last Admin: 05/10/18 08:54 Dose: 2 mg Vancomycin HCl 1,250 mg/ (Sodium Chloride) 250 mls @ 166.667 mls/hr IV Q8H [facility] Last Admin: 04/30/18 08:37 Dose: 166 mls/hr Clindamycin Phosphate 600 mg/ (Premix) 50 mls @ 100 mls/hr IV Q6H [facility] Last Admin: 04/30/18 13:56 Dose: Not Given Clindamycin Phosphate 600 mg/ (Premix) 50 mls @ 100 mls/hr IV Q6H [facility] Last Admin: 05/01/18 07:05 Dose: 100 mls/hr Oxycodone HCl (Oxycodone) 5 mg PO Q4H PRN PRN Reason: Pain Last Admin: 05/10/18 08:33 Dose: 5 mg Potassium Chloride (Klor-Con 8) 8 meq PO BID [facility] Last Admin: 05/01/18 09:45 Dose: 8 meq Vancomycin HCl (Pharmacy To Dose - Vancomycin) 1 dose .XX ASDIRECTED [facility] - Exam General: Alert, Oriented HEENT: Mucous Membr. 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 SNOMED Code(s): 008405010 Code(s): C49.22 - MALIG NEOPLM OF CONN AND SOFT TISS OF LEFT LOW LIMB, INC HIP Status: Acute Current Visit: Yes (2) Prostate cancer metastatic to bone SNOMED Code(s): 13956784 Code(s): C61 - MALIGNANT NEOPLASM OF PROSTATE; C79.51 - SECONDARY MALIGNANT NEOPLASM OF BONE Status: Acute Current Visit: No - Problem List Review Problem List Initiated/Reviewed/Updated: Yes - My Orders Last 24 Hours: My Active Orders 05/12/18 15:20 fentaNYL [Duragesic] 75 mcg TOP Q72H 05/13/18 09:00 Aspirin 325 mg PO DAILY - Plan Plan:: 62 yo male admitted for pain managment of extensive metastatic prostate cancer. Will increase fentanyl to 75 mcq q 72 h , dilaudid 2 mg iv q 2 h prnand oxycodone 10 mg po q 4 h . Continue palliative care orders. Plan is to discharge to SNF on hospice when bed is available. For left thigh wound : levofloxacin 750 mg iv q 24 h
[2018-05-13] MEDS: Nystatin Topical Powder 15 GM Bottle TOP SCH ×5 (00:57→22:23)
[2018-05-13] MEDS: HYDROmorphone 2 MG/ML SDV IVPUSH PRN ×3 (05:09→12:10)
[2018-05-13] MEDS: Gabapentin 300 MG Cap PO SCH ×3 (05:10→22:16)
[2018-05-13 06:44] LABS: CHLORIDE,CL 97 mmol/L (98-107); SODIUM,NA 131 mmol/L (136-148)
[2018-05-13] MEDS: Polyethylene Glycol 3350 Powder 17 GM Packet PO SCH (09:12)
[2018-05-13] MEDS: Calcium Carbonate 500 MG Tab.Chew PO SCH (09:13)
[2018-05-13] MEDS: Aspirin 325 MG Tab PO SCH (09:14)
[2018-05-13] MEDS: Docusate Sodium 100 MG Cap PO SCH ×2 (09:14→20:41)
[2018-05-13] MEDS: Omeprazole 20 MG Cap.CR PO SCH (09:15)
[2018-05-13] MEDS: predniSONE 5 MG Tab PO SCH ×2 (09:15→16:24)
[2018-05-13] MEDS: Cholecalciferol (Vitamin D3) 1,000 Unit Tab PO SCH (09:15)
[2018-05-13] MEDS: Losartan 50 MG Tab PO SCH (09:16)
[2018-05-13] MEDS: Levofloxacin/Dextrose 5%-Water 750 MG in Premix Bag 1 BAG IV SCH (09:28)
[2018-05-13] MEDS: DSS PO SCH (10:48)
[2018-05-13] MEDS: [UNRECOGNIZED DRUG - OTHER] PO SCH (10:48)
[2018-05-13] MEDS: IRON FUMARATE PO SCH (10:48)
[2018-05-13] MEDS ORDERED: Lactated Ringers 500 ML IV SCH (14:45)
[2018-05-13] MEDS ORDERED: Polyethylene Glycol 3350 Powder 17 GM Packet PO PRN (18:39)
[2018-05-13] MEDS: fentaNYL 100 MCG/HR Transdermal Patch TOP SCH (19:02)
--- NOTE | 2018-05-13 19:09 | PCM.PN ---
- General Info Date of Service: 05/13/18 Subjective Update: Patient comfort measure , he is end stage prostate cancer , awaiting hospice placement when bed available. was hypotensive today after he received 2 mg of dilaudid iv and his medications were changed to Po - Review of Systems General: Reports: Weakness, Fatigue HEENT: Reports: No Symptoms Pulmonary: Reports: No Symptoms Cardiovascular: Reports: No Symptoms Gastrointestinal: Reports: No Symptoms Genitourinary: Reports: No Symptoms Musculoskeletal: Reports: Leg Pain, Other (left thigh swelling) Skin: Reports: No Symptoms Neurological: Reports: Confusion Psychiatric: Reports: Confusion - Patient Data Vitals - Most Recent: Last Vital Signs Temp 99.3 F 05/13/18 18:32 Pulse 112 H 05/13/18 18:32 Resp 20 05/13/18 18:32 BP 80/42 L 05/13/18 18:32 Pulse Ox 96 05/13/18 18:32 Weight - Most Recent: 245 lb 13.047 oz I&O - Last 24 Hours: Intake & Output 05/13/18 05/13/18 05/13/18 06:59 14:59 22:59 Intake Total 480 976 Balance 480 976 Lab Results Last 24 Hours: Laboratory Results - last 24 hr 05/13/18 05/13/18 Range/Units 06:00 06:00 WBC 21.66 H (4.0-11.0) K/uL RBC 2.76 L (4.50-5.90) M/uL Hgb 7.4 L (13.0-17.0) g/dL Hct 23.8 L (38.0-50.0) % MCV 86.2 (80.0-98.0) fL MCH 26.8 L (27.0-32.0) pg MCHC 31.1 (31.0-37.0) g/dL RDW Std Deviation 58.0 (28.0-62.0) fl RDW Coeff of [place] 19 H (11.0-15.0) % Plt Count 396 (150-400) K/uL MPV 8.10 (7.40-12.00) fL Nucleated RBC % 0.1 /100WBC Nucleated RBCs # 0 K/uL Sodium 131 L (136-148) mmol/L Potassium 5.3 H (3.5-5.1) mmol/L Chloride 97 L (98-107) mmol/L Carbon Dioxide 28.5 (21.0-32.0) mmol/L BUN 29 H (7.0-18.0) mg/dL Creatinine 1.2 (0.8-1.3) mg/dL Est Cr Clr Drug Dosing 63.83 mL/min Estimated GFR (MDRD) > 60.0 ml/min Glucose 125 H (74-106) mg/dL Calcium 8.3 L (8.5-10.1) mg/dL Total Bilirubin 0.6 (0.2-1.0) mg/dL AST 156 H (15-37) IU/L ALT 25 (14-63) IU/L Alkaline Phosphatase 325 H (46-116) U/L Total Protein 5.5 L (6.4-8.2) g/dL Albumin 1.7 L (3.4-5.0) g/dL Globulin 3.8 H (2.0-3.5) g/dL Albumin/Globulin Ratio 0.5 L (1.3-2.8) Med Orders - Current: Current Medications Albuterol (Ventolin Hfa) 8 gm INH Q6HRRT PRN PRN Reason: Wheezing Last Admin: 05/10/18 10:45 Dose: 1 dose Aspirin (Aspirin) 325 mg PO DAILY [facility] Last Admin: 05/13/18 09:14 Dose: 325 mg Calcium Carbonate/Glycine (Tums) 1,000 mg PO DAILY [facility] Last Admin: 05/13/18 09:13 Dose: 1,000 mg Cholecalciferol (Vitamin D3) 3,000 units PO DAILY [facility] Last Admin: 05/13/18 09:15 Dose: 3,000 units Docusate Sodium (Colace) 200 mg PO BID [facility] Fentanyl (Duragesic) 100 mcg TOP Q72H [facility] Last Admin: 05/13/18 19:02 Dose: 100 mcg Gabapentin (Neurontin) 300 mg PO TID [facility] Last Admin: 05/13/18 13:15 Dose: 300 mg Lactated Ringer's (Ringers, Lactated) 500 mls @ 999 mls/hr IV ASDIRECTED [facility] Last Admin: 05/13/18 14:46 Dose: 999 mls/hr Morphine Sulfate (Morphine 20 Mg/Ml Soln) 5 mg PO Q4H PRN PRN Reason: Pain Nystatin (Nystop) 0 gm TOP TID [facility] Last Admin: 05/13/18 13:15 Dose: Not Given Omeprazole (Omeprazole) 20 mg PO ACBREAKFAST [facility] Last Admin: 05/13/18 09:15 Dose: 20 mg Ondansetron HCl (Zofran) 4 mg IVPUSH Q4H PRN PRN Reason: Nausea/Vomiting Last Admin: 05/01/18 06:32 Dose: 4 mg [id number]/Iron Fumarate /Fa/Dss [ 19 Tablet] 1 Tab 1 each PO DAILY [facility] Last Admin: 05/13/18 10:48 Dose: Not Given Polyethylene Glycol (Miralax) 17 gm PO DAILY [facility] Last Admin: 05/13/18 09:12 Dose: 17 gm Polyethylene Glycol (Miralax) 17 gm PO BEDTIME PRN PRN Reason: Constipation Prednisone (Prednisone) 5 mg PO BIDMEALS [facility] Last Admin: 05/13/18 16:24 Dose: 5 mg Prochlorperazine Maleate (Compazine) 10 mg PO Q6H PRN PRN Reason: Nausea Discontinued Medications Docusate Sodium (Colace) 100 mg PO DAILY [facility] Last Admin: 05/13/18 09:14 Dose: 100 mg Enoxaparin Sodium (Lovenox) 40 mg SUBCUT Q24H [facility] Last Admin: 05/08/18 16:14 Dose: 40 mg Fentanyl (Duragesic) 25 mcg TOP Q72H [facility] Last Admin: 05/01/18 08:16 Dose: 25 mcg Fentanyl (Duragesic) 50 mcg TOP Q72H [facility] Last Admin: 05/11/18 09:58 Dose: 50 mcg Fentanyl (Duragesic) 75 mcg TOP Q72H [facility] Last Admin: 05/12/18 16:54 Dose: 75 mcg Heparin Sodium (Porcine) (Heparin Lock Flush 100 Units/Ml) 500 units FLUSH ONETIME ONE Stop: 04/28/18 14:28 Last Admin: 04/28/18 15:40 Dose: 500 units Hydromorphone HCl (Dilaudid) 2 mg IVPUSH Q4H PRN PRN Reason: Pain Last Admin: 05/03/18 17:27 Dose: 2 mg Hydromorphone HCl (Dilaudid) 2 mg IVPUSH Q2H PRN PRN Reason: Pain Last Admin: 05/10/18 08:54 Dose: 2 mg Hydromorphone HCl (Dilaudid) 2 mg IVPUSH Q1H PRN PRN Reason: Pain Last Admin: 05/13/18 12:10 Dose: 2 mg Vancomycin HCl 1,250 mg/ (Sodium Chloride) 250 mls @ 166.667 mls/hr IV Q8H [facility] Last Admin: 04/30/18 08:37 Dose: 166 mls/hr Clindamycin Phosphate 600 mg/ (Premix) 50 mls @ 100 mls/hr IV Q6H [facility] Last Admin: 04/30/18 13:56 Dose: Not Given Clindamycin Phosphate 600 mg/ (Premix) 50 mls @ 100 mls/hr IV Q6H [facility] Last Admin: 05/01/18 07:05 Dose: 100 mls/hr Levofloxacin/Dextrose 750 mg/ (Premix) 150 mls @ 100 mls/hr IV Q24H [facility] Last Admin: 05/13/18 09:28 Dose: Not Given Losartan Potassium (Cozaar) 100 mg PO DAILY [facility] Last Admin: 05/13/18 09:16 Dose: Not Given Oxycodone HCl (Oxycodone) 5 mg PO Q4H PRN PRN Reason: Pain Last Admin: 05/10/18 08:33 Dose: 5 mg Oxycodone HCl (Oxycodone) 10 mg PO Q4H PRN PRN Reason: Pain Last Admin: 05/12/18 17:58 Dose: 10 mg Potassium Chloride (Klor-Con 8) 8 meq PO BID [facility] Last Admin: 05/01/18 09:45 Dose: 8 meq Vancomycin HCl (Pharmacy To Dose - Vancomycin) 1 dose .XX ASDIRECTED [facility] - Exam General: Alert Neck: Supple, Trachea Midline Lungs: Clear to Auscultation Cardiovascular: Regular Rhythm, Tachycardia GI/Abdominal Exam: Normal Bowel Sounds, Non-Tender Back Exam: Normal Inspection Extremities: Leg Pain Skin: Warm, Dry Wound/Incisions: Drainage (bloody) Neurological: No New Focal Deficit Psy/Mental Status: Alert - Problem List & Annotations (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 SNOMED Code(s): 999867058 Code(s): C49.22 - MALIG NEOPLM OF CONN AND SOFT TISS OF LEFT LOW LIMB, INC HIP Status: Acute Current Visit: Yes (2) Prostate cancer metastatic to bone SNOMED Code(s): 69203608 Code(s): C61 - MALIGNANT NEOPLASM OF PROSTATE; C79.51 - SECONDARY MALIGNANT NEOPLASM OF BONE Status: Acute Current Visit: No - Problem List Review Problem List Initiated/Reviewed/Updated: Yes - My Orders Last 24 Hours: My Active Orders 05/13/18 09:00 Aspirin 325 mg PO DAILY 05/13/18 14:45 Lactated Ringers [Ringers, Lactated] 500 ml IV ASDIRECTED 05/13/18 18:38 Morphine [Morphine 20 MG/ML Soln] 5 mg PO Q4H PRN 05/13/18 18:39 Polyethylene Glycol 3350 [MiraLAX] 17 gm PO BEDTIME PRN 05/13/18 19:00 fentaNYL [Duragesic] 100 mcg TOP Q72H 05/13/18 21:00 Docusate Sodium [Colace] 200 mg PO BID - Plan Plan:: 62 yo male admitted for pain management of extensive metastatic prostate cancer. Will increase fentanyl to 100 mcq q 72 h ,d/c Dilaudid , d/c oxycodone , will start patient on morphine 5 mg po q 4 h prn for pain , collace 200 mg po BID , Miralx 30 cc daily prn for constipation. Continue palliative care orders. Plan is to discharge to SNF on hospice when bed is available. For left thigh wound - local dressing , d/c levofloxacin
[2018-05-13] MEDS: Albuterol 8 GM Inhaler INH PRN (21:48)
[2018-05-13] MEDS: Morphine Oral Concentrate 20 MG/ML 30 ML Bottle PO PRN (22:19)
[2018-05-14] MEDS: Gabapentin 300 MG Cap PO SCH ×3 (05:30→22:16)
[2018-05-14] MEDS: Nystatin Topical Powder 15 GM Bottle TOP SCH ×3 (05:31→22:17)
[2018-05-14] MEDS: Omeprazole 20 MG Cap.CR PO SCH (07:39)
[2018-05-14] MEDS: Calcium Carbonate 500 MG Tab.Chew PO SCH (09:17)
[2018-05-14] MEDS: Cholecalciferol (Vitamin D3) 1,000 Unit Tab PO SCH (09:18)
[2018-05-14] MEDS: Docusate Sodium 100 MG Cap PO SCH ×2 (09:18→20:49)
[2018-05-14] MEDS: Aspirin 325 MG Tab PO SCH (09:19)
[2018-05-14] MEDS: IRON FUMARATE PO SCH (09:19)
[2018-05-14] MEDS: DSS PO SCH (09:19)
[2018-05-14] MEDS: [UNRECOGNIZED DRUG - OTHER] PO SCH (09:19)
[2018-05-14] MEDS: predniSONE 5 MG Tab PO SCH ×2 (09:19→16:21)
[2018-05-14] MEDS: Polyethylene Glycol 3350 Powder 17 GM Packet PO SCH (09:20)
[2018-05-14] MEDS ORDERED: Sodium Chloride 0.9% 500 ML IV ONE (10:22)
[2018-05-14] MEDS: Albuterol 8 GM Inhaler INH PRN ×2 (13:21→21:48)
[2018-05-14] MEDS: Morphine Oral Concentrate 20 MG/ML 30 ML Bottle PO PRN ×2 (14:12→18:50)
[2018-05-14] MEDS ORDERED: Sodium Polystyrene Sulfonate 15 GM/60 ML Susp 60 ML Bot PO ONE (14:14)
[2018-05-14] MEDS ORDERED: Lactated Ringers 1,000 ML IV SCH (14:15)
[2018-05-14] MEDS ORDERED: Levofloxacin 250 MG Tab PO ONE (14:21)
--- NOTE | 2018-05-14 16:37 | PCM.PN ---
- General Info Date of Service: 05/14/18 Admission Dx/Problem (Free Text): Patient was hypotensive today in the 70" and sister and patient wanted to be transfused blood . Also to be restarted on antibiotics for his wound infection. - Review of Systems General: Reports: No Symptoms HEENT: Reports: No Symptoms Pulmonary: Reports: No Symptoms Cardiovascular: Reports: No Symptoms Gastrointestinal: Reports: No Symptoms Genitourinary: Reports: No Symptoms Musculoskeletal: Reports: No Symptoms Skin: Reports: Other (left tigh wound) Neurological: Reports: No Symptoms Psychiatric: Reports: No Symptoms - Patient Data Vitals - Most Recent: Last Vital Signs Temp 97.6 F 05/14/18 11:20 Pulse 115 H 05/14/18 11:20 Resp 20 05/14/18 11:20 BP 79/47 L 05/14/18 11:20 Pulse Ox 91 L 05/14/18 11:20 Weight - Most Recent: 245 lb 13.047 oz I&O - Last 24 Hours: Intake & Output 05/14/18 05/14/18 05/14/18 06:59 14:59 22:59 Intake Total 350 837 Output Total 153 0 Balance 197 837 Lab Results Last 24 Hours: Laboratory Results - last 24 hr 05/14/18 Range/Units 14:25 Blood Type A POSITIVE Antibody Screen NEGATIVE Crossmatch See Detail Med Orders - Current: Current Medications Albuterol (Ventolin Hfa) 8 gm INH Q6HRRT PRN PRN Reason: Wheezing Last Admin: 05/14/18 13:21 Dose: 2 dose Aspirin (Aspirin) 325 mg PO DAILY [facility] Last Admin: 05/14/18 09:19 Dose: 325 mg Calcium Carbonate/Glycine (Tums) 1,000 mg PO DAILY [facility] Last Admin: 05/14/18 09:17 Dose: 1,000 mg Cholecalciferol (Vitamin D3) 3,000 units PO DAILY [facility] Last Admin: 05/14/18 09:18 Dose: 3,000 units Docusate Sodium (Colace) 200 mg PO BID [facility] Last Admin: 05/14/18 09:18 Dose: 200 mg Fentanyl (Duragesic) 100 mcg TOP Q72H [facility] Last Admin: 05/13/18 19:02 Dose: 100 mcg Gabapentin (Neurontin) 300 mg PO TID [facility] Last Admin: 05/14/18 13:14 Dose: 300 mg Lactated Ringer's (Ringers, Lactated) 500 mls @ 999 mls/hr IV ASDIRECTED [facility] Last Admin: 05/13/18 14:46 Dose: 999 mls/hr Vancomycin HCl 1,500 mg/ (Sodium Chloride) 500 mls @ 333.333 mls/hr IV Q12H [facility] Last Admin: 05/14/18 15:21 Dose: 333.333 mls/hr Lactated Ringer's (Ringers, Lactated) 1,000 mls @ 999 mls/hr IV ASDIRECTED [facility] Morphine Sulfate (Morphine 20 Mg/Ml Soln) 5 mg PO Q4H PRN PRN Reason: Pain Last Admin: 05/14/18 14:12 Dose: 2 mg Nystatin (Nystop) 0 gm TOP TID [facility] Last Admin: 05/14/18 13:14 Dose: 1 applic Omeprazole (Omeprazole) 20 mg PO ACBREAKFAST [facility] Last Admin: 05/14/18 07:39 Dose: 20 mg Ondansetron HCl (Zofran) 4 mg IVPUSH Q4H PRN PRN Reason: Nausea/Vomiting Last Admin: 05/01/18 06:32 Dose: 4 mg Trv310/Iron Fumarate /Fa/Dss [ 19 Tablet] 1 Tab 1 each PO DAILY [facility] Last Admin: 05/14/18 09:19 Dose: Not Given Polyethylene Glycol (Miralax) 17 gm PO DAILY [facility] Last Admin: 05/14/18 09:20 Dose: Not Given Polyethylene Glycol (Miralax) 17 gm PO BEDTIME PRN PRN Reason: Constipation Prednisone (Prednisone) 5 mg PO BIDMEALS [facility] Last Admin: 05/14/18 16:21 Dose: 5 mg Prochlorperazine Maleate (Compazine) 10 mg PO Q6H PRN PRN Reason: Nausea Vancomycin HCl (Pharmacy To Dose - Vancomycin) 0 dose .XX ASDIRECTED [facility] Discontinued Medications Docusate Sodium (Colace) 100 mg PO DAILY [facility] Last Admin: 05/13/18 09:14 Dose: 100 mg Enoxaparin Sodium (Lovenox) 40 mg SUBCUT Q24H [facility] Last Admin: 05/08/18 16:14 Dose: 40 mg Fentanyl (Duragesic) 25 mcg TOP Q72H [facility] Last Admin: 05/01/18 08:16 Dose: 25 mcg Fentanyl (Duragesic) 50 mcg TOP Q72H [facility] Last Admin: 05/11/18 09:58 Dose: 50 mcg Fentanyl (Duragesic) 75 mcg TOP Q72H [facility] Last Admin: 05/12/18 16:54 Dose: 75 mcg Heparin Sodium (Porcine) (Heparin Lock Flush 100 Units/Ml) 500 units FLUSH ONETIME ONE Stop: 04/28/18 14:28 Last Admin: 04/28/18 15:40 Dose: 500 units Hydromorphone HCl (Dilaudid) 2 mg IVPUSH Q4H PRN PRN Reason: Pain Last Admin: 05/03/18 17:27 Dose: 2 mg Hydromorphone HCl (Dilaudid) 2 mg IVPUSH Q2H PRN PRN Reason: Pain Last Admin: 05/10/18 08:54 Dose: 2 mg Hydromorphone HCl (Dilaudid) 2 mg IVPUSH Q1H PRN PRN Reason: Pain Last Admin: 05/13/18 12:10 Dose: 2 mg Vancomycin HCl 1,250 mg/ (Sodium Chloride) 250 mls @ 166.667 mls/hr IV Q8H [facility] Last Admin: 04/30/18 08:37 Dose: 166 mls/hr Clindamycin Phosphate 600 mg/ (Premix) 50 mls @ 100 mls/hr IV Q6H [facility] Last Admin: 04/30/18 13:56 Dose: Not Given Clindamycin Phosphate 600 mg/ (Premix) 50 mls @ 100 mls/hr IV Q6H [facility] Last Admin: 05/01/18 07:05 Dose: 100 mls/hr Levofloxacin/Dextrose 750 mg/ (Premix) 150 mls @ 100 mls/hr IV Q24H [facility] Last Admin: 05/13/18 09:28 Dose: Not Given Sodium Chloride (Normal Saline) 500 mls @ 999 mls/hr IV ONETIME ONE Stop: 05/14/18 10:52 Last Admin: 05/14/18 10:34 Dose: 999 mls/hr Levofloxacin (Levaquin) 750 mg PO ONETIME ONE Stop: 05/14/18 14:22 Last Admin: 05/14/18 14:38 Dose: 750 mg Losartan Potassium (Cozaar) 100 mg PO DAILY [facility] Last Admin: 05/13/18 09:16 Dose: Not Given Oxycodone HCl (Oxycodone) 5 mg PO Q4H PRN PRN Reason: Pain Last Admin: 05/10/18 08:33 Dose: 5 mg Oxycodone HCl (Oxycodone) 10 mg PO Q4H PRN PRN Reason: Pain Last Admin: 05/12/18 17:58 Dose: 10 mg Potassium Chloride (Klor-Con 8) 8 meq PO BID [facility] Last Admin: 05/01/18 09:45 Dose: 8 meq Sodium Polystyrene Sulfonate (Kayexalate) 15 gm PO ONETIME ONE Stop: 05/14/18 14:15 Last Admin: 05/14/18 14:38 Dose: 15 gm Vancomycin HCl (Pharmacy To Dose - Vancomycin) 1 dose .XX ASDIRECTED [facility] - Exam General: Alert, Oriented HEENT: Pupils Equal, Pupils Reactive Neck: Supple, Trachea Midline, No JVD, No Thyromegaly Lungs: Clear to Auscultation Cardiovascular: Regular Rate, Regular Rhythm GI/Abdominal Exam: Normal Bowel Sounds, Soft, Non-Tender, No Organomegaly, No Distention Back Exam: Normal Inspection Extremities: Other (swelling of the left thigh , left thigh wound) - Problem List & Annotations (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 SNOMED Code(s): 263422504 Code(s): C49.22 - MALIG NEOPLM OF CONN AND SOFT TISS OF LEFT LOW LIMB, INC HIP Status: Acute Current Visit: Yes (2) Prostate cancer metastatic to bone SNOMED Code(s): 55612479 Code(s): C61 - MALIGNANT NEOPLASM OF PROSTATE; C79.51 - SECONDARY MALIGNANT NEOPLASM OF BONE Status: Acute Current Visit: No (3) Sepsis SNOMED Code(s): 22859722 Code(s): A41.9 - SEPSIS, UNSPECIFIED ORGANISM Status: Acute Current Visit : Yes (4) Anemia due to blood loss, chronic SNOMED Code(s): 294552057 Code(s): D50.0 - IRON DEFICIENCY ANEMIA SECONDARY TO BLOOD LOSS (CHRONIC) Status: Acute Current Visit: Yes - Problem List Review Problem List Initiated/Reviewed/Updated: Yes - My Orders Last 24 Hours: My Active Orders 05/13/18 18:38 Morphine [Morphine 20 MG/ML Soln] 5 mg PO Q4H PRN 05/13/18 18:39 Polyethylene Glycol 3350 [MiraLAX] 17 gm PO BEDTIME PRN 05/13/18 19:00 fentaNYL [Duragesic] 100 mcg TOP Q72H 05/13/18 21:00 Docusate Sodium [Colace] 200 mg PO BID 05/14/18 14:14 Transfuse PRBC [Transfuse Red Blood Cells] [COMM] Stat 05/14/18 14:15 Lactated Ringers [Ringers, Lactated] 1,000 ml IV ASDIRECTED Vancomycin Pharmacy to Dose [Pharmacy to Dose - Vancomycin] See Dose Instructions .XX ASDIRECTED 05/14/18 14:25 RED BLOOD CELLS LP [BBK] Routine TYPE AND SCREEN [BBK] Stat 05/14/18 15:00 Vancomycin 1,500 mg Sodium Chloride 0.9% [Normal Saline] 500 ml IV Q12H - Plan Plan:: 62 yo male admitted for pain management of extensive metastatic prostate cancer. Will increase fentanyl to 100 mcq q 72 h ,d/c Dilaudid , d/c oxycodone , will start patient on morphine 5 mg po q 4 h prn for pain , collace 200 mg po BID , Miralx 30 cc daily prn for constipation. . Plan is to discharge to SNF on hospice when bed is available.Patient still not yet evaluated by hospice For left thigh wound - local dressing , sepsis- will give patient IV fluids and will treat patient with Vancomycin iv and zosyn iv anemia due to blood loss - transfuse patient 1 unit of blood
[2018-05-14] MEDS: Piperacillin/Tazobactam 3.375 GM in Sodium Chloride 0.9% 50 ML IV SCH (20:43)
[2018-05-14] MEDS: Lactated Ringers 1,000 ML IV SCH (21:44)
[2018-05-15] MEDS: Morphine Oral Concentrate 20 MG/ML 30 ML Bottle PO PRN ×4 (02:22→20:43)
[2018-05-15] MEDS: Piperacillin/Tazobactam 3.375 GM in Sodium Chloride 0.9% 50 ML IV SCH ×3 (05:30→21:12)
[2018-05-15] MEDS: Gabapentin 300 MG Cap PO SCH ×3 (05:30→21:13)
[2018-05-15] MEDS: Nystatin Topical Powder 15 GM Bottle TOP SCH ×3 (05:34→21:15)
[2018-05-15] MEDS: Omeprazole 20 MG Cap.CR PO SCH (06:31)
[2018-05-15] MEDS: Docusate Sodium 100 MG Cap PO SCH ×2 (08:00→20:44)
[2018-05-15] MEDS: Cholecalciferol (Vitamin D3) 1,000 Unit Tab PO SCH (08:00)
[2018-05-15] MEDS: Calcium Carbonate 500 MG Tab.Chew PO SCH (08:01)
[2018-05-15] MEDS: predniSONE 5 MG Tab PO SCH ×2 (08:01→16:45)
[2018-05-15] MEDS: Aspirin 325 MG Tab PO SCH (08:04)
[2018-05-15] MEDS: DSS PO SCH (09:18)
[2018-05-15] MEDS: [UNRECOGNIZED DRUG - OTHER] PO SCH (09:18)
[2018-05-15] MEDS: IRON FUMARATE PO SCH (09:18)
[2018-05-15] MEDS: Polyethylene Glycol 3350 Powder 17 GM Packet PO SCH (09:18)
[2018-05-15] MEDS: Albuterol 8 GM Inhaler INH PRN (10:57)
[2018-05-15] MEDS: Lactated Ringers 1,000 ML IV SCH (12:50)
--- NOTE | 2018-05-15 22:19 | PCM.PN ---
- General Info Date of Service: 05/15/18 - Review of Systems General: Reports: No Symptoms HEENT: Reports: No Symptoms Pulmonary: Reports: Shortness of Breath Cardiovascular: Reports: No Symptoms Gastrointestinal: Reports: No Symptoms Genitourinary: Reports: No Symptoms Musculoskeletal: Reports: Leg Pain Skin: Reports: Jaundice, Pallor Neurological: Reports: No Symptoms Psychiatric: Reports: No Symptoms - Patient Data Vitals - Most Recent: Last Vital Signs Temp 99.0 F 05/15/18 21:00 Pulse 60 05/15/18 21:00 Resp 20 05/15/18 21:00 BP 90/50 L 05/15/18 21:00 Pulse Ox 92 L 05/15/18 21:00 Weight - Most Recent: 245 lb 13.047 oz I&O - Last 24 Hours: Intake & Output 05/15/18 05/15/18 05/15/18 06:59 14:59 22:59 Intake Total 1999 50 2790 Balance 1999 50 2790 Lab Results Last 24 Hours: Laboratory Results - last 24 hr 05/14/18 05/15/18 Range/Units 14:25 06:29 WBC 15.36 H (4.0-11.0) K/uL RBC 2.93 L (4.50-5.90) M/uL Hgb 7.9 L (13.0-17.0) g/dL Hct 24.9 L (38.0-50.0) % MCV 85.0 (80.0-98.0) fL MCH 27.0 (27.0-32.0) pg MCHC 31.7 (31.0-37.0) g/dL RDW Std Deviation 54.4 (28.0-62.0) fl RDW Coeff of [place] 18 H (11.0-15.0) % Plt Count 363 (150-400) K/uL MPV 8.60 (7.40-12.00) fL Add Manual Diff YES Neutrophils % (Manual) 76 (48.0-80.0) % Band Neutrophils % 13 % Lymphocytes % (Manual) 4 L (16.0-40.0) % Monocytes % (Manual) 7 (0.0-15.0) % Nucleated RBC % 0.4 /100WBC Absolute Seg Neuts 11.7 H (1.4-5.7) Band Neutrophils # 2.0 Lymphocytes # (Manual) 0.6 (0.6-2.4) Monocytes # (Manual) 1.1 H (0.0-0.8) Nucleated RBCs # 0 K/uL Blood Type A POSITIVE Antibody Screen NEGATIVE Crossmatch See Detail Med Orders - Current: Current Medications Albuterol (Ventolin Hfa) 8 gm INH Q6HRRT PRN PRN Reason: Wheezing Last Admin: 05/15/18 10:57 Dose: 2 dose Aspirin (Aspirin) 325 mg PO DAILY [facility] Last Admin: 05/15/18 08:04 Dose: 325 mg Calcium Carbonate/Glycine (Tums) 1,000 mg PO DAILY [facility] Last Admin: 05/15/18 08:01 Dose: 1,000 mg Cholecalciferol (Vitamin D3) 3,000 units PO DAILY [facility] Last Admin: 05/15/18 08:00 Dose: 3,000 units Docusate Sodium (Colace) 200 mg PO BID [facility] Last Admin: 05/15/18 20:44 Dose: Not Given Fentanyl (Duragesic) 100 mcg TOP Q72H [facility] Last Admin: 05/13/18 19:02 Dose: 100 mcg Gabapentin (Neurontin) 300 mg PO TID [facility] Last Admin: 05/15/18 21:13 Dose: 300 mg Lactated Ringer's (Ringers, Lactated) 500 mls @ 999 mls/hr IV ASDIRECTED [facility] Last Admin: 05/13/18 14:46 Dose: 999 mls/hr Vancomycin HCl 1,500 mg/ (Sodium Chloride) 500 mls @ 333.333 mls/hr IV Q12H [facility] Last Admin: 05/15/18 15:36 Dose: 333.333 mls/hr Lactated Ringer's (Ringers, Lactated) 1,000 mls @ 999 mls/hr IV ASDIRECTED [facility] Piperacillin Sod/Tazobactam (Sod 3.375 gm/ Sodium Chloride) 50 mls @ 100 mls/ hr IV Q8H [facility] Last Admin: 05/15/18 21:12 Dose: 100 mls/hr Lactated Ringer's (Ringers, Lactated) 1,000 mls @ 100 mls/hr IV ASDIRECTED [facility] Last Admin: 05/15/18 12:50 Dose: 100 mls/hr Morphine Sulfate (Morphine 20 Mg/Ml Soln) 5 mg PO Q4H PRN PRN Reason: Pain Last Admin: 05/15/18 20:43 Dose: 5 mg Nystatin (Nystop) 0 gm TOP TID [facility] Last Admin: 05/15/18 21:15 Dose: 1 applic Omeprazole (Omeprazole) 20 mg PO ACBREAKFAST [facility] Last Admin: 05/15/18 06:31 Dose: 20 mg Ondansetron HCl (Zofran) 4 mg IVPUSH Q4H PRN PRN Reason: Nausea/Vomiting Last Admin: 05/01/18 06:32 Dose: 4 mg Dnb123/Iron Fumarate /Fa/Dss [ 19 Tablet] 1 Tab 1 each PO DAILY [facility] Last Admin: 05/15/18 09:18 Dose: Not Given Polyethylene Glycol (Miralax) 17 gm PO DAILY [facility] Last Admin: 05/15/18 09:18 Dose: Not Given Polyethylene Glycol (Miralax) 17 gm PO BEDTIME PRN PRN Reason: Constipation Prednisone (Prednisone) 5 mg PO BIDMEALS [facility] Last Admin: 05/15/18 16:45 Dose: 5 mg Prochlorperazine Maleate (Compazine) 10 mg PO Q6H PRN PRN Reason: Nausea Vancomycin HCl (Pharmacy To Dose - Vancomycin) 0 dose .XX ASDIRECTED [facility] Discontinued Medications Docusate Sodium (Colace) 100 mg PO DAILY [facility] Last Admin: 05/13/18 09:14 Dose: 100 mg Enoxaparin Sodium (Lovenox) 40 mg SUBCUT Q24H [facility] Last Admin: 05/08/18 16:14 Dose: 40 mg Fentanyl (Duragesic) 25 mcg TOP Q72H [facility] Last Admin: 05/01/18 08:16 Dose: 25 mcg Fentanyl (Duragesic) 50 mcg TOP Q72H [facility] Last Admin: 05/11/18 09:58 Dose: 50 mcg Fentanyl (Duragesic) 75 mcg TOP Q72H [facility] Last Admin: 05/12/18 16:54 Dose: 75 mcg Heparin Sodium (Porcine) (Heparin Lock Flush 100 Units/Ml) 500 units FLUSH ONETIME ONE Stop: 04/28/18 14:28 Last Admin: 04/28/18 15:40 Dose: 500 units Hydromorphone HCl (Dilaudid) 2 mg IVPUSH Q4H PRN PRN Reason: Pain Last Admin: 05/03/18 17:27 Dose: 2 mg Hydromorphone HCl (Dilaudid) 2 mg IVPUSH Q2H PRN PRN Reason: Pain Last Admin: 05/10/18 08:54 Dose: 2 mg Hydromorphone HCl (Dilaudid) 2 mg IVPUSH Q1H PRN PRN Reason: Pain Last Admin: 05/13/18 12:10 Dose: 2 mg Vancomycin HCl 1,250 mg/ (Sodium Chloride) 250 mls @ 166.667 mls/hr IV Q8H [facility] Last Admin: 04/30/18 08:37 Dose: 166 mls/hr Clindamycin Phosphate 600 mg/ (Premix) 50 mls @ 100 mls/hr IV Q6H [facility] Last Admin: 04/30/18 13:56 Dose: Not Given Clindamycin Phosphate 600 mg/ (Premix) 50 mls @ 100 mls/hr IV Q6H [facility] Last Admin: 05/01/18 07:05 Dose: 100 mls/hr Levofloxacin/Dextrose 750 mg/ (Premix) 150 mls @ 100 mls/hr IV Q24H [facility] Last Admin: 05/13/18 09:28 Dose: Not Given Sodium Chloride (Normal Saline) 500 mls @ 999 mls/hr IV ONETIME ONE Stop: 05/14/18 10:52 Last Admin: 05/14/18 10:34 Dose: 999 mls/hr Levofloxacin (Levaquin) 750 mg PO ONETIME ONE Stop: 05/14/18 14:22 Last Admin: 05/14/18 14:38 Dose: 750 mg Losartan Potassium (Cozaar) 100 mg PO DAILY [facility] Last Admin: 05/13/18 09:16 Dose: Not Given Oxycodone HCl (Oxycodone) 5 mg PO Q4H PRN PRN Reason: Pain Last Admin: 05/10/18 08:33 Dose: 5 mg Oxycodone HCl (Oxycodone) 10 mg PO Q4H PRN PRN Reason: Pain Last Admin: 05/12/18 17:58 Dose: 10 mg Potassium Chloride (Klor-Con 8) 8 meq PO BID [facility] Last Admin: 05/01/18 09:45 Dose: 8 meq Sodium Polystyrene Sulfonate (Kayexalate) 15 gm PO ONETIME ONE Stop: 05/14/18 14:15 Last Admin: 05/14/18 14:38 Dose: 15 gm Vancomycin HCl (Pharmacy To Dose - Vancomycin) 1 dose .XX ASDIRECTED [facility] - Exam General: Alert, Oriented HEENT: Pupils Equal, Pupils Reactive Neck: Supple, Trachea Midline Lungs: Clear to Auscultation Cardiovascular: Regular Rate, Regular Rhythm, No Murmurs GI/Abdominal Exam: Normal Bowel Sounds, Soft, Non-Tender, No Distention Back Exam: Normal Inspection Extremities: Normal Inspection Skin: Warm, Dry Wound/Incisions: No Drainage Neurological: No New Focal Deficit Psy/Mental Status: Alert - Problem List & Annotations (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 SNOMED Code(s): 057783716 Code(s): C49.22 - MALIG NEOPLM OF CONN AND SOFT TISS OF LEFT LOW LIMB, INC HIP Status: Acute Current Visit: Yes (2) Prostate cancer metastatic to bone SNOMED Code(s): 25253798 Code(s): C61 - MALIGNANT NEOPLASM OF PROSTATE; C79.51 - SECONDARY MALIGNANT NEOPLASM OF BONE Status: Acute Current Visit: No (3) Sepsis SNOMED Code(s): 69857289 Code(s): A41.9 - SEPSIS, UNSPECIFIED ORGANISM Status: Acute Current Visit : Yes (4) Anemia due to blood loss, chronic SNOMED Code(s): 333631612 Code(s): D50.0 - IRON DEFICIENCY ANEMIA SECONDARY TO BLOOD LOSS (CHRONIC) Status: Acute Current Visit: Yes - Problem List Review Problem List Initiated/Reviewed/Updated: Yes - My Orders Last 24 Hours: My Active Orders 05/14/18 22:35 Transfuse RBC [Transfuse Red Blood Cells] [COMM] Stat - Plan Plan:: 62 yo male admitted for pain management of extensive metastatic prostate cancer. Will increase fentanyl to 100 mcq q 72 h ,d/c Dilaudid , d/c oxycodone , will start patient on morphine 5 mg po q 4 h prn for pain , collace 200 mg po BID , Miralx 30 cc daily prn for constipation. . Plan is to discharge to SNF on hospice when bed is available.Patient still not yet evaluated by hospice For left thigh wound - local dressing , sepsis- improvin wbs and BP improving - IV fluids throughout the day , will d/ c fluids now , continue patient with Vancomycin iv and zosyn iv anemia due to blood loss, chronic disease - s/p transfusion patient 2 unit of blood
[2018-05-16] MEDS: Morphine Oral Concentrate 20 MG/ML 30 ML Bottle PO PRN ×2 (03:22→10:27)
[2018-05-16] MEDS: Piperacillin/Tazobactam 3.375 GM in Sodium Chloride 0.9% 50 ML IV SCH ×2 (04:58→13:34)
[2018-05-16] MEDS: Gabapentin 300 MG Cap PO SCH ×3 (06:29→21:37)
[2018-05-16] MEDS: Omeprazole 20 MG Cap.CR PO SCH (06:30)
[2018-05-16] MEDS: Nystatin Topical Powder 15 GM Bottle TOP SCH ×3 (06:31→21:38)
[2018-05-16] MEDS: Cholecalciferol (Vitamin D3) 1,000 Unit Tab PO SCH (10:25)
[2018-05-16] MEDS: Docusate Sodium 100 MG Cap PO SCH ×2 (10:25→20:22)
[2018-05-16] MEDS: Calcium Carbonate 500 MG Tab.Chew PO SCH (10:26)
[2018-05-16] MEDS: Polyethylene Glycol 3350 Powder 17 GM Packet PO SCH (10:39)
[2018-05-16] MEDS: IRON FUMARATE PO SCH (10:55)
[2018-05-16] MEDS: Aspirin 325 MG Tab PO SCH (10:55)
[2018-05-16] MEDS: predniSONE 5 MG Tab PO SCH ×2 (10:55→17:32)
[2018-05-16] MEDS: DSS PO SCH (10:55)
[2018-05-16] MEDS: [UNRECOGNIZED DRUG - OTHER] PO SCH (10:55)
[2018-05-16] MEDS ORDERED: Morphine Oral Concentrate 20 MG/ML 30 ML Bottle PO PRN (15:43)
[2018-05-16] MEDS: Albuterol 8 GM Inhaler INH PRN (18:23)
[2018-05-16] MEDS: cefTRIAXone 2 GM in Premix Bag 1 BAG IV SCH (18:25)
--- NOTE | 2018-05-16 18:28 | PCM.PN ---
- General Info Date of Service: 05/16/18 Admission Dx/Problem (Free Text): patient wanted medication to be changed from morphine to dialudid. BP improved , Vancomycin through is high , increased in creatinine. Improved WBC Pain Score: 8 - Review of Systems General: Reports: Weakness HEENT: Reports: No Symptoms Pulmonary: Reports: Shortness of Breath Cardiovascular: Reports: No Symptoms Gastrointestinal: Reports: No Symptoms Genitourinary: Reports: No Symptoms Musculoskeletal: Reports: Leg Pain Skin: Reports: Other (left hip tumor) Neurological: Reports: No Symptoms Psychiatric: Reports: No Symptoms - Patient Data Vitals - Most Recent: Last Vital Signs Temp 98.9 F 05/16/18 00:00 Pulse 98 05/16/18 00:00 Resp 20 05/16/18 00:00 BP 98/60 05/16/18 00:00 Pulse Ox 93 L 05/16/18 00:00 Weight - Most Recent: 245 lb 13.047 oz I&O - Last 24 Hours: Intake & Output 05/16/18 05/16/18 05/16/18 06:59 14:59 22:59 Intake Total 650 250 Balance 650 250 Lab Results Last 24 Hours: Laboratory Results - last 24 hr 05/16/18 05/16/18 05/16/18 Range/Units 06:29 06:29 14:53 WBC 15.05 H (4.0-11.0) K/uL RBC 3.16 L (4.50-5.90) M/uL Hgb 8.4 L (13.0-17.0) g/dL Hct 27.3 L (38.0-50.0) % MCV 86.4 (80.0-98.0) fL MCH 26.6 L (27.0-32.0) pg MCHC 30.8 L (31.0-37.0) g/dL RDW Std Deviation 56.1 (28.0-62.0) fl RDW Coeff of [place] 18 H (11.0-15.0) % Plt Count 371 (150-400) K/uL MPV 8.60 (7.40-12.00) fL Nucleated RBC % 0.3 /100WBC Nucleated RBCs # 0 K/uL Sodium 132 L (136-148) mmol/L Potassium 4.6 (3.5-5.1) mmol/L Chloride 98 (98-107) mmol/L Carbon Dioxide 28.5 (21.0-32.0) mmol/L BUN 52 H (7.0-18.0) mg/dL Creatinine 1.5 H (0.8-1.3) mg/dL Est Cr Clr Drug Dosing 51.06 mL/min Estimated GFR (MDRD) 47.4 ml/min Glucose 106 (74-106) mg/dL Calcium 8.0 L (8.5-10.1) mg/dL Total Bilirubin 0.8 (0.2-1.0) mg/dL AST 96 H (15-37) IU/L ALT 23 (14-63) IU/L Alkaline Phosphatase 263 H (46-116) U/L Total Protein 5.5 L (6.4-8.2) g/dL Albumin 1.6 L (3.4-5.0) g/dL Globulin 3.9 H (2.0-3.5) g/dL Albumin/Globulin Ratio 0.4 L (1.3-2.8) Vancomycin Trough 29.8 H (5.0-10.0) ug/mL Med Orders - Current: Current Medications Albuterol (Ventolin Hfa) 8 gm INH Q6HRRT PRN PRN Reason: Wheezing Last Admin: 05/16/18 18:23 Dose: 2 dose Apixaban (Eliquis) 5 mg PO BID [facility] Aspirin (Aspirin) 325 mg PO DAILY [facility] Last Admin: 05/16/18 10:55 Dose: 325 mg Calcium Carbonate/Glycine (Tums) 1,000 mg PO DAILY [facility] Last Admin: 05/16/18 10:26 Dose: 1,000 mg Cholecalciferol (Vitamin D3) 3,000 units PO DAILY [facility] Last Admin: 05/16/18 10:25 Dose: 3,000 units Docusate Sodium (Colace) 200 mg PO BID [facility] Last Admin: 05/16/18 10:25 Dose: 200 mg Fentanyl (Duragesic) 100 mcg TOP Q72H [facility] Last Admin: 05/13/18 19:02 Dose: 100 mcg Gabapentin (Neurontin) 300 mg PO TID [facility] Last Admin: 05/16/18 14:50 Dose: 300 mg Ceftriaxone Sodium/Dextrose 2 (gm/ Premix) 50 mls @ 100 mls/hr IV Q24H [facility] Last Admin: 05/16/18 18:25 Dose: 100 mls/hr Morphine Sulfate (Morphine 20 Mg/Ml Soln) 10 mg PO Q4H PRN PRN Reason: Pain Last Admin: 05/16/18 17:29 Dose: 10 mg Nystatin (Nystop) 0 gm TOP TID [facility] Last Admin: 05/16/18 16:22 Dose: Not Given Omeprazole (Omeprazole) 20 mg PO ACBREAKFAST [facility] Last Admin: 05/16/18 06:30 Dose: 20 mg Ondansetron HCl (Zofran) 4 mg IVPUSH Q4H PRN PRN Reason: Nausea/Vomiting Last Admin: 05/01/18 06:32 Dose: 4 mg [id number]/Iron Fumarate /Fa/Dss [ 19 Tablet] 1 Tab 1 each PO DAILY [facility] Last Admin: 05/16/18 10:55 Dose: Not Given Polyethylene Glycol (Miralax) 17 gm PO DAILY [facility] Last Admin: 05/16/18 10:39 Dose: Not Given Polyethylene Glycol (Miralax) 17 gm PO BEDTIME PRN PRN Reason: Constipation Prednisone (Prednisone) 5 mg PO BIDMEALS [facility] Last Admin: 05/16/18 17:32 Dose: 5 mg Prochlorperazine Maleate (Compazine) 10 mg PO Q6H PRN PRN Reason: Nausea Discontinued Medications Docusate Sodium (Colace) 100 mg PO DAILY [facility] Last Admin: 05/13/18 09:14 Dose: 100 mg Enoxaparin Sodium (Lovenox) 40 mg SUBCUT Q24H [facility] Last Admin: 05/08/18 16:14 Dose: 40 mg Fentanyl (Duragesic) 25 mcg TOP Q72H [facility] Last Admin: 05/01/18 08:16 Dose: 25 mcg Fentanyl (Duragesic) 50 mcg TOP Q72H [facility] Last Admin: 05/11/18 09:58 Dose: 50 mcg Fentanyl (Duragesic) 75 mcg TOP Q72H [facility] Last Admin: 05/12/18 16:54 Dose: 75 mcg Heparin Sodium (Porcine) (Heparin Lock Flush 100 Units/Ml) 500 units FLUSH ONETIME ONE Stop: 04/28/18 14:28 Last Admin: 04/28/18 15:40 Dose: 500 units Hydromorphone HCl (Dilaudid) 2 mg IVPUSH Q4H PRN PRN Reason: Pain Last Admin: 05/03/18 17:27 Dose: 2 mg Hydromorphone HCl (Dilaudid) 2 mg IVPUSH Q2H PRN PRN Reason: Pain Last Admin: 05/10/18 08:54 Dose: 2 mg Hydromorphone HCl (Dilaudid) 2 mg IVPUSH Q1H PRN PRN Reason: Pain Last Admin: 05/13/18 12:10 Dose: 2 mg Vancomycin HCl 1,250 mg/ (Sodium Chloride) 250 mls @ 166.667 mls/hr IV Q8H [facility] Last Admin: 04/30/18 08:37 Dose: 166 mls/hr Clindamycin Phosphate 600 mg/ (Premix) 50 mls @ 100 mls/hr IV Q6H [facility] Last Admin: 04/30/18 13:56 Dose: Not Given Clindamycin Phosphate 600 mg/ (Premix) 50 mls @ 100 mls/hr IV Q6H [facility] Last Admin: 05/01/18 07:05 Dose: 100 mls/hr Levofloxacin/Dextrose 750 mg/ (Premix) 150 mls @ 100 mls/hr IV Q24H [facility] Last Admin: 05/13/18 09:28 Dose: Not Given Lactated Ringer's (Ringers, Lactated) 500 mls @ 999 mls/hr IV ASDIRECTED [facility] Last Admin: 05/13/18 14:46 Dose: 999 mls/hr Sodium Chloride (Normal Saline) 500 mls @ 999 mls/hr IV ONETIME ONE Stop: 05/14/18 10:52 Last Admin: 05/14/18 10:34 Dose: 999 mls/hr Vancomycin HCl 1,500 mg/ (Sodium Chloride) 500 mls @ 333.333 mls/hr IV Q12H [facility] Last Admin: 05/16/18 17:45 Dose: Not Given Lactated Ringer's (Ringers, Lactated) 1,000 mls @ 999 mls/hr IV ASDIRECTED [facility] Piperacillin Sod/Tazobactam (Sod 3.375 gm/ Sodium Chloride) 50 mls @ 100 mls/ hr IV Q8H [facility] Last Admin: 05/16/18 13:34 Dose: 100 mls/hr Lactated Ringer's (Ringers, Lactated) 1,000 mls @ 100 mls/hr IV ASDIRECTED [facility] Last Admin: 05/15/18 12:50 Dose: 100 mls/hr Levofloxacin (Levaquin) 750 mg PO ONETIME ONE Stop: 05/14/18 14:22 Last Admin: 05/14/18 14:38 Dose: 750 mg Losartan Potassium (Cozaar) 100 mg PO DAILY [facility] Last Admin: 05/13/18 09:16 Dose: Not Given Morphine Sulfate (Morphine 20 Mg/Ml Soln) 5 mg PO Q4H PRN PRN Reason: Pain Last Admin: 05/16/18 10:27 Dose: 5 mg Oxycodone HCl (Oxycodone) 5 mg PO Q4H PRN PRN Reason: Pain Last Admin: 05/10/18 08:33 Dose: 5 mg Oxycodone HCl (Oxycodone) 10 mg PO Q4H PRN PRN Reason: Pain Last Admin: 05/12/18 17:58 Dose: 10 mg Potassium Chloride (Klor-Con 8) 8 meq PO BID [facility] Last Admin: 05/01/18 09:45 Dose: 8 meq Sodium Polystyrene Sulfonate (Kayexalate) 15 gm PO ONETIME ONE Stop: 05/14/18 14:15 Last Admin: 05/14/18 14:38 Dose: 15 gm Vancomycin HCl (Pharmacy To Dose - Vancomycin) 1 dose .XX ASDIRECTED [facility] Vancomycin HCl (Pharmacy To Dose - Vancomycin) 0 dose .XX ASDIRECTED [facility] - Exam General: Alert, Oriented HEENT: Pupils Equal, Pupils Reactive Neck: Supple, Trachea Midline, No JVD, No Thyromegaly Lungs: Clear to Auscultation, Normal Respiratory Effort Cardiovascular: Regular Rate, Regular Rhythm GI/Abdominal Exam: Normal Bowel Sounds, Soft, Non-Tender, No Organomegaly, No Distention Back Exam: Normal Inspection Extremities: Normal Inspection Skin: Warm, Dry Neurological: No New Focal Deficit Psy/Mental Status: Alert, Normal Affect - Problem List & Annotations (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 SNOMED Code(s): 388309685 Code(s): C49.22 - MALIG NEOPLM OF CONN AND SOFT TISS OF LEFT LOW LIMB, INC HIP Status: Acute Current Visit: Yes (2) Prostate cancer metastatic to bone SNOMED Code(s): 91852997 Code(s): C61 - MALIGNANT NEOPLASM OF PROSTATE; C79.51 - SECONDARY MALIGNANT NEOPLASM OF BONE Status: Acute Current Visit: No (3) Sepsis SNOMED Code(s): 93058662 Code(s): A41.9 - SEPSIS, UNSPECIFIED ORGANISM Status: Acute Current Visit : Yes (4) Anemia due to blood loss, chronic SNOMED Code(s): 265023145 Code(s): D50.0 - IRON DEFICIENCY ANEMIA SECONDARY TO BLOOD LOSS (CHRONIC) Status: Acute Current Visit: Yes - Problem List Review Problem List Initiated/Reviewed/Updated: Yes - My Orders Last 24 Hours: My Active Orders 05/16/18 15:43 Morphine [Morphine 20 MG/ML Soln] 10 mg PO Q4H PRN 05/16/18 21:00 Apixaban [Eliquis] 5 mg PO BID 05/17/18 05:11 CBC W/O DIFF,HEMOGRAM [HEME] AM CMP [COMPREHENSIVE METABOLIC PN,CMP] [CHEM] AM 05/18/18 05:11 CBC W/O DIFF,HEMOGRAM [HEME] AM CMP [COMPREHENSIVE METABOLIC PN,CMP] [CHEM] AM 05/19/18 05:11 CBC W/O DIFF,HEMOGRAM [HEME] AM CMP [COMPREHENSIVE METABOLIC PN,CMP] [CHEM] AM 05/20/18 05:11 CBC W/O DIFF,HEMOGRAM [HEME] AM CMP [COMPREHENSIVE METABOLIC PN,CMP] [CHEM] AM - Plan Plan:: 62 yo male admitted for pain management of extensive metastatic prostate cancer. Will increase fentanyl to 100 mcq q 72 h ,d/c Dilaudid , d/c oxycodone , d/c morphine , start dilaudid 4 mg po q 4 h prn for pain q 4 h prn for pain , collace 200 mg po BID , Miralx 30 cc daily prn for constipation. . Plan is to discharge to SNF on hospice when bed is available.Patient still not yet evaluated by hospice For left thigh wound - local dressing , sepsis- improvin wbs and BP improving - d/c Vancomycin and d/c zosyn , change to Rocephine 1 gram iv based on MSSA cx anemia due to blood loss, chronic disease - s/p transfusion patient 2 unit of blood, hb stable
[2018-05-16] MEDS: HYDROmorphone 2 MG Tab PO PRN (20:21)
[2018-05-16] MEDS: Apixaban 5 MG Tab PO SCH (20:22)
[2018-05-17] MEDS: fentaNYL 100 MCG/HR Transdermal Patch TOP SCH ×2 (00:12→02:20)
[2018-05-17 06:25] LABS: CHLORIDE,CL 99 mmol/L (98-107); SODIUM,NA 134 mmol/L (136-148)
[2018-05-17] MEDS: Gabapentin 300 MG Cap PO SCH ×3 (06:38→21:50)
[2018-05-17] MEDS: Omeprazole 20 MG Cap.CR PO SCH (06:39)
[2018-05-17] MEDS: Nystatin Topical Powder 15 GM Bottle TOP SCH ×3 (06:40→21:55)
[2018-05-17] MEDS: Albuterol 8 GM Inhaler INH PRN (09:01)
[2018-05-17] MEDS: predniSONE 5 MG Tab PO SCH ×2 (09:02→16:51)
[2018-05-17] MEDS: Apixaban 5 MG Tab PO SCH ×2 (09:02→21:50)
[2018-05-17] MEDS: Aspirin 325 MG Tab PO SCH (09:02)
[2018-05-17] MEDS: Calcium Carbonate 500 MG Tab.Chew PO SCH (09:02)
[2018-05-17] MEDS: Docusate Sodium 100 MG Cap PO SCH ×2 (09:02→21:50)
[2018-05-17] MEDS: Cholecalciferol (Vitamin D3) 1,000 Unit Tab PO SCH (09:02)
[2018-05-17] MEDS: [UNRECOGNIZED DRUG - OTHER] PO SCH (09:03)
[2018-05-17] MEDS: DSS PO SCH (09:03)
[2018-05-17] MEDS: IRON FUMARATE PO SCH (09:03)
[2018-05-17] MEDS: Polyethylene Glycol 3350 Powder 17 GM Packet PO SCH (09:03)
[2018-05-17] MEDS: HYDROmorphone 2 MG Tab PO PRN ×2 (09:51→21:50)
[2018-05-17] MEDS ORDERED: Enoxaparin 40 MG/0.4 ML Syringe SUBCUT SCH (15:30)
[2018-05-17] MEDS ORDERED: Levofloxacin/Dextrose 5%-Water 750 MG in Premix Bag 1 BAG IV SCH (16:30)
[2018-05-17] MEDS: cefTRIAXone 2 GM in Premix Bag 1 BAG IV SCH (18:43)
[2018-05-18] MEDS: HYDROmorphone 2 MG Tab PO PRN ×3 (06:36→21:24)
[2018-05-18] MEDS: Omeprazole 20 MG Cap.CR PO SCH (06:37)
[2018-05-18] MEDS: Gabapentin 300 MG Cap PO SCH ×3 (06:37→21:25)
[2018-05-18] MEDS: Nystatin Topical Powder 15 GM Bottle TOP SCH ×3 (06:39→21:26)
[2018-05-18] MEDS: Docusate Sodium 100 MG Cap PO SCH ×2 (08:50→21:23)
[2018-05-18] MEDS: Apixaban 5 MG Tab PO SCH ×2 (08:50→21:25)
[2018-05-18] MEDS: Calcium Carbonate 500 MG Tab.Chew PO SCH (08:50)
[2018-05-18] MEDS: Cholecalciferol (Vitamin D3) 1,000 Unit Tab PO SCH (08:50)
[2018-05-18] MEDS: Polyethylene Glycol 3350 Powder 17 GM Packet PO SCH (08:50)
[2018-05-18] MEDS: Aspirin 325 MG Tab PO SCH (08:50)
[2018-05-18] MEDS: predniSONE 5 MG Tab PO SCH ×4 (08:50→17:41)
[2018-05-18] MEDS: IRON FUMARATE PO SCH (08:59)
[2018-05-18] MEDS: DSS PO SCH (08:59)
[2018-05-18] MEDS: [UNRECOGNIZED DRUG - OTHER] PO SCH (08:59)
[2018-05-18] MEDS: cefTRIAXone 2 GM in Premix Bag 1 BAG IV SCH (17:22)
--- NOTE | 2018-05-18 21:04 | PCM.PN ---
- General Info Date of Service: 05/18/18 Admission Dx/Problem (Free Text): patient is confused , he does not process what he is being asked oftentimes. sister in the room not decided yet about comfort care measures , she said she will think about it - Review of Systems General: Reports: No Symptoms HEENT: Reports: No Symptoms Pulmonary: Reports: Shortness of Breath Cardiovascular: Reports: No Symptoms Gastrointestinal: Reports: No Symptoms Genitourinary: Reports: No Symptoms Musculoskeletal: Reports: Leg Pain Skin: Reports: Other (left hip tumor) Neurological: Reports: No Symptoms Psychiatric: Reports: Confusion - Patient Data Vitals - Most Recent: Last Vital Signs Temp 99.2 F 05/18/18 20:00 Pulse 105 H 05/18/18 20:00 Resp 17 05/18/18 20:00 BP 105/57 L 05/18/18 20:00 Pulse Ox 95 05/18/18 20:00 Weight - Most Recent: 245 lb 13.047 oz I&O - Last 24 Hours: Intake & Output 05/18/18 05/18/18 05/18/18 06:59 14:59 22:59 Intake Total 200 Output Total 0 Balance 200 Med Orders - Current: Current Medications Albuterol (Ventolin Hfa) 8 gm INH Q6HRRT PRN PRN Reason: Wheezing Last Admin: 05/17/18 09:01 Dose: 1 dose Apixaban (Eliquis) 5 mg PO BID [facility] Last Admin: 05/18/18 08:50 Dose: 5 mg Aspirin (Aspirin) 325 mg PO DAILY [facility] Last Admin: 05/18/18 08:50 Dose: 325 mg Calcium Carbonate/Glycine (Tums) 1,000 mg PO DAILY [facility] Last Admin: 05/18/18 08:50 Dose: 1,000 mg Cholecalciferol (Vitamin D3) 3,000 units PO DAILY [facility] Last Admin: 05/18/18 08:50 Dose: 3,000 units Docusate Sodium (Colace) 200 mg PO BID [facility] Last Admin: 05/18/18 08:50 Dose: 200 mg Fentanyl (Duragesic) 100 mcg TOP Q72H [facility] Last Admin: 05/17/18 02:20 Dose: 100 mcg Gabapentin (Neurontin) 300 mg PO TID [facility] Last Admin: 05/18/18 14:10 Dose: 300 mg Hydromorphone HCl (Dilaudid) 6 mg PO Q4H PRN PRN Reason: Pain Last Admin: 05/18/18 14:09 Dose: 6 mg Ceftriaxone Sodium/Dextrose 2 (gm/ Premix) 50 mls @ 100 mls/hr IV Q24H [facility] Last Admin: 05/18/18 17:22 Dose: 100 mls/hr Nystatin (Nystop) 0 gm TOP TID [facility] Last Admin: 05/18/18 14:10 Dose: 1 applic Omeprazole (Omeprazole) 20 mg PO ACBREAKFAST [facility] Last Admin: 05/18/18 06:37 Dose: 20 mg Ondansetron HCl (Zofran) 4 mg IVPUSH Q4H PRN PRN Reason: Nausea/Vomiting Last Admin: 05/01/18 06:32 Dose: 4 mg Mjq843/Iron Fumarate /Fa/Dss [ 19 Tablet] 1 Tab 1 each PO DAILY [facility] Last Admin: 05/18/18 08:59 Dose: Not Given Polyethylene Glycol (Miralax) 17 gm PO DAILY [facility] Last Admin: 05/18/18 08:50 Dose: 17 gm Polyethylene Glycol (Miralax) 17 gm PO BEDTIME PRN PRN Reason: Constipation Prednisone (Prednisone) 5 mg PO BIDMEALS [facility] Last Admin: 05/18/18 17:41 Dose: 5 mg Prochlorperazine Maleate (Compazine) 10 mg PO Q6H PRN PRN Reason: Nausea Discontinued Medications Docusate Sodium (Colace) 100 mg PO DAILY [facility] Last Admin: 05/13/18 09:14 Dose: 100 mg Enoxaparin Sodium (Lovenox) 40 mg SUBCUT Q24H [facility] Last Admin: 05/08/18 16:14 Dose: 40 mg Enoxaparin Sodium (Lovenox) 40 mg SUBCUT Q24H [facility] Last Admin: 05/17/18 16:36 Dose: Not Given Fentanyl (Duragesic) 25 mcg TOP Q72H [facility] Last Admin: 05/01/18 08:16 Dose: 25 mcg Fentanyl (Duragesic) 50 mcg TOP Q72H [facility] Last Admin: 05/11/18 09:58 Dose: 50 mcg Fentanyl (Duragesic) 75 mcg TOP Q72H [facility] Last Admin: 05/12/18 16:54 Dose: 75 mcg Heparin Sodium (Porcine) (Heparin Lock Flush 100 Units/Ml) 500 units FLUSH ONETIME ONE Stop: 04/28/18 14:28 Last Admin: 04/28/18 15:40 Dose: 500 units Hydromorphone HCl (Dilaudid) 2 mg IVPUSH Q4H PRN PRN Reason: Pain Last Admin: 05/03/18 17:27 Dose: 2 mg Hydromorphone HCl (Dilaudid) 2 mg IVPUSH Q2H PRN PRN Reason: Pain Last Admin: 05/10/18 08:54 Dose: 2 mg Hydromorphone HCl (Dilaudid) 2 mg IVPUSH Q1H PRN PRN Reason: Pain Last Admin: 05/13/18 12:10 Dose: 2 mg Hydromorphone HCl (Dilaudid) 4 mg PO Q4H PRN PRN Reason: Pain Last Admin: 05/17/18 09:51 Dose: 4 mg Vancomycin HCl 1,250 mg/ (Sodium Chloride) 250 mls @ 166.667 mls/hr IV Q8H [facility] Last Admin: 04/30/18 08:37 Dose: 166 mls/hr Clindamycin Phosphate 600 mg/ (Premix) 50 mls @ 100 mls/hr IV Q6H [facility] Last Admin: 04/30/18 13:56 Dose: Not Given Clindamycin Phosphate 600 mg/ (Premix) 50 mls @ 100 mls/hr IV Q6H [facility] Last Admin: 05/01/18 07:05 Dose: 100 mls/hr Levofloxacin/Dextrose 750 mg/ (Premix) 150 mls @ 100 mls/hr IV Q24H [facility] Last Admin: 05/13/18 09:28 Dose: Not Given Lactated Ringer's (Ringers, Lactated) 500 mls @ 999 mls/hr IV ASDIRECTED [facility] Last Admin: 05/13/18 14:46 Dose: 999 mls/hr Sodium Chloride (Normal Saline) 500 mls @ 999 mls/hr IV ONETIME ONE Stop: 05/14/18 10:52 Last Admin: 05/14/18 10:34 Dose: 999 mls/hr Vancomycin HCl 1,500 mg/ (Sodium Chloride) 500 mls @ 333.333 mls/hr IV Q12H [facility] Last Admin: 05/16/18 17:45 Dose: Not Given Lactated Ringer's (Ringers, Lactated) 1,000 mls @ 999 mls/hr IV ASDIRECTED [facility] Piperacillin Sod/Tazobactam (Sod 3.375 gm/ Sodium Chloride) 50 mls @ 100 mls/ hr IV Q8H [facility] Last Admin: 05/16/18 13:34 Dose: 100 mls/hr Lactated Ringer's (Ringers, Lactated) 1,000 mls @ 100 mls/hr IV ASDIRECTED [facility] Last Admin: 05/15/18 12:50 Dose: 100 mls/hr Levofloxacin/Dextrose 750 mg/ (Premix) 150 mls @ 100 mls/hr IV Q24H [facility] Last Admin: 05/17/18 16:56 Dose: 100 mls/hr Levofloxacin (Levaquin) 750 mg PO ONETIME ONE Stop: 05/14/18 14:22 Last Admin: 05/14/18 14:38 Dose: 750 mg Losartan Potassium (Cozaar) 100 mg PO DAILY [facility] Last Admin: 05/13/18 09:16 Dose: Not Given Morphine Sulfate (Morphine 20 Mg/Ml Soln) 5 mg PO Q4H PRN PRN Reason: Pain Last Admin: 05/16/18 10:27 Dose: 5 mg Morphine Sulfate (Morphine 20 Mg/Ml Soln) 10 mg PO Q4H PRN PRN Reason: Pain Last Admin: 05/16/18 17:29 Dose: 10 mg Oxycodone HCl (Oxycodone) 5 mg PO Q4H PRN PRN Reason: Pain Last Admin: 05/10/18 08:33 Dose: 5 mg Oxycodone HCl (Oxycodone) 10 mg PO Q4H PRN PRN Reason: Pain Last Admin: 05/12/18 17:58 Dose: 10 mg Potassium Chloride (Klor-Con 8) 8 meq PO BID [facility] Last Admin: 05/01/18 09:45 Dose: 8 meq Sodium Polystyrene Sulfonate (Kayexalate) 15 gm PO ONETIME ONE Stop: 05/14/18 14:15 Last Admin: 05/14/18 14:38 Dose: 15 gm Vancomycin HCl (Pharmacy To Dose - Vancomycin) 1 dose .XX ASDIRECTED [facility] Vancomycin HCl (Pharmacy To Dose - Vancomycin) 0 dose .XX ASDIRECTED [facility] - Exam General: Alert, Oriented HEENT: Pupils Equal Neck: Supple, Trachea Midline, No JVD Lungs: Clear to Auscultation, Normal Respiratory Effort Cardiovascular: Regular Rate, Regular Rhythm, No Murmurs GI/Abdominal Exam: Normal Bowel Sounds, Soft, Non-Tender Back Exam: Normal Inspection Extremities: Pedal Edema Skin: Warm, Other (let hip tumor) Neurological: No New Focal Deficit Psy/Mental Status: Alert - Problem List & Annotations (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 SNOMED Code(s): 056562884 Code(s): C49.22 - MALIG NEOPLM OF CONN AND SOFT TISS OF LEFT LOW LIMB, INC HIP Status: Acute Current Visit: Yes (2) Prostate cancer metastatic to bone SNOMED Code(s): 64070097 Code(s): C61 - MALIGNANT NEOPLASM OF PROSTATE; C79.51 - SECONDARY MALIGNANT NEOPLASM OF BONE Status: Acute Current Visit: No (3) Anemia due to blood loss, chronic SNOMED Code(s): 807709230 Code(s): D50.0 - IRON DEFICIENCY ANEMIA SECONDARY TO BLOOD LOSS (CHRONIC) Status: Acute Current Visit: Yes (4) MSSA bacteremia SNOMED Code(s): 519600568, 546314919 Code(s): R78.81 - BACTEREMIA Status: Acute Current Visit: Yes - Problem List Review Problem List Initiated/Reviewed/Updated: Yes - Plan Plan:: 62 yo male admitted for pain management of extensive metastatic prostate cancer. Will increase fentanyl to 100 mcq q 72 h ,d/c Dilaudid , d/c oxycodone , d/c morphine , dilaudid 6 mg q4 h , collace 200 mg po BID , Miralx 30 cc daily prn for constipation. . Plan is to discharge to SNF on hospice when bed is available, avaiting [place] medicaid.Patient still not yet evaluated by hospice For left thigh wound - local dressing , sepsis- resolved - continue Rocephine 1 gram iv based on MSSA cx for a total of 7 days anemia due to blood loss, chronic disease - s/p transfusion patient 2 unit of blood, hb stable
[2018-05-19] MEDS: HYDROmorphone 2 MG Tab PO PRN ×4 (02:35→21:34)
[2018-05-19] MEDS: Gabapentin 300 MG Cap PO SCH ×3 (06:35→21:36)
[2018-05-19] MEDS: Omeprazole 20 MG Cap.CR PO SCH (06:35)
[2018-05-19] MEDS: Nystatin Topical Powder 15 GM Bottle TOP SCH ×3 (06:45→22:00)
[2018-05-19] MEDS: Calcium Carbonate 500 MG Tab.Chew PO SCH (08:16)
[2018-05-19] MEDS: Cholecalciferol (Vitamin D3) 1,000 Unit Tab PO SCH (08:16)
[2018-05-19] MEDS: Aspirin 325 MG Tab PO SCH (08:16)
[2018-05-19] MEDS: Polyethylene Glycol 3350 Powder 17 GM Packet PO SCH (08:16)
[2018-05-19] MEDS: Docusate Sodium 100 MG Cap PO SCH ×2 (08:17→21:36)
[2018-05-19] MEDS: predniSONE 5 MG Tab PO SCH ×2 (08:17→17:01)
[2018-05-19] MEDS: Apixaban 5 MG Tab PO SCH ×2 (08:17→21:37)
[2018-05-19] MEDS: IRON FUMARATE PO SCH (08:18)
[2018-05-19] MEDS: [UNRECOGNIZED DRUG - OTHER] PO SCH (08:18)
[2018-05-19] MEDS: DSS PO SCH (08:18)
--- NOTE | 2018-05-19 16:40 | PCM.PN ---
- General Info Date of Service: 05/19/18 Admission Dx/Problem (Free Text): Sister discussed with the case management and patient was made comfort measures . Rocephione was d/c Continue pain medications to have patient comfortable. - Review of Systems General: Reports: No Symptoms HEENT: Reports: No Symptoms Pulmonary: Reports: Shortness of Breath Cardiovascular: Reports: No Symptoms Gastrointestinal: Reports: No Symptoms Musculoskeletal: Reports: Leg Pain Skin: Reports: No Symptoms Neurological: Reports: No Symptoms Psychiatric: Reports: No Symptoms - Patient Data Vitals - Most Recent: Last Vital Signs Temp 97.4 F 05/19/18 09:00 Pulse 106 H 05/19/18 09:00 Resp 20 05/19/18 09:00 BP 101/61 05/19/18 09:00 Pulse Ox 92 L 05/19/18 09:00 Weight - Most Recent: 245 lb 13.047 oz I&O - Last 24 Hours: Intake & Output 05/19/18 05/19/18 05/19/18 06:59 14:59 22:59 Intake Total 250 600 Output Total 450 0 250 Balance -200 0 350 Med Orders - Current: Current Medications Albuterol (Ventolin Hfa) 8 gm INH Q6HRRT PRN PRN Reason: Wheezing Last Admin: 05/17/18 09:01 Dose: 1 dose Apixaban (Eliquis) 5 mg PO BID [facility] Last Admin: 05/19/18 08:17 Dose: 5 mg Aspirin (Aspirin) 325 mg PO DAILY [facility] Last Admin: 05/19/18 08:16 Dose: 325 mg Calcium Carbonate/Glycine (Tums) 1,000 mg PO DAILY [facility] Last Admin: 05/19/18 08:16 Dose: 1,000 mg Cholecalciferol (Vitamin D3) 3,000 units PO DAILY [facility] Last Admin: 05/19/18 08:16 Dose: 3,000 units Docusate Sodium (Colace) 200 mg PO BID [facility] Last Admin: 05/19/18 08:17 Dose: 200 mg Fentanyl (Duragesic) 100 mcg TOP Q72H [facility] Last Admin: 05/17/18 02:20 Dose: 100 mcg Gabapentin (Neurontin) 300 mg PO TID [facility] Last Admin: 05/19/18 13:19 Dose: 300 mg Hydromorphone HCl (Dilaudid) 6 mg PO Q4H PRN PRN Reason: Pain Last Admin: 05/19/18 13:43 Dose: 6 mg Ceftriaxone Sodium/Dextrose 2 (gm/ Premix) 50 mls @ 100 mls/hr IV Q24H [facility] Last Admin: 05/18/18 17:22 Dose: 100 mls/hr Nystatin (Nystop) 0 gm TOP TID [facility] Last Admin: 05/19/18 13:19 Dose: 1 applic Omeprazole (Omeprazole) 20 mg PO ACBREAKFAST [facility] Last Admin: 05/19/18 06:35 Dose: 20 mg Ondansetron HCl (Zofran) 4 mg IVPUSH Q4H PRN PRN Reason: Nausea/Vomiting Last Admin: 05/01/18 06:32 Dose: 4 mg [id number]/Iron Fumarate /Fa/Dss [ 19 Tablet] 1 Tab 1 each PO DAILY [facility] Last Admin: 05/19/18 08:18 Dose: Not Given Polyethylene Glycol (Miralax) 17 gm PO DAILY [facility] Last Admin: 05/19/18 08:16 Dose: 17 gm Polyethylene Glycol (Miralax) 17 gm PO BEDTIME PRN PRN Reason: Constipation Prednisone (Prednisone) 5 mg PO BIDMEALS [facility] Last Admin: 05/19/18 08:17 Dose: 5 mg Prochlorperazine Maleate (Compazine) 10 mg PO Q6H PRN PRN Reason: Nausea Discontinued Medications Docusate Sodium (Colace) 100 mg PO DAILY [facility] Last Admin: 05/13/18 09:14 Dose: 100 mg Enoxaparin Sodium (Lovenox) 40 mg SUBCUT Q24H [facility] Last Admin: 05/08/18 16:14 Dose: 40 mg Enoxaparin Sodium (Lovenox) 40 mg SUBCUT Q24H [facility] Last Admin: 05/17/18 16:36 Dose: Not Given Fentanyl (Duragesic) 25 mcg TOP Q72H [facility] Last Admin: 05/01/18 08:16 Dose: 25 mcg Fentanyl (Duragesic) 50 mcg TOP Q72H [facility] Last Admin: 05/11/18 09:58 Dose: 50 mcg Fentanyl (Duragesic) 75 mcg TOP Q72H [facility] Last Admin: 05/12/18 16:54 Dose: 75 mcg Heparin Sodium (Porcine) (Heparin Lock Flush 100 Units/Ml) 500 units FLUSH ONETIME ONE Stop: 04/28/18 14:28 Last Admin: 04/28/18 15:40 Dose: 500 units Hydromorphone HCl (Dilaudid) 2 mg IVPUSH Q4H PRN PRN Reason: Pain Last Admin: 05/03/18 17:27 Dose: 2 mg Hydromorphone HCl (Dilaudid) 2 mg IVPUSH Q2H PRN PRN Reason: Pain Last Admin: 05/10/18 08:54 Dose: 2 mg Hydromorphone HCl (Dilaudid) 2 mg IVPUSH Q1H PRN PRN Reason: Pain Last Admin: 05/13/18 12:10 Dose: 2 mg Hydromorphone HCl (Dilaudid) 4 mg PO Q4H PRN PRN Reason: Pain Last Admin: 05/17/18 09:51 Dose: 4 mg Vancomycin HCl 1,250 mg/ (Sodium Chloride) 250 mls @ 166.667 mls/hr IV Q8H [facility] Last Admin: 04/30/18 08:37 Dose: 166 mls/hr Clindamycin Phosphate 600 mg/ (Premix) 50 mls @ 100 mls/hr IV Q6H [facility] Last Admin: 04/30/18 13:56 Dose: Not Given Clindamycin Phosphate 600 mg/ (Premix) 50 mls @ 100 mls/hr IV Q6H [facility] Last Admin: 05/01/18 07:05 Dose: 100 mls/hr Levofloxacin/Dextrose 750 mg/ (Premix) 150 mls @ 100 mls/hr IV Q24H [facility] Last Admin: 05/13/18 09:28 Dose: Not Given Lactated Ringer's (Ringers, Lactated) 500 mls @ 999 mls/hr IV ASDIRECTED [facility] Last Admin: 05/13/18 14:46 Dose: 999 mls/hr Sodium Chloride (Normal Saline) 500 mls @ 999 mls/hr IV ONETIME ONE Stop: 05/14/18 10:52 Last Admin: 05/14/18 10:34 Dose: 999 mls/hr Vancomycin HCl 1,500 mg/ (Sodium Chloride) 500 mls @ 333.333 mls/hr IV Q12H [facility] Last Admin: 05/16/18 17:45 Dose: Not Given Lactated Ringer's (Ringers, Lactated) 1,000 mls @ 999 mls/hr IV ASDIRECTED [facility] Piperacillin Sod/Tazobactam (Sod 3.375 gm/ Sodium Chloride) 50 mls @ 100 mls/ hr IV Q8H [facility] Last Admin: 05/16/18 13:34 Dose: 100 mls/hr Lactated Ringer's (Ringers, Lactated) 1,000 mls @ 100 mls/hr IV ASDIRECTED [facility] Last Admin: 05/15/18 12:50 Dose: 100 mls/hr Levofloxacin/Dextrose 750 mg/ (Premix) 150 mls @ 100 mls/hr IV Q24H [facility] Last Admin: 05/17/18 16:56 Dose: 100 mls/hr Levofloxacin (Levaquin) 750 mg PO ONETIME ONE Stop: 05/14/18 14:22 Last Admin: 05/14/18 14:38 Dose: 750 mg Losartan Potassium (Cozaar) 100 mg PO DAILY [facility] Last Admin: 05/13/18 09:16 Dose: Not Given Morphine Sulfate (Morphine 20 Mg/Ml Soln) 5 mg PO Q4H PRN PRN Reason: Pain Last Admin: 05/16/18 10:27 Dose: 5 mg Morphine Sulfate (Morphine 20 Mg/Ml Soln) 10 mg PO Q4H PRN PRN Reason: Pain Last Admin: 05/16/18 17:29 Dose: 10 mg Oxycodone HCl (Oxycodone) 5 mg PO Q4H PRN PRN Reason: Pain Last Admin: 05/10/18 08:33 Dose: 5 mg Oxycodone HCl (Oxycodone) 10 mg PO Q4H PRN PRN Reason: Pain Last Admin: 05/12/18 17:58 Dose: 10 mg Potassium Chloride (Klor-Con 8) 8 meq PO BID [facility] Last Admin: 05/01/18 09:45 Dose: 8 meq Sodium Polystyrene Sulfonate (Kayexalate) 15 gm PO ONETIME ONE Stop: 05/14/18 14:15 Last Admin: 05/14/18 14:38 Dose: 15 gm Vancomycin HCl (Pharmacy To Dose - Vancomycin) 1 dose .XX ASDIRECTED [facility] Vancomycin HCl (Pharmacy To Dose - Vancomycin) 0 dose .XX ASDIRECTED [facility] - Exam General: Alert HEENT: Pupils Equal, Pupils Reactive Lungs: Clear to Auscultation Cardiovascular: Regular Rate, Regular Rhythm GI/Abdominal Exam: Normal Bowel Sounds, Non-Tender Back Exam: Normal Inspection Extremities: Pedal Edema, Limited Range of Motion Skin: Warm, Dry Wound/Incisions: Other ( tumor left hip) - Problem List & Annotations (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 SNOMED Code(s): 780490331 Code(s): C49.22 - MALIG NEOPLM OF CONN AND SOFT TISS OF LEFT LOW LIMB, INC HIP Status: Acute Current Visit: Yes (2) Prostate cancer metastatic to bone SNOMED Code(s): 77355923 Code(s): C61 - MALIGNANT NEOPLASM OF PROSTATE; C79.51 - SECONDARY MALIGNANT NEOPLASM OF BONE Status: Acute Current Visit: No (3) Anemia due to blood loss, chronic SNOMED Code(s): 136594892 Code(s): D50.0 - IRON DEFICIENCY ANEMIA SECONDARY TO BLOOD LOSS (CHRONIC) Status: Acute Current Visit: Yes (4) MSSA bacteremia SNOMED Code(s): 411147585, 494943403 Code(s): R78.81 - BACTEREMIA Status: Acute Current Visit: Yes - Problem List Review Problem List Initiated/Reviewed/Updated: Yes - Plan Plan:: 62 yo male admitted for pain management of extensive metastatic prostate cancer. Will increase fentanyl to 100 mcq q 72 h ,d/c Dilaudid , d/c oxycodone , d/c morphine , dilaudid 6 mg q4 h , collace 200 mg po BID , Miralx 30 cc daily prn for constipation. . Plan is to discharge to SNF on hospice when bed is available, avaiting [place] medicaid.Patient still not yet evaluated by hospice For left thigh wound - local dressing , sepsis- resolved - continue Rocephine 1 gram iv based on MSSA cx for a total of 7 days anemia due to blood loss, chronic disease - s/p transfusion patient 2 unit of blood, hb stable
[2018-05-19] MEDS: cefTRIAXone 2 GM in Premix Bag 1 BAG IV SCH (17:01)
[2018-05-19] MEDS: fentaNYL 100 MCG/HR Transdermal Patch TOP SCH (18:30)
[2018-05-19] MEDS: Albuterol 8 GM Inhaler INH PRN (20:48)
[2018-05-20] MEDS: HYDROmorphone 2 MG Tab PO PRN ×5 (02:20→23:35)
[2018-05-20] MEDS: Omeprazole 20 MG Cap.CR PO SCH (06:43)
[2018-05-20] MEDS: Gabapentin 300 MG Cap PO SCH ×3 (06:43→21:17)
[2018-05-20] MEDS: Nystatin Topical Powder 15 GM Bottle TOP SCH ×3 (06:50→21:18)
[2018-05-20] MEDS: predniSONE 5 MG Tab PO SCH ×2 (09:00→17:11)
[2018-05-20] MEDS: Apixaban 5 MG Tab PO SCH ×2 (09:20→21:17)
[2018-05-20] MEDS: Aspirin 325 MG Tab PO SCH (09:20)
[2018-05-20] MEDS: Docusate Sodium 100 MG Cap PO SCH ×3 (09:20→21:40)
[2018-05-20] MEDS: Cholecalciferol (Vitamin D3) 1,000 Unit Tab PO SCH (09:20)
[2018-05-20] MEDS: Calcium Carbonate 500 MG Tab.Chew PO SCH (09:20)
[2018-05-20] MEDS: DSS PO SCH (09:44)
[2018-05-20] MEDS: [UNRECOGNIZED DRUG - OTHER] PO SCH (09:44)
[2018-05-20] MEDS: Polyethylene Glycol 3350 Powder 17 GM Packet PO SCH (09:44)
[2018-05-20] MEDS: IRON FUMARATE PO SCH (09:44)
--- NOTE | 2018-05-20 14:51 | PCM.PN ---
- General Info Date of Service: 05/20/18 Admission Dx/Problem (Free Text): patient is awake aleart , seems comfortable , answer simple questions. - Review of Systems General: Reports: No Symptoms HEENT: Reports: No Symptoms Pulmonary: Reports: No Symptoms Cardiovascular: Reports: No Symptoms Gastrointestinal: Reports: No Symptoms Genitourinary: Reports: No Symptoms Musculoskeletal: Reports: Leg Pain Skin: Reports: No Symptoms Neurological: Reports: No Symptoms Psychiatric: Reports: No Symptoms - Patient Data Vitals - Most Recent: Last Vital Signs Temp 98.8 F 05/20/18 09:00 Pulse 110 H 05/20/18 09:00 Resp 21 H 05/20/18 09:00 BP 107/60 05/20/18 09:00 Pulse Ox 92 L 05/20/18 09:00 Weight - Most Recent: 245 lb 13.047 oz I&O - Last 24 Hours: Intake & Output 05/19/18 05/20/18 05/20/18 22:59 06:59 14:59 Intake Total 650 350 Output Total 250 0 Balance 400 350 Med Orders - Current: Current Medications Albuterol (Ventolin Hfa) 8 gm INH Q6HRRT PRN PRN Reason: Wheezing Last Admin: 05/19/18 20:48 Dose: 2 dose Apixaban (Eliquis) 5 mg PO BID [facility] Last Admin: 05/20/18 09:20 Dose: 5 mg Aspirin (Aspirin) 325 mg PO DAILY [facility] Last Admin: 05/20/18 09:20 Dose: 325 mg Calcium Carbonate/Glycine (Tums) 1,000 mg PO DAILY [facility] Last Admin: 05/20/18 09:20 Dose: 1,000 mg Cholecalciferol (Vitamin D3) 3,000 units PO DAILY [facility] Last Admin: 05/20/18 09:20 Dose: 3,000 units Docusate Sodium (Colace) 200 mg PO BID [facility] Last Admin: 05/20/18 09:20 Dose: 200 mg Fentanyl (Duragesic) 100 mcg TOP Q72H [facility] Last Admin: 05/19/18 18:30 Dose: 100 mcg Gabapentin (Neurontin) 300 mg PO TID [facility] Last Admin: 05/20/18 13:17 Dose: 300 mg Hydromorphone HCl (Dilaudid) 6 mg PO Q4H PRN PRN Reason: Pain Last Admin: 05/20/18 13:15 Dose: 6 mg Nystatin (Nystop) 0 gm TOP TID [facility] Last Admin: 05/20/18 06:50 Dose: 1 applic Omeprazole (Omeprazole) 20 mg PO ACBREAKFAST [facility] Last Admin: 05/20/18 06:43 Dose: 20 mg Ondansetron HCl (Zofran) 4 mg IVPUSH Q4H PRN PRN Reason: Nausea/Vomiting Last Admin: 05/01/18 06:32 Dose: 4 mg [id number]/Iron Fumarate /Fa/Dss [ 19 Tablet] 1 Tab 1 each PO DAILY [facility] Last Admin: 05/20/18 09:44 Dose: Not Given Polyethylene Glycol (Miralax) 17 gm PO DAILY [facility] Last Admin: 05/20/18 09:44 Dose: Not Given Polyethylene Glycol (Miralax) 17 gm PO BEDTIME PRN PRN Reason: Constipation Prednisone (Prednisone) 5 mg PO BIDMEALS [facility] Last Admin: 05/20/18 09:00 Dose: 5 mg Prochlorperazine Maleate (Compazine) 10 mg PO Q6H PRN PRN Reason: Nausea Discontinued Medications Docusate Sodium (Colace) 100 mg PO DAILY [facility] Last Admin: 05/13/18 09:14 Dose: 100 mg Enoxaparin Sodium (Lovenox) 40 mg SUBCUT Q24H [facility] Last Admin: 05/08/18 16:14 Dose: 40 mg Enoxaparin Sodium (Lovenox) 40 mg SUBCUT Q24H [facility] Last Admin: 05/17/18 16:36 Dose: Not Given Fentanyl (Duragesic) 25 mcg TOP Q72H [facility] Last Admin: 05/01/18 08:16 Dose: 25 mcg Fentanyl (Duragesic) 50 mcg TOP Q72H [facility] Last Admin: 05/11/18 09:58 Dose: 50 mcg Fentanyl (Duragesic) 75 mcg TOP Q72H [facility] Last Admin: 05/12/18 16:54 Dose: 75 mcg Heparin Sodium (Porcine) (Heparin Lock Flush 100 Units/Ml) 500 units FLUSH ONETIME ONE Stop: 04/28/18 14:28 Last Admin: 04/28/18 15:40 Dose: 500 units Hydromorphone HCl (Dilaudid) 2 mg IVPUSH Q4H PRN PRN Reason: Pain Last Admin: 05/03/18 17:27 Dose: 2 mg Hydromorphone HCl (Dilaudid) 2 mg IVPUSH Q2H PRN PRN Reason: Pain Last Admin: 05/10/18 08:54 Dose: 2 mg Hydromorphone HCl (Dilaudid) 2 mg IVPUSH Q1H PRN PRN Reason: Pain Last Admin: 05/13/18 12:10 Dose: 2 mg Hydromorphone HCl (Dilaudid) 4 mg PO Q4H PRN PRN Reason: Pain Last Admin: 05/17/18 09:51 Dose: 4 mg Vancomycin HCl 1,250 mg/ (Sodium Chloride) 250 mls @ 166.667 mls/hr IV Q8H [facility] Last Admin: 04/30/18 08:37 Dose: 166 mls/hr Clindamycin Phosphate 600 mg/ (Premix) 50 mls @ 100 mls/hr IV Q6H [facility] Last Admin: 04/30/18 13:56 Dose: Not Given Clindamycin Phosphate 600 mg/ (Premix) 50 mls @ 100 mls/hr IV Q6H [facility] Last Admin: 05/01/18 07:05 Dose: 100 mls/hr Levofloxacin/Dextrose 750 mg/ (Premix) 150 mls @ 100 mls/hr IV Q24H [facility] Last Admin: 05/13/18 09:28 Dose: Not Given Lactated Ringer's (Ringers, Lactated) 500 mls @ 999 mls/hr IV ASDIRECTED [facility] Last Admin: 05/13/18 14:46 Dose: 999 mls/hr Sodium Chloride (Normal Saline) 500 mls @ 999 mls/hr IV ONETIME ONE Stop: 05/14/18 10:52 Last Admin: 05/14/18 10:34 Dose: 999 mls/hr Vancomycin HCl 1,500 mg/ (Sodium Chloride) 500 mls @ 333.333 mls/hr IV Q12H [facility] Last Admin: 05/16/18 17:45 Dose: Not Given Lactated Ringer's (Ringers, Lactated) 1,000 mls @ 999 mls/hr IV ASDIRECTED [facility] Piperacillin Sod/Tazobactam (Sod 3.375 gm/ Sodium Chloride) 50 mls @ 100 mls/ hr IV Q8H [facility] Last Admin: 08/20/18 13:34 Dose: 100 mls/hr Lactated Ringer's (Ringers, Lactated) 1,000 mls @ 100 mls/hr IV ASDIRECTED [facility] Last Admin: 05/15/18 12:50 Dose: 100 mls/hr Ceftriaxone Sodium/Dextrose 2 (gm/ Premix) 50 mls @ 100 mls/hr IV Q24H [facility] Last Admin: 05/19/18 17:01 Dose: 100 mls/hr Levofloxacin/Dextrose 750 mg/ (Premix) 150 mls @ 100 mls/hr IV Q24H [facility] Last Admin: 05/17/18 16:56 Dose: 100 mls/hr Levofloxacin (Levaquin) 750 mg PO ONETIME ONE Stop: 05/14/18 14:22 Last Admin: 05/14/18 14:38 Dose: 750 mg Losartan Potassium (Cozaar) 100 mg PO DAILY [facility] Last Admin: 05/13/18 09:16 Dose: Not Given Morphine Sulfate (Morphine 20 Mg/Ml Soln) 5 mg PO Q4H PRN PRN Reason: Pain Last Admin: 05/16/18 10:27 Dose: 5 mg Morphine Sulfate (Morphine 20 Mg/Ml Soln) 10 mg PO Q4H PRN PRN Reason: Pain Last Admin: 05/16/18 17:29 Dose: 10 mg Oxycodone HCl (Oxycodone) 5 mg PO Q4H PRN PRN Reason: Pain Last Admin: 05/10/18 08:33 Dose: 5 mg Oxycodone HCl (Oxycodone) 10 mg PO Q4H PRN PRN Reason: Pain Last Admin: 05/12/18 17:58 Dose: 10 mg Potassium Chloride (Klor-Con 8) 8 meq PO BID [facility] Last Admin: 05/01/18 09:45 Dose: 8 meq Sodium Polystyrene Sulfonate (Kayexalate) 15 gm PO ONETIME ONE Stop: 05/14/18 14:15 Last Admin: 05/14/18 14:38 Dose: 15 gm Vancomycin HCl (Pharmacy To Dose - Vancomycin) 1 dose .XX ASDIRECTED [facility] Vancomycin HCl (Pharmacy To Dose - Vancomycin) 0 dose .XX ASDIRECTED [facility] - Exam General: Alert HEENT: Pupils Equal Neck: Supple, Trachea Midline Lungs: Clear to Auscultation Cardiovascular: Regular Rate, Regular Rhythm GI/Abdominal Exam: Normal Bowel Sounds, Non-Tender Extremities: Normal Inspection - Problem List & Annotations (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 SNOMED Code(s): 080845530 Code(s): C49.22 - MALIG NEOPLM OF CONN AND SOFT TISS OF LEFT LOW LIMB, INC HIP Status: Acute Current Visit: Yes (2) Prostate cancer metastatic to bone SNOMED Code(s): 19910926 Code(s): C61 - MALIGNANT NEOPLASM OF PROSTATE; C79.51 - SECONDARY MALIGNANT NEOPLASM OF BONE Status: Acute Current Visit: No (3) Anemia due to blood loss, chronic SNOMED Code(s): 034263839 Code(s): D50.0 - IRON DEFICIENCY ANEMIA SECONDARY TO BLOOD LOSS (CHRONIC) Status: Acute Current Visit: Yes (4) MSSA bacteremia SNOMED Code(s): 166842443, 170126381 Code(s): R78.81 - BACTEREMIA Status: Acute Current Visit: Yes - Problem List Review Problem List Initiated/Reviewed/Updated: Yes - My Orders Last 24 Hours: My Active Orders 05/19/18 17:45 Comfort Measures [OM.PC] Routine 05/19/18 19:34 Resuscitation Status Routine - Plan Plan:: 62 yo male admitted for pain management of extensive metastatic prostate cancer. fentanyl to 100 mcq q 72 h ,d/c Dilaudid , dilaudid 6 mg q4 h , collace 200 mg po BID , Miralx 30 cc daily prn for constipation. . Plan is to discharge to SNF on hospice when bed is available, avaiting [place] medicaid.Patient still not yet evaluated by hospice For left thigh wound - local dressing , anemia due to blood loss, chronic disease - s/p transfusion patient 2 unit of blood, hb stable comfort measures ,
[2018-05-21] MEDS: Nystatin Topical Powder 15 GM Bottle TOP SCH ×3 (06:26→22:37)
[2018-05-21] MEDS: Gabapentin 300 MG Cap PO SCH ×3 (06:26→22:11)
[2018-05-21] MEDS: HYDROmorphone 2 MG Tab PO PRN ×2 (06:26→10:26)
[2018-05-21] MEDS: Omeprazole 20 MG Cap.CR PO SCH (06:30)
[2018-05-21] MEDS: Cholecalciferol (Vitamin D3) 1,000 Unit Tab PO SCH (08:58)
[2018-05-21] MEDS: predniSONE 5 MG Tab PO SCH ×2 (08:58→16:28)
[2018-05-21] MEDS: Calcium Carbonate 500 MG Tab.Chew PO SCH (08:58)
[2018-05-21] MEDS: Polyethylene Glycol 3350 Powder 17 GM Packet PO SCH (08:59)
[2018-05-21] MEDS: Apixaban 5 MG Tab PO SCH ×2 (08:59→22:11)
[2018-05-21] MEDS: Docusate Sodium 100 MG Cap PO SCH ×2 (08:59→22:11)
[2018-05-21] MEDS: Aspirin 325 MG Tab PO SCH (08:59)
[2018-05-21] MEDS: Acetaminophen 325 MG Tab PO PRN (09:03)
[2018-05-21] MEDS: DSS PO SCH (09:06)
[2018-05-21] MEDS: [UNRECOGNIZED DRUG - OTHER] PO SCH (09:06)
[2018-05-21] MEDS: IRON FUMARATE PO SCH (09:06)
--- NOTE | 2018-05-21 14:05 | PCM.PN ---
- General Info Date of Service: 05/21/18 Admission Dx/Problem (Free Text): Patient in bed , does not seem in any pain, doesnt answer questions all the time and unsure if he answer them appropriately - Patient Data Vitals - Most Recent: Last Vital Signs Temp 98.5 F 05/21/18 08:55 Pulse 108 H 05/20/18 19:37 Resp 20 05/21/18 08:55 BP 129/73 05/21/18 08:55 Pulse Ox 93 L 05/21/18 08:55 Weight - Most Recent: 245 lb 13.047 oz I&O - Last 24 Hours: Intake & Output 05/20/18 05/21/18 05/21/18 22:59 06:59 14:59 Intake Total 300 620 Output Total 0 Balance 300 620 Med Orders - Current: Current Medications Acetaminophen (Tylenol) 650 mg PO Q6H PRN PRN Reason: Fever Last Admin: 05/21/18 09:03 Dose: 650 mg Albuterol (Ventolin Hfa) 8 gm INH Q6HRRT PRN PRN Reason: Wheezing Last Admin: 05/19/18 20:48 Dose: 2 dose Apixaban (Eliquis) 5 mg PO BID [facility] Last Admin: 05/21/18 08:59 Dose: 5 mg Aspirin (Aspirin) 325 mg PO DAILY [facility] Last Admin: 05/21/18 08:59 Dose: 325 mg Calcium Carbonate/Glycine (Tums) 1,000 mg PO DAILY [facility] Last Admin: 05/21/18 08:58 Dose: 1,000 mg Cholecalciferol (Vitamin D3) 3,000 units PO DAILY [facility] Last Admin: 05/21/18 08:58 Dose: 3,000 units Docusate Sodium (Colace) 200 mg PO BID [facility] Last Admin: 05/21/18 08:59 Dose: 200 mg Fentanyl (Duragesic) 100 mcg TOP Q72H [facility] Last Admin: 05/19/18 18:30 Dose: 100 mcg Gabapentin (Neurontin) 300 mg PO TID [facility] Last Admin: 05/21/18 06:26 Dose: 300 mg Hydromorphone HCl (Dilaudid) 6 mg PO Q4H [facility] Nystatin (Nystop) 0 gm TOP TID [facility] Last Admin: 05/21/18 06:26 Dose: 1 applic Omeprazole (Omeprazole) 20 mg PO ACBREAKFAST [facility] Last Admin: 05/21/18 06:30 Dose: 20 mg Ondansetron HCl (Zofran) 4 mg IVPUSH Q4H PRN PRN Reason: Nausea/Vomiting Last Admin: 05/01/18 06:32 Dose: 4 mg Qdx389/Iron Fumarate /Fa/Dss [ 19 Tablet] 1 Tab 1 each PO DAILY [facility] Last Admin: 05/21/18 09:06 Dose: Not Given Polyethylene Glycol (Miralax) 17 gm PO DAILY [facility] Last Admin: 05/21/18 08:59 Dose: 17 gm Polyethylene Glycol (Miralax) 17 gm PO BEDTIME PRN PRN Reason: Constipation Prednisone (Prednisone) 5 mg PO BIDMEALS [facility] Last Admin: 05/21/18 08:58 Dose: 5 mg Prochlorperazine Maleate (Compazine) 10 mg PO Q6H PRN PRN Reason: Nausea Discontinued Medications Docusate Sodium (Colace) 100 mg PO DAILY [facility] Last Admin: 05/13/18 09:14 Dose: 100 mg Enoxaparin Sodium (Lovenox) 40 mg SUBCUT Q24H [facility] Last Admin: 05/08/18 16:14 Dose: 40 mg Enoxaparin Sodium (Lovenox) 40 mg SUBCUT Q24H [facility] Last Admin: 05/17/18 16:36 Dose: Not Given Fentanyl (Duragesic) 25 mcg TOP Q72H [facility] Last Admin: 05/01/18 08:16 Dose: 25 mcg Fentanyl (Duragesic) 50 mcg TOP Q72H [facility] Last Admin: 05/11/18 09:58 Dose: 50 mcg Fentanyl (Duragesic) 75 mcg TOP Q72H [facility] Last Admin: 05/12/18 16:54 Dose: 75 mcg Heparin Sodium (Porcine) (Heparin Lock Flush 100 Units/Ml) 500 units FLUSH ONETIME ONE Stop: 04/28/18 14:28 Last Admin: 04/28/18 15:40 Dose: 500 units Hydromorphone HCl (Dilaudid) 2 mg IVPUSH Q4H PRN PRN Reason: Pain Last Admin: 05/03/18 17:27 Dose: 2 mg Hydromorphone HCl (Dilaudid) 2 mg IVPUSH Q2H PRN PRN Reason: Pain Last Admin: 05/10/18 08:54 Dose: 2 mg Hydromorphone HCl (Dilaudid) 2 mg IVPUSH Q1H PRN PRN Reason: Pain Last Admin: 05/13/18 12:10 Dose: 2 mg Hydromorphone HCl (Dilaudid) 4 mg PO Q4H PRN PRN Reason: Pain Last Admin: 05/17/18 09:51 Dose: 4 mg Hydromorphone HCl (Dilaudid) 6 mg PO Q4H PRN PRN Reason: Pain Last Admin: 05/21/18 10:26 Dose: 6 mg Vancomycin HCl 1,250 mg/ (Sodium Chloride) 250 mls @ 166.667 mls/hr IV Q8H [facility] Last Admin: 04/30/18 08:37 Dose: 166 mls/hr Clindamycin Phosphate 600 mg/ (Premix) 50 mls @ 100 mls/hr IV Q6H [facility] Last Admin: 04/30/18 13:56 Dose: Not Given Clindamycin Phosphate 600 mg/ (Premix) 50 mls @ 100 mls/hr IV Q6H [facility] Last Admin: 05/01/18 07:05 Dose: 100 mls/hr Levofloxacin/Dextrose 750 mg/ (Premix) 150 mls @ 100 mls/hr IV Q24H [facility] Last Admin: 05/13/18 09:28 Dose: Not Given Lactated Ringer's (Ringers, Lactated) 500 mls @ 999 mls/hr IV ASDIRECTED [facility] Last Admin: 05/13/18 14:46 Dose: 999 mls/hr Sodium Chloride (Normal Saline) 500 mls @ 999 mls/hr IV ONETIME ONE Stop: 05/14/18 10:52 Last Admin: 05/14/18 10:34 Dose: 999 mls/hr Vancomycin HCl 1,500 mg/ (Sodium Chloride) 500 mls @ 333.333 mls/hr IV Q12H [facility] Last Admin: 05/16/18 17:45 Dose: Not Given Lactated Ringer's (Ringers, Lactated) 1,000 mls @ 999 mls/hr IV ASDIRECTED [facility] Piperacillin Sod/Tazobactam (Sod 3.375 gm/ Sodium Chloride) 50 mls @ 100 mls/ hr IV Q8H [facility] Last Admin: 05/16/18 13:34 Dose: 100 mls/hr Lactated Ringer's (Ringers, Lactated) 1,000 mls @ 100 mls/hr IV ASDIRECTED [facility] Last Admin: 05/15/18 12:50 Dose: 100 mls/hr Ceftriaxone Sodium/Dextrose 2 (gm/ Premix) 50 mls @ 100 mls/hr IV Q24H [facility] Last Admin: 05/19/18 17:01 Dose: 100 mls/hr Levofloxacin/Dextrose 750 mg/ (Premix) 150 mls @ 100 mls/hr IV Q24H [facility] Last Admin: 05/17/18 16:56 Dose: 100 mls/hr Levofloxacin (Levaquin) 750 mg PO ONETIME ONE Stop: 05/14/18 14:22 Last Admin: 05/14/18 14:38 Dose: 750 mg Losartan Potassium (Cozaar) 100 mg PO DAILY [facility] Last Admin: 05/13/18 09:16 Dose: Not Given Morphine Sulfate (Morphine 20 Mg/Ml Soln) 5 mg PO Q4H PRN PRN Reason: Pain Last Admin: 05/16/18 10:27 Dose: 5 mg Morphine Sulfate (Morphine 20 Mg/Ml Soln) 10 mg PO Q4H PRN PRN Reason: Pain Last Admin: 05/16/18 17:29 Dose: 10 mg Oxycodone HCl (Oxycodone) 5 mg PO Q4H PRN PRN Reason: Pain Last Admin: 05/10/18 08:33 Dose: 5 mg Oxycodone HCl (Oxycodone) 10 mg PO Q4H PRN PRN Reason: Pain Last Admin: 05/12/18 17:58 Dose: 10 mg Potassium Chloride (Klor-Con 8) 8 meq PO BID [facility] Last Admin: 05/01/18 09:45 Dose: 8 meq Sodium Polystyrene Sulfonate (Kayexalate) 15 gm PO ONETIME ONE Stop: 05/14/18 14:15 Last Admin: 05/14/18 14:38 Dose: 15 gm Vancomycin HCl (Pharmacy To Dose - Vancomycin) 1 dose .XX ASDIRECTED [facility] Vancomycin HCl (Pharmacy To Dose - Vancomycin) 0 dose .XX ASDIRECTED [facility] - Exam General: Alert HEENT: Pupils Equal Neck: Supple Lungs: Decreased Breath Sounds, Other (coarse breath sounds) Cardiovascular: Regular Rhythm, Tachycardia GI/Abdominal Exam: Normal Bowel Sounds, Soft, Non-Tender, No Organomegaly, No Distention Back Exam: Normal Inspection Extremities: Pedal Edema, Other (leg swelling the entire length,left hip tumor) - Problem List & Annotations (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 SNOMED Code(s): 700263913 Code(s): C49.22 - MALIG NEOPLM OF CONN AND SOFT TISS OF LEFT LOW LIMB, INC HIP Status: Acute Current Visit: Yes (2) Prostate cancer metastatic to bone SNOMED Code(s): 34500008 Code(s): C61 - MALIGNANT NEOPLASM OF PROSTATE; C79.51 - SECONDARY MALIGNANT NEOPLASM OF BONE Status: Acute Current Visit: No (3) Anemia due to blood loss, chronic SNOMED Code(s): 620212147 Code(s): D50.0 - IRON DEFICIENCY ANEMIA SECONDARY TO BLOOD LOSS (CHRONIC) Status: Acute Current Visit: Yes (4) MSSA bacteremia SNOMED Code(s): 133602394, 931326893 Code(s): R78.81 - BACTEREMIA Status: Acute Current Visit: Yes - Problem List Review Problem List Initiated/Reviewed/Updated: Yes - My Orders Last 24 Hours: My Active Orders 05/20/18 21:38 Acetaminophen [Tylenol] 650 mg PO Q6H PRN 05/21/18 14:30 HYDROmorphone [Dilaudid] 6 mg PO Q4H - Plan Plan:: 62 yo male admitted for pain management of extensive metastatic prostate cancer. fentanyl to 100 mcq q 72 h , dilaudid 6 mg q4 h , collace 200 mg po BID , Miralx 30 cc daily prn for constipation. . Plan is to discharge to SNF on hospice when bed is available, avaiting [place] medicaid.Patient still not yet evaluated by hospice For left thigh wound - local dressing , Patient is comfort measures , no more blood work , no more antibiotics, pain management only
[2018-05-21] MEDS: HYDROmorphone 2 MG Tab PO SCH ×2 (14:18→18:22)
[2018-05-22] MEDS: Acetaminophen 325 MG Tab PO PRN (00:36)
[2018-05-22] MEDS: Gabapentin 300 MG Cap PO SCH ×2 (05:48→14:49)
[2018-05-22] MEDS: Nystatin Topical Powder 15 GM Bottle TOP SCH ×3 (05:49→22:08)
[2018-05-22] MEDS: Omeprazole 20 MG Cap.CR PO SCH (06:31)
[2018-05-22] MEDS: Cholecalciferol (Vitamin D3) 1,000 Unit Tab PO SCH (08:55)
[2018-05-22] MEDS: predniSONE 5 MG Tab PO SCH (08:55)
[2018-05-22] MEDS: Aspirin 325 MG Tab PO SCH (08:55)
[2018-05-22] MEDS: Apixaban 5 MG Tab PO SCH (08:55)
[2018-05-22] MEDS: Docusate Sodium 100 MG Cap PO SCH ×2 (08:55→09:02)
[2018-05-22] MEDS: Calcium Carbonate 500 MG Tab.Chew PO SCH (08:56)
[2018-05-22] MEDS: Polyethylene Glycol 3350 Powder 17 GM Packet PO SCH ×2 (08:56→09:03)
[2018-05-22] MEDS ORDERED: Morphine Oral Concentrate 20 MG/ML 30 ML Bottle SL PRN (08:59)
[2018-05-22] MEDS: DSS PO SCH (09:03)
[2018-05-22] MEDS: [UNRECOGNIZED DRUG - OTHER] PO SCH (09:03)
[2018-05-22] MEDS: IRON FUMARATE PO SCH (09:03)
[2018-05-22] MEDS: Morphine Oral Concentrate 20 MG/ML 30 ML Bottle SL PRN ×3 (10:16→22:00)
[2018-05-22] MEDS ORDERED: Hyoscyamine 0.125 MG Tab.SL SL PRN (15:28)
[2018-05-22] MEDS ORDERED: Hyoscyamine 0.125 MG Tab.SL SL SCH (15:30)
--- NOTE | 2018-05-22 17:34 | PCM.PN ---
- General Info Date of Service: 05/22/18 Admission Dx/Problem (Free Text): dilaudid d./c and changed to morphine sl. 20 mg q 4 h prn for pain , pain controlled - Patient Data Vitals - Most Recent: Last Vital Signs Temp 98.2 F 05/22/18 09:00 Pulse 114 H 05/22/18 09:00 Resp 15 05/22/18 09:00 BP 130/76 05/22/18 09:00 Pulse Ox 91 L 05/22/18 09:00 Weight - Most Recent: 245 lb 13.047 oz I&O - Last 24 Hours: Intake & Output 05/22/18 05/22/18 05/22/18 06:59 14:59 22:59 Intake Total 300 80 Balance 300 80 Med Orders - Current: Current Medications Albuterol (Ventolin Hfa) 8 gm INH Q6HRRT PRN PRN Reason: Wheezing Last Admin: 05/19/18 20:48 Dose: 2 dose Fentanyl (Duragesic) 100 mcg TOP Q72H [facility] Last Admin: 05/19/18 18:30 Dose: 100 mcg Hyoscyamine (Hyomax-Sl) 0.125 mg SL Q4H PRN PRN Reason: excessive secretions Last Admin: 05/22/18 16:44 Dose: 0.125 mg Morphine Sulfate (Morphine 20 Mg/Ml Soln) 20 mg SL Q4H PRN PRN Reason: Pain Last Admin: 05/22/18 16:44 Dose: 20 mg Nystatin (Nystop) 0 gm TOP TID [facility] Last Admin: 05/22/18 14:50 Dose: 1 applic Ondansetron HCl (Zofran) 4 mg IVPUSH Q4H PRN PRN Reason: Nausea/Vomiting Last Admin: 05/01/18 06:32 Dose: 4 mg Discontinued Medications Acetaminophen (Tylenol) 650 mg PO Q6H PRN PRN Reason: Fever Last Admin: 05/22/18 00:36 Dose: 650 mg Apixaban (Eliquis) 5 mg PO BID [facility] Last Admin: 05/22/18 08:55 Dose: 5 mg Aspirin (Aspirin) 325 mg PO DAILY [facility] Last Admin: 05/22/18 08:55 Dose: 325 mg Calcium Carbonate/Glycine (Tums) 1,000 mg PO DAILY [facility] Last Admin: 05/22/18 08:56 Dose: 1,000 mg Cholecalciferol (Vitamin D3) 3,000 units PO DAILY [facility] Last Admin: 05/22/18 08:55 Dose: 3,000 units Docusate Sodium (Colace) 100 mg PO DAILY [facility] Last Admin: 05/13/18 09:14 Dose: 100 mg Docusate Sodium (Colace) 200 mg PO BID [facility] Last Admin: 05/22/18 09:02 Dose: Not Given Enoxaparin Sodium (Lovenox) 40 mg SUBCUT Q24H [facility] Last Admin: 05/08/18 16:14 Dose: 40 mg Enoxaparin Sodium (Lovenox) 40 mg SUBCUT Q24H [facility] Last Admin: 05/17/18 16:36 Dose: Not Given Fentanyl (Duragesic) 25 mcg TOP Q72H [facility] Last Admin: 05/01/18 08:16 Dose: 25 mcg Fentanyl (Duragesic) 50 mcg TOP Q72H [facility] Last Admin: 05/11/18 09:58 Dose: 50 mcg Fentanyl (Duragesic) 75 mcg TOP Q72H [facility] Last Admin: 05/12/18 16:54 Dose: 75 mcg Gabapentin (Neurontin) 300 mg PO TID [facility] Last Admin: 05/22/18 14:49 Dose: Not Given Heparin Sodium (Porcine) (Heparin Lock Flush 100 Units/Ml) 500 units FLUSH ONETIME ONE Stop: 04/28/18 14:28 Last Admin: 04/28/18 15:40 Dose: 500 units Hydromorphone HCl (Dilaudid) 2 mg IVPUSH Q4H PRN PRN Reason: Pain Last Admin: 05/03/18 17:27 Dose: 2 mg Hydromorphone HCl (Dilaudid) 2 mg IVPUSH Q2H PRN PRN Reason: Pain Last Admin: 05/10/18 08:54 Dose: 2 mg Hydromorphone HCl (Dilaudid) 2 mg IVPUSH Q1H PRN PRN Reason: Pain Last Admin: 05/13/18 12:10 Dose: 2 mg Hydromorphone HCl (Dilaudid) 4 mg PO Q4H PRN PRN Reason: Pain Last Admin: 05/17/18 09:51 Dose: 4 mg Hydromorphone HCl (Dilaudid) 6 mg PO Q4H PRN PRN Reason: Pain Last Admin: 05/21/18 10:26 Dose: 6 mg Hydromorphone HCl (Dilaudid) 6 mg PO Q4H [facility] Last Admin: 05/21/18 18:22 Dose: 6 mg Hyoscyamine (Hyomax-Sl) 0.125 mg SL Q4H [facility] Vancomycin HCl 1,250 mg/ (Sodium Chloride) 250 mls @ 166.667 mls/hr IV Q8H [facility] Last Admin: 04/30/18 08:37 Dose: 166 mls/hr Clindamycin Phosphate 600 mg/ (Premix) 50 mls @ 100 mls/hr IV Q6H [facility] Last Admin: 04/30/18 13:56 Dose: Not Given Clindamycin Phosphate 600 mg/ (Premix) 50 mls @ 100 mls/hr IV Q6H [facility] Last Admin: 05/01/18 07:05 Dose: 100 mls/hr Levofloxacin/Dextrose 750 mg/ (Premix) 150 mls @ 100 mls/hr IV Q24H [facility] Last Admin: 05/13/18 09:28 Dose: Not Given Lactated Ringer's (Ringers, Lactated) 500 mls @ 999 mls/hr IV ASDIRECTED [facility] Last Admin: 05/13/18 14:46 Dose: 999 mls/hr Sodium Chloride (Normal Saline) 500 mls @ 999 mls/hr IV ONETIME ONE Stop: 05/14/18 10:52 Last Admin: 05/14/18 10:34 Dose: 999 mls/hr Vancomycin HCl 1,500 mg/ (Sodium Chloride) 500 mls @ 333.333 mls/hr IV Q12H [facility] Last Admin: 05/16/18 17:45 Dose: Not Given Lactated Ringer's (Ringers, Lactated) 1,000 mls @ 999 mls/hr IV ASDIRECTED [facility] Piperacillin Sod/Tazobactam (Sod 3.375 gm/ Sodium Chloride) 50 mls @ 100 mls/ hr IV Q8H [facility] Last Admin: 05/16/18 13:34 Dose: 100 mls/hr Lactated Ringer's (Ringers, Lactated) 1,000 mls @ 100 mls/hr IV ASDIRECTED [facility] Last Admin: 05/15/18 12:50 Dose: 100 mls/hr Ceftriaxone Sodium/Dextrose 2 (gm/ Premix) 50 mls @ 100 mls/hr IV Q24H [facility] Last Admin: 05/19/18 17:01 Dose: 100 mls/hr Levofloxacin/Dextrose 750 mg/ (Premix) 150 mls @ 100 mls/hr IV Q24H [facility] Last Admin: 05/17/18 16:56 Dose: 100 mls/hr Levofloxacin (Levaquin) 750 mg PO ONETIME ONE Stop: 05/14/18 14:22 Last Admin: 05/14/18 14:38 Dose: 750 mg Losartan Potassium (Cozaar) 100 mg PO DAILY [facility] Last Admin: 05/13/18 09:16 Dose: Not Given Morphine Sulfate (Morphine 20 Mg/Ml Soln) 5 mg PO Q4H PRN PRN Reason: Pain Last Admin: 05/16/18 10:27 Dose: 5 mg Morphine Sulfate (Morphine 20 Mg/Ml Soln) 10 mg PO Q4H PRN PRN Reason: Pain Last Admin: 05/16/18 17:29 Dose: 10 mg Morphine Sulfate (Morphine 20 Mg/Ml Soln) 5 mg SL Q4H PRN PRN Reason: Pain Omeprazole (Omeprazole) 20 mg PO ACBREAKFAST [facility] Last Admin: 05/22/18 06:31 Dose: 20 mg Oxycodone HCl (Oxycodone) 5 mg PO Q4H PRN PRN Reason: Pain Last Admin: 05/10/18 08:33 Dose: 5 mg Oxycodone HCl (Oxycodone) 10 mg PO Q4H PRN PRN Reason: Pain Last Admin: 05/12/18 17:58 Dose: 10 mg Xmm975/Iron Fumarate /Fa/Dss [ 19 Tablet] 1 Tab 1 each PO DAILY [facility] Last Admin: 05/22/18 09:03 Dose: Not Given Polyethylene Glycol (Miralax) 17 gm PO DAILY [facility] Last Admin: 05/22/18 09:03 Dose: Not Given Polyethylene Glycol (Miralax) 17 gm PO BEDTIME PRN PRN Reason: Constipation Potassium Chloride (Klor-Con 8) 8 meq PO BID [facility] Last Admin: 05/01/18 09:45 Dose: 8 meq Prednisone (Prednisone) 5 mg PO BIDMEALS [facility] Last Admin: 05/22/18 08:55 Dose: 5 mg Prochlorperazine Maleate (Compazine) 10 mg PO Q6H PRN PRN Reason: Nausea Sodium Polystyrene Sulfonate (Kayexalate) 15 gm PO ONETIME ONE Stop: 05/14/18 14:15 Last Admin: 05/14/18 14:38 Dose: 15 gm Vancomycin HCl (Pharmacy To Dose - Vancomycin) 1 dose .XX ASDIRECTED [facility] Vancomycin HCl (Pharmacy To Dose - Vancomycin) 0 dose .XX ASDIRECTED [facility] - Exam Quality Assessment: Supplemental Oxygen General: Alert HEENT: Pupils Equal Neck: Supple, Trachea Midline, No Thyromegaly Lungs: Other (coarse breath sounds) Cardiovascular: Regular Rhythm, No Murmurs, Tachycardia GI/Abdominal Exam: Normal Bowel Sounds, Soft, Non-Tender, No Organomegaly, No Distention Back Exam: Normal Inspection Extremities: Pedal Edema, Other (left leg edema) Skin: Other (left thigh tumopr) Neurological: No New Focal Deficit Psy/Mental Status: Alert - Problem List & Annotations (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 SNOMED Code(s): 688385110 Code(s): C49.22 - MALIG NEOPLM OF CONN AND SOFT TISS OF LEFT LOW LIMB, INC HIP Status: Acute Current Visit: Yes (2) Prostate cancer metastatic to bone SNOMED Code(s): 14438977 Code(s): C61 - MALIGNANT NEOPLASM OF PROSTATE; C79.51 - SECONDARY MALIGNANT NEOPLASM OF BONE Status: Acute Current Visit: No (3) Anemia due to blood loss, chronic SNOMED Code(s): 386669323 Code(s): D50.0 - IRON DEFICIENCY ANEMIA SECONDARY TO BLOOD LOSS (CHRONIC) Status: Acute Current Visit: Yes (4) MSSA bacteremia SNOMED Code(s): 842311500, 822843854 Code(s): R78.81 - BACTEREMIA Status: Acute Current Visit: Yes - Problem List Review Problem List Initiated/Reviewed/Updated: Yes - My Orders Last 24 Hours: My Active Orders 05/22/18 09:57 Morphine [Morphine 20 MG/ML Soln] 20 mg SL Q4H PRN 05/22/18 15:28 Hyoscyamine [Hyomax-SL] 0.125 mg SL Q4H PRN - Plan Plan:: 62 yo male admitted for pain management of extensive metastatic prostate cancer. fentanyl to 100 mcq q 72 h , d/c dilaudid , start morphine solution 20 mg po q 4 h prn For left thigh wound - local dressing , Patient is comfort measures , no more blood work , no more antibiotics, pain management only , d/c all other medications
[2018-05-22] MEDS: fentaNYL 100 MCG/HR Transdermal Patch TOP SCH (18:39)
[2018-05-23] MEDS: Nystatin Topical Powder 15 GM Bottle TOP SCH (06:41)
--- NOTE | 2018-05-23 10:07 | PCM.DCSUM1 ---
Discharge Summary - Hospital Course HPI Initial Comments: Patient is a 62-year-old male with history of prostate cancer that has metastasized to his bones. The patient was discharged from [facility] in [place] yesterday. He had been admitted for pain control. His sister took him home to [place] and was unable to get him out of the car. He slept in the car. She spoke to oncology here in [place] who direct admitted him for pain control, hospice consult, and skilled nursing placement. He is reporting severe pain in the left hip. He reports previous pin placement/surgery in left femur. He was told that a screw broke off in the distal femur. He has an open wound on the left trochanter that is painful as well. He is unsure how long it has been there. He denies fever or chills. The patient has not been mobile since December. He uses fentanyl patch, oxycodone and Dilaudid by mouth without relief. He reports he is no longer getting treatment for his cancer. 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 SNOMED Code(s): 344679098 ICD Code: C49.22 - MALIG NEOPLM OF CONN AND SOFT TISS OF LEFT LOW LIMB, INC HIP Status: Acute Current Visit: Yes (2) Prostate cancer metastatic to bone SNOMED Code(s): 84422705 ICD Code: C61 - MALIGNANT NEOPLASM OF PROSTATE; C79.51 - SECONDARY MALIGNANT NEOPLASM OF BONE Status: Acute Current Visit: No (3) Anemia due to blood loss, chronic SNOMED Code(s): 449761214 ICD Code: D50.0 - IRON DEFICIENCY ANEMIA SECONDARY TO BLOOD LOSS (CHRONIC) Status: Acute Current Visit: Yes (4) MSSA bacteremia SNOMED Code(s): 215982580, 503215059 ICD Code: R78.81 - BACTEREMIA Status: Acute Current Visit: Yes - Patient Summary/Data Consults: Consultations 04/28/18 16:10 Consult to Hospice [CONS] Routine 05/02/18 10:59 Consult to Physician [CONS] Routine Hospital Course: Patient admitted in the hospital for pain control , had hospice consult . Patient [place]. Patient [place] the [place] medicaid now. In the hospital he was treated with iv antibiotics for his wound infection , and he also was transfused 2 units of blood . Family wanted him to be treated medically for fever and anemia. They decided few days ago to make him comfort measures and discontinue all his medications , except medications for pain , nausea and constipations. Patient to be discharged to the [facility] today.His medications were adjusted and titrated up to control his pain.Patient to follow up with the [facility] physician and to have hospice in 5 days. - Patient Instructions Diet: Usual Diet as Tolerated Activity: As Tolerated - Discharge Plan Prescriptions/Med Rec: fentaNYL [Duragesic] 100 mcg TOP Q72H 9 Days #3 patch Hyoscyamine [Hyomax-SL] 0.125 mg SL Q4H PRN #42 tab.sl PRN Reason: excessive secretions Morphine [Morphine 20 MG/ML Soln] 20 mg SL Q4H PRN #1 bottle PRN Reason: Pain Nystatin [Nystop] 1 gram TOP TID #1 bottle Home Medications: Home Meds Docusate Sodium 100 mg PO DAILY 04/22/18 [History] Ondansetron [Zofran] 8 mg PO TID PRN 04/22/18 [History] Prochlorperazine [Compazine] 10 mg PO Q6H PRN 04/22/18 [History] predniSONE [Prednisone] 5 mg PO BID 04/22/18 [History] Ascorbic Acid [Vitamin C] 1,000 mg PO DAILY 04/28/18 [History] Aspirin 325 mg PO DAILY 04/28/18 [History] Cholecalciferol (Vitamin D3) [Vitamin D3] 15,000 unit PO DAILY 04/28/18 [History ] Hyoscyamine [Hyomax-SL] 0.125 mg SL Q4H PRN #42 tab.sl 05/23/18 [Rx] Morphine [Morphine 20 MG/ML Soln] 20 mg SL Q4H PRN #1 bottle 05/23/18 [Rx] Nystatin [Nystop] 1 gram TOP TID #1 bottle 05/23/18 [Rx] fentaNYL [Duragesic] 100 mcg TOP Q72H 9 Days #3 patch 05/23/18 [Rx] Patient Handouts: Morphine oral solution, Nystatin topical powder, Prostate Cancer, [id number], Chronic Pain, Adult, Fentanyl skin patch, Hyoscyamine sublingual tablet Referrals: Ad Bazzi MD [Physician] - 05/26/18 - Discharge Summary/Plan Comment DC Time >30 min.: Yes - General Info Date of Service: 05/23/18 - Review of Systems General: Reports: Fatigue HEENT: Reports: No Symptoms Pulmonary: Reports: Shortness of Breath - Patient Data Vitals - Most Recent: Last Vital Signs Temp 97.7 F 05/23/18 07:30 Pulse 108 H 05/23/18 07:30 Resp 20 05/23/18 07:30 BP 111/73 05/23/18 07:30 Pulse Ox 94 L 05/23/18 07:30 Weight - Most Recent: 245 lb 13.047 oz I&O - Last 24 hours: Intake & Output 05/22/18 05/23/18 05/23/18 22:59 06:59 14:59 Intake Total 80 10 Balance 80 10 Med Orders - Current: Current Medications Albuterol (Ventolin Hfa) 8 gm INH Q6HRRT PRN PRN Reason: Wheezing Last Admin: 05/19/18 20:48 Dose: 2 dose Fentanyl (Duragesic) 100 mcg TOP Q72H [facility] Last Admin: 05/22/18 18:39 Dose: 100 mcg Hyoscyamine (Hyomax-Sl) 0.125 mg SL Q4H PRN PRN Reason: excessive secretions Last Admin: 05/22/18 16:44 Dose: 0.125 mg Morphine Sulfate (Morphine 20 Mg/Ml Soln) 20 mg SL Q4H PRN PRN Reason: Pain Last Admin: 05/22/18 22:00 Dose: 20 mg Nystatin (Nystop) 0 gm TOP TID [facility] Last Admin: 05/23/18 06:41 Dose: Not Given Ondansetron HCl (Zofran) 4 mg IVPUSH Q4H PRN PRN Reason: Nausea/Vomiting Last Admin: 05/01/18 06:32 Dose: 4 mg Discontinued Medications Acetaminophen (Tylenol) 650 mg PO Q6H PRN PRN Reason: Fever Last Admin: 05/22/18 00:36 Dose: 650 mg Apixaban (Eliquis) 5 mg PO BID [facility] Last Admin: 05/22/18 08:55 Dose: 5 mg Aspirin (Aspirin) 325 mg PO DAILY [facility] Last Admin: 05/22/18 08:55 Dose: 325 mg Calcium Carbonate/Glycine (Tums) 1,000 mg PO DAILY [facility] Last Admin: 05/22/18 08:56 Dose: 1,000 mg Cholecalciferol (Vitamin D3) 3,000 units PO DAILY [facility] Last Admin: 05/22/18 08:55 Dose: 3,000 units Docusate Sodium (Colace) 100 mg PO DAILY [facility] Last Admin: 05/13/18 09:14 Dose: 100 mg Docusate Sodium (Colace) 200 mg PO BID [facility] Last Admin: 05/22/18 09:02 Dose: Not Given Enoxaparin Sodium (Lovenox) 40 mg SUBCUT Q24H [facility] Last Admin: 05/08/18 16:14 Dose: 40 mg Enoxaparin Sodium (Lovenox) 40 mg SUBCUT Q24H [facility] Last Admin: 05/17/18 16:36 Dose: Not Given Fentanyl (Duragesic) 25 mcg TOP Q72H [facility] Last Admin: 05/01/18 08:16 Dose: 25 mcg Fentanyl (Duragesic) 50 mcg TOP Q72H [facility] Last Admin: 05/11/18 09:58 Dose: 50 mcg Fentanyl (Duragesic) 75 mcg TOP Q72H [facility] Last Admin: 05/12/18 16:54 Dose: 75 mcg Gabapentin (Neurontin) 300 mg PO TID [facility] Last Admin: 05/22/18 14:49 Dose: Not Given Heparin Sodium (Porcine) (Heparin Lock Flush 100 Units/Ml) 500 units FLUSH ONETIME ONE Stop: 04/28/18 14:28 Last Admin: 04/28/18 15:40 Dose: 500 units Hydromorphone HCl (Dilaudid) 2 mg IVPUSH Q4H PRN PRN Reason: Pain Last Admin: 05/03/18 17:27 Dose: 2 mg Hydromorphone HCl (Dilaudid) 2 mg IVPUSH Q2H PRN PRN Reason: Pain Last Admin: 05/10/18 08:54 Dose: 2 mg Hydromorphone HCl (Dilaudid) 2 mg IVPUSH Q1H PRN PRN Reason: Pain Last Admin: 05/13/18 12:10 Dose: 2 mg Hydromorphone HCl (Dilaudid) 4 mg PO Q4H PRN PRN Reason: Pain Last Admin: 05/17/18 09:51 Dose: 4 mg Hydromorphone HCl (Dilaudid) 6 mg PO Q4H PRN PRN Reason: Pain Last Admin: 05/21/18 10:26 Dose: 6 mg Hydromorphone HCl (Dilaudid) 6 mg PO Q4H [facility] Last Admin: 05/21/18 18:22 Dose: 6 mg Hyoscyamine (Hyomax-Sl) 0.125 mg SL Q4H [facility] Vancomycin HCl 1,250 mg/ (Sodium Chloride) 250 mls @ 166.667 mls/hr IV Q8H [facility] Last Admin: 04/30/18 08:37 Dose: 166 mls/hr Clindamycin Phosphate 600 mg/ (Premix) 50 mls @ 100 mls/hr IV Q6H [facility] Last Admin: 04/30/18 13:56 Dose: Not Given Clindamycin Phosphate 600 mg/ (Premix) 50 mls @ 100 mls/hr IV Q6H [facility] Last Admin: 05/01/18 07:05 Dose: 100 mls/hr Levofloxacin/Dextrose 750 mg/ (Premix) 150 mls @ 100 mls/hr IV Q24H [facility] Last Admin: 05/13/18 09:28 Dose: Not Given Lactated Ringer's (Ringers, Lactated) 500 mls @ 999 mls/hr IV ASDIRECTED [facility] Last Admin: 05/13/18 14:46 Dose: 999 mls/hr Sodium Chloride (Normal Saline) 500 mls @ 999 mls/hr IV ONETIME ONE Stop: 05/14/18 10:52 Last Admin: 05/14/18 10:34 Dose: 999 mls/hr Vancomycin HCl 1,500 mg/ (Sodium Chloride) 500 mls @ 333.333 mls/hr IV Q12H [facility] Last Admin: 05/16/18 17:45 Dose: Not Given Lactated Ringer's (Ringers, Lactated) 1,000 mls @ 999 mls/hr IV ASDIRECTED [facility] Piperacillin Sod/Tazobactam (Sod 3.375 gm/ Sodium Chloride) 50 mls @ 100 mls/ hr IV Q8H [facility] Last Admin: 05/16/18 13:34 Dose: 100 mls/hr Lactated Ringer's (Ringers, Lactated) 1,000 mls @ 100 mls/hr IV ASDIRECTED [facility] Last Admin: 05/15/18 12:50 Dose: 100 mls/hr Ceftriaxone Sodium/Dextrose 2 (gm/ Premix) 50 mls @ 100 mls/hr IV Q24H [facility] Last Admin: 05/19/18 17:01 Dose: 100 mls/hr Levofloxacin/Dextrose 750 mg/ (Premix) 150 mls @ 100 mls/hr IV Q24H [facility] Last Admin: 05/17/18 16:56 Dose: 100 mls/hr Levofloxacin (Levaquin) 750 mg PO ONETIME ONE Stop: 05/14/18 14:22 Last Admin: 05/14/18 14:38 Dose: 750 mg Losartan Potassium (Cozaar) 100 mg PO DAILY [facility] Last Admin: 05/13/18 09:16 Dose: Not Given Morphine Sulfate (Morphine 20 Mg/Ml Soln) 5 mg PO Q4H PRN PRN Reason: Pain Last Admin: 05/16/18 10:27 Dose: 5 mg Morphine Sulfate (Morphine 20 Mg/Ml Soln) 10 mg PO Q4H PRN PRN Reason: Pain Last Admin: 05/16/18 17:29 Dose: 10 mg Morphine Sulfate (Morphine 20 Mg/Ml Soln) 5 mg SL Q4H PRN PRN Reason: Pain Omeprazole (Omeprazole) 20 mg PO ACBREAKFAST [facility] Last Admin: 05/22/18 06:31 Dose: 20 mg Oxycodone HCl (Oxycodone) 5 mg PO Q4H PRN PRN Reason: Pain Last Admin: 05/10/18 08:33 Dose: 5 mg Oxycodone HCl (Oxycodone) 10 mg PO Q4H PRN PRN Reason: Pain Last Admin: 05/12/18 17:58 Dose: 10 mg Xlm100/Iron Fumarate /Fa/Dss [ 19 Tablet] 1 Tab 1 each PO DAILY [facility] Last Admin: 05/22/18 09:03 Dose: Not Given Polyethylene Glycol (Miralax) 17 gm PO DAILY [facility] Last Admin: 05/22/18 09:03 Dose: Not Given Polyethylene Glycol (Miralax) 17 gm PO BEDTIME PRN PRN Reason: Constipation Potassium Chloride (Klor-Con 8) 8 meq PO BID [facility] Last Admin: 05/01/18 09:45 Dose: 8 meq Prednisone (Prednisone) 5 mg PO BIDMEALS [facility] Last Admin: 05/22/18 08:55 Dose: 5 mg Prochlorperazine Maleate (Compazine) 10 mg PO Q6H PRN PRN Reason: Nausea Sodium Polystyrene Sulfonate (Kayexalate) 15 gm PO ONETIME ONE Stop: 05/14/18 14:15 Last Admin: 05/14/18 14:38 Dose: 15 gm Vancomycin HCl (Pharmacy To Dose - Vancomycin) 1 dose .XX ASDIRECTED [facility] Vancomycin HCl (Pharmacy To Dose - Vancomycin) 0 dose .XX ASDIRECTED [facility] - Exam Quality Assessment: Reports: Supplemental Oxygen (3l) HEENT: Reports: Pupils Equal Neck: Reports: Supple Lungs: Reports: Decreased Breath Sounds Cardiovascular: Reports: Regular Rhythm, Tachycardia GI/Abdominal Exam: Normal Bowel Sounds, Soft, Non-Tender, No Organomegaly Back Exam: Reports: Normal Inspection Extremities: Normal Inspection Skin: Reports: Warm, Dry Neurological: Reports: No New Focal Deficit Psy/Mental Status: Reports: Alert
[2018-05-23] MEDS: Morphine Oral Concentrate 20 MG/ML 30 ML Bottle SL PRN (10:38)
[2018-05-23 12:13] VITALS: BP 138/80
[2018-05-23] MEDS ORDERED: Heparin Sodium 100 Units/ML 3 ML Syringe FLUSH ONE (12:13)
== END 2018-05-23 12:40 | disposition home or self-care (01) | DRG 556 ==
LOC: MW.MS 14:00
PROVIDERS: ADMIT Internal Medicine; ATTEND Internal Medicine
PROC: 30233N1 Transfusion of Nonautologous Red Blood Cells into Peripheral Vein, Percutaneous Approach (ICD-10-PCS; principal; 2018-04-30)
DX: M25.552 Pain in left hip (principal); C49.22 Malignant neoplasm of connective and soft tissue of left lower limb, including hip; C79.51 Secondary malignant neoplasm of bone; C61 Malignant neoplasm of prostate; D50.0 Iron deficiency anemia secondary to blood loss (chronic); Z51.5 Encounter for palliative care; Z66 Do not resuscitate; S71.002A Unspecified open wound, left hip, initial encounter; B95.61 Methicillin susceptible Staphylococcus aureus infection as the cause of diseases classified elsewhere; Z79.899 Other long term (current) drug therapy; Z79.82 Long term (current) use of aspirin; Z88.8 Allergy status to other drugs, medicaments and biological substances; R01.1 Cardiac murmur, unspecified; I10 Essential (primary) hypertension; K21.9 Gastro-esophageal reflux disease without esophagitis; M06.9 Rheumatoid arthritis, unspecified; F32.9 Major depressive disorder, single episode, unspecified; Z87.891 Personal history of nicotine dependence
CPT/HCPCS: 36415; 36430; 73700-26-LT; 73700-LT; 80048; 80053; 80202; 81001; 82550; 83605; 85014; 85018; 85025; 85027; 85610; 85652; 86850; 86900; 86901; 86920; 86921; 86922; 87040; 87070; 87077; 87086; 87186; 93005; 94640; A9270-GY; J0696; J1170; J1642; J1650; J1956; J2405; J2543; J3370; J3490; J7040; J7050; J7120; P9016